=== PATIENT | female | born 1955 | race Caucasian/White ===

== ENCOUNTER 2020-07-26 01:47 | Inpatient (IN) ==
[2020-07-26] MEDS ORDERED: IPRATROPIUM/ALBUTEROL 3 ML AMPUL.NEB NEB ONE ×3 (01:55→02:40)
--- NOTE | 2020-07-26 02:15 | Emergency Department Note ---
SOB HPI General Chief Complaint: Shortness of Breath/Dyspnea Stated Complaint: shortness of breath Time Seen by Provider: 07/26/20 02:02 Source: family Mode of arrival: ambulatory Limitations: no limitations History of Present Illness HPI Narrative: This pleasant 64-year-old female describes shortness of breath since around 8:00. 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 She is a smoker. She does use her inhalers. She came in on her own ambulation. She has had some sweating but no fevers or chills. She has been coughing some. Has had some clear phlegm. She has a history of COPD. She continues to smoke 2 to 3 cigarettes/day. She has not had any associated sore throat, runny nose, change in smell or change in taste. Some mild chest discomforts. No nausea. No lightheadedness or dizziness Related Data Previous Rx's Medication Instructions Recorded albuterol sulfate 1 - 2 puff IH Q4H PRN #1 hfa.aer.ad 09/27/19 fluticasone propionate 2 puff INH BID #1 inhaler 12/18/19 Allergies Allergy/AdvReac Type Severity Reaction Status Date / Time aspirin AdvReac Unknown Gastrointestinal Verified 12/18/19 02:59 Upset Review of Systems ROS ROS Narrative: Narrative: See HPI No fevers or chills No sore throat or runny nose Chest pain as above Some coughing. No abdominal pain diarrhea constipation hematochezia No dysuria frequency No lightheadedness or dizziness No anxiety or depression. PFSH Narrative Patient History Narrative: DENIES diabetes, DVT, PE, ILIANA. Denies anxiety and depression. NO FAMILY HISTORY: Of asthma, diabetes, heart disease Medical/Surgical/Family History All Active Problems Hypoxia (Acute) COPD exacerbation (Acute) Abnormal chest x-ray (Acute) Exercise hypoxemia (Acute) Cigarette smoker (Chronic) Medical History (Updated 07/26/20 @ 09:42 by Boy Murphy DO) Abnormal chest x-ray (Acute) Cigarette smoker (Chronic) 2-3 per day (07-25-2020) COPD exacerbation (Acute) Exercise hypoxemia (Acute) Pleural effusion (Resolved) Surgical History (Updated 07/26/20 @ 09:26 by Boy Murphy DO) History of tonsillectomy (Acute) History of tubal ligation (Acute) Social History Smoking Status: Current every day smoker Alcohol Intake Frequency: 0-2 drinks per day Exam Narrative Narrative: Narrative: General Limitations: no limitations General appearance: alert, in no apparent distress (But moderately short of breath.) and nontoxic Head Head: atraumatic and normocephalic Eye Eye: Present normal appearance, PERRL and EOMI ENT ENT: Present normal oropharynx and mucous membranes dry (Mildly) Neck Neck: Present trachea midline; Absent lymphadenopathy and thyromegaly Chest Chest: Present symmetric chest wall rise Respiratory Respiratory: Present normal lung sounds bilaterally, wheezes (Scattered few wheezes after nebulizer treatment.) and other (After 1 nebulizer treatment still having some dyspnea with 6-7 words.); Absent respiratory distress, rales/crackles, stridor, accessory muscle use and prolonged expiratory phase Cardiovascular Cardiovascular: Present regular rate and normal rhythm; Absent systolic murmur and diastolic murmur Adbominal Abdominal: Present soft; Absent distention, tenderness, guarding, rebound, rigidity, organomegaly and mass Extremities Extremities: Absent pedal edema, pretibial edema, calf tenderness and cyanosis Back Back: Absent CVA tenderness (R), CVA tenderness (L) and spinous process tenderness Neurological Neurological: Present alert and oriented X3 Psychiatric Psychiatric: Present normal affect, anxious (mildly), polite and pleasant; Abs ent depressed, agitated and poor eye contact Skin Skin: Present warm and dry; Absent cyanosis and pallor Course Vital Signs Vital signs: Vital Signs Temperature 97.5 F 07/26/20 01:48 Pulse Rate 107 H 07/26/20 01:48 Respiratory Rate 17 07/26/20 01:48 Blood Pressure 143/75 07/26/20 01:48 Pulse Oximetry (%) 92 07/26/20 01:48 Temperature 97.8 F 07/26/20 09:10 Pulse Rate 97 H 07/26/20 09:00 Respiratory Rate 24 H 07/26/20 09:10 Blood Pressure 135/84 07/26/20 09:10 Pulse Oximetry (%) 93 07/26/20 09:10 [facility] MDM Narrative Medical decision making narrative: 2:04 AM - acute onset of shortness of breath with some wheeziness. Suspect asthmatic component of COPD versus pneumonia versus other infectious or coronary/cardiac component. ACS and pulmonary work- up. Chest x-ray was later added. This was read as "moderate COPD". ABG also later added and was fairly unremarkable for CO2 retention, acidosis, or hypoxia. Was done on 2 L. Patient does not usually use oxygen or have it available at home. Saturations witnessed to decrease into the upper 80s multiple times in this after several doses of DuoNeb. Because of the above I spoke with patient and she is agreeable to hospital admission. Hospital admission is requiring several hours of delay until 7 AM to know if we will have staff/bed availability. Patient is willing to wait. Approximately 7:45 AM, bed availability reassured and I spoke with the ospitalist, Dr. Vidal, who is agreeable to accept this patient for admission. Lab Data Result diagrams: 07/26/20 02:20 07/26/20 02:20 Labs: Lab Results 07/26/20 07/26/20 07/26/20 Range/Units 02:20 02:20 02:20 WBC 7.3 (4.50-11.00) K/mcL RBC 4.11 (3.59-5.38) M/mcL Hgb 13.3 (11.2-15.7) g/dL Hct 39.0 (34.1-44.9) % MCV 94.9 (80.0-100.0) fL MCH 32.4 (26.0-34.0) pg MCHC 34.1 (31.0-36.0) g/dL RDW 12.0 (11.5-14.5) % Plt Count 240 (140-440) K/mcL MPV 10.9 H (7.4-10.4) fL Gran % 55.8 (38.0-78.0) % Lymph % (Auto) 26.7 (15.5-49.0) % [place] % (Auto) 10.6 (1.0-12.0) % Eos % (Auto) 6.3 (0.0-7.0) % Baso % (Auto) 0.6 (0.0-2.0) % Gran # 4.06 (1.80-8.00) K/mcL Lymph # (Auto) 1.94 (1.50-4.80) K/mcL [place] # (Auto) 0.77 (0.10-0.90) K/mcL Eos # (Auto) 0.46 (0.00-0.70) K/mcL Baso # (Auto) 0.04 (0.00-0.30) K/mcL Sodium 142 (133-145) mmol/L Potassium 3.7 (3.3-5.1) mmol/L Chloride 106 (96-108) mmol/L Carbon Dioxide 22 (22-30) mmol/L Anion Gap 14.0 (8-16) BUN 16 (8-23) mg/dl Creatinine 0.8 (0.6-1.1) mg/dl GFR Calculation 77 Glucose 92 (70-105) mg/dL Calcium 9.7 (8.6-10.4) mg/dl Total Bilirubin 0.5 (0.0-1.0) mg/dL AST 18 (0-37) U/l ALT 12 (0-40) U/l Alkaline Phosphatase 94 (39-117) U/L Troponin T < 0.01 (0-0.03) ng/ml Total Protein 6.9 (5.9-8.4) gm/dL Albumin 4.1 (3.2-5.2) gm/dL Globulin 2.8 (2.2-3.7) gm/dL Albumin/Globulin Ratio 1.5 (1.0-2.3) Procalcitonin (<0.10) ng/mL 07/26/20 Range/Units 02:20 WBC (4.50-11.00) K/mcL RBC (3.59-5.38) M/mcL Hgb (11.2-15.7) g/dL Hct (34.1-44.9) % MCV (80.0-100.0) fL MCH (26.0-34.0) pg MCHC (31.0-36.0) g/dL RDW (11.5-14.5) % Plt Count (140-440) K/mcL MPV (7.4-10.4) fL Gran % (38.0-78.0) % Lymph % (Auto) (15.5-49.0) % [place] % (Auto) (1.0-12.0) % Eos % (Auto) (0.0-7.0) % Baso % (Auto) (0.0-2.0) % Gran # (1.80-8.00) K/mcL Lymph # (Auto) (1.50-4.80) K/mcL [place] # (Auto) (0.10-0.90) K/mcL Eos # (Auto) (0.00-0.70) K/mcL Baso # (Auto) (0.00-0.30) K/mcL Sodium (133-145) mmol/L Potassium (3.3-5.1) mmol/L Chloride (96-108) mmol/L Carbon Dioxide (22-30) mmol/L Anion Gap (8-16) BUN (8-23) mg/dl Creatinine (0.6-1.1) mg/dl GFR Calculation Glucose (70-105) mg/dL Calcium (8.6-10.4) mg/dl Total Bilirubin (0.0-1.0) mg/dL AST (0-37) U/l ALT (0-40) U/l Alkaline Phosphatase (39-117) U/L Troponin T (0-0.03) ng/ml Total Protein (5.9-8.4) gm/dL Albumin (3.2-5.2) gm/dL Globulin (2.2-3.7) gm/dL Albumin/Globulin Ratio (1.0-2.3) Procalcitonin 0.06 (<0.10) ng/mL Discharge Plan Patient/Caregiver Discharge Instructions Pt seen by HOSPICE CLINICAL MARKETER/PA only: No Clinical Impression: COPD exacerbation, Hypoxia Patient Disposition: Xfer As Outpt/Obs ([facility]) Condition: Fair Discharge Date/Time: 07/26/20 09:20
[2020-07-26] MEDS ORDERED: methylPREDNISolone SOD SUCC 125 MG/2 ML VIAL IV ONE (02:40)
[2020-07-26 03:15] LABS: Basophils # (Auto) 0.04 K/mcL (0.00-0.30); Basophils % (Auto) 0.6 % (0.0-2.0); Eosinophils # (Auto) 0.46 K/mcL (0.00-0.70); Eosinophils % (Auto) 6.3 % (0.0-7.0); Granulocytes % (Auto) 55.8 % (38.0-78.0); Hemoglobin 13.3 g/dL (11.2-15.7); Lymphocytes # (Auto) 1.94 K/mcL (1.50-4.80); Lymphocytes % (Auto) 26.7 % (15.5-49.0); Mean Cell Volume 94.9 fL (80.0-100.0); Mean Corpuscular HGB Conc 34.1 g/dL (31.0-36.0); Mean Platelet Volume 10.9 fL (7.4-10.4); Monocytes # (Auto) 0.77 K/mcL (0.10-0.90); Monocytes % (Auto) 10.6 % (1.0-12.0); Platelet Count 240 K/mcL (140-440); RBC 4.11 M/mcL (3.59-5.38); WBC 7.3 K/mcL (4.50-11.00)
[2020-07-26 03:35] LABS: ALT/SGPT 12 U/l (0-40); AST/SGOT 18 U/l (0-37); Albumin 4.1 gm/dL (3.2-5.2); Albumin/Globulin Ratio 1.5 (1.0-2.3); Alkaline Phosphatase 94 U/L (39-117); Bilirubin,Total 0.5 mg/dL (0.0-1.0); Blood Urea Nitrogen 16 mg/dl (8-23); Calcium 9.7 mg/dl (8.6-10.4); Carbon Dioxide 22 mmol/L (22-30); Chloride 106 mmol/L (96-108); Globulin 2.8 gm/dL (2.2-3.7); Glomerular Filtration Rate 77; Glucose 92 mg/dL (70-105)
[2020-07-26] MEDS ORDERED: AZITHROMYCIN 500 MG in DEXTROSE 5% IN WATER 250 ML IV ONE (05:30)
--- NOTE | 2020-07-26 08:00 | XRay Report ---
HISTORY: Smoker exacerbation of COPD and hypoxia FINDINGS: Lungs are hyperinflated. There is interstitial fibrosis throughout both lungs with the greatest involvement in the right lower lobe. There is no evidence of superimposed pneumonia at this time. No mass or congestive heart failure are present. There is no pleural effusion. The heart size is normal. There has been relatively little change since 12/18/19. IMPRESSION: Moderate COPD Interpreted and Authenticated by: Jett Parisi 07/26/20
--- NOTE | 2020-07-26 08:01 | Internal Med History&Physical ---
HPI History of Present Illness Patient information: Note initiated : 07/26/20 at 8:00 am Service Date, if different from initiated Date: [] Patient: Nuzhat Donis 64 y/o F admitted on for SOB . Chief Complaint: SOB History of present illness: Ms. Donis is a 64 year old F with a history of COPD/active smoking who presents to the ER with acute onset shortness of breath since last evening. 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 She felt an abrupt onset of shortness of breath. She was unable to breathe and presents to the ER. She denies prior similar episodes however she has known COPD and continues to smoke half to three-quarter pack a day. She denies exposure to sick contacts, fever, sore throat, loss of taste or smell, myalgias, chest pain or headache. Initial work-up in the ER was consistent with COPD exacerbation/chest imaging consistent with pneumonia. Patient was started on antibiotics along with bronchodilators. Cultures were drawn. Subsequently hospitalist service was consulted. Patient was markedly tachypneic and tachycardic on arrival requiring 3 L oxygen to maintain sats. COVID-19 test pending. At the time of my evaluation patient is able to talk in full sentences however she is sitting in bed appears minimally labored but says she has improved since arrival. She endorses history as above. Review of systems A 10 point review system was performed and is negative except for ones discussed above PFSH PFSH All Active Problems (Updated 07/26/20 @ 02:54 by Boy Murphy DO) COPD exacerbation (Acute) Exercise hypoxemia (Acute) Abnormal chest x-ray (Acute) Medical History (Updated 07/26/20 @ 02:54 by Boy Murphy DO) Pleural effusion (Resolved) Social History (Updated 09/30/19 @ 14:54 by EDUIN Ruby) smoking status: Current every day smoker tobacco type: cigarettes per day: 10 alcohol intake frequency: 0-2 drinks per day MEDS/ALLERGIES Home Medications and Allergies Home Medications Medication Instructions Recorded Confirmed Type albuterol sulfate 1 - 2 puff IH Q4H PRN #1 hfa.aer.ad 09/27/19 09/30/19 Rx fluticasone propionate 2 puff INH BID #1 inhaler 12/18/19 Rx Allergies Allergy/AdvReac Type Severity Reaction Status Date / Time aspirin AdvReac Unknown Gastrointestinal Verified 12/18/19 02:59 Upset EXAM Constitutional Vitals: Temp Pulse Resp BP Pulse Ox 97.5 F 88 22 110/63 93 07/26/20 01:48 07/26/20 07:18 07/26/20 02:06 07/26/20 07:18 07/26/20 07:18 Anxious, labored Head normocephalic Oral cavity moist No ear nose discharge Eye movement symmetrical Neck supple no lymphadenopathy S1-S2 tachycardia Rapid labored breathing Nondistended nontender abdomen Lower extremity no cyanosis clubbing or joint swelling Skin no suspicious lesion Psych anxious but alert cooperative Neuro normal higher function DATA Data Completed and Pending Labs: Labs from last 24 hours 07/26/20 07/26/20 07/26/20 02:20 02:20 02:20 WBC RBC Hgb Hct MCV MCH MCHC RDW Plt Count MPV Gran % Lymph % (Auto) [place] % (Auto) Eos % (Auto) Baso % (Auto) Gran # Lymph # (Auto) [place] # (Auto) Eos # (Auto) Baso # (Auto) Sodium 142 Potassium 3.7 Chloride 106 Carbon Dioxide 22 Anion Gap 14.0 BUN 16 Creatinine 0.8 GFR Calculation 77 Glucose 92 Calcium 9.7 Total Bilirubin 0.5 AST 18 ALT 12 Alkaline Phosphatase 94 Troponin T < 0.01 Total Protein 6.9 Albumin 4.1 Globulin 2.8 Albumin/Globulin Ratio 1.5 Procalcitonin 0.06 07/26/20 02:20 WBC 7.3 RBC 4.11 Hgb 13.3 Hct 39.0 MCV 94.9 MCH 32.4 MCHC 34.1 RDW 12.0 Plt Count 240 MPV 10.9 H Gran % 55.8 Lymph % (Auto) 26.7 [place] % (Auto) 10.6 Eos % (Auto) 6.3 Baso % (Auto) 0.6 Gran # 4.06 Lymph # (Auto) 1.94 [place] # (Auto) 0.77 Eos # (Auto) 0.46 Baso # (Auto) 0.04 Sodium Potassium Chloride Carbon Dioxide Anion Gap BUN Creatinine GFR Calculation Glucose Calcium Total Bilirubin AST ALT Alkaline Phosphatase Troponin T Total Protein Albumin Globulin Albumin/Globulin Ratio Procalcitonin A/P Narrative A/P Narrative: * Acute exacerbation of COPD. Continue bronchodilators/steroids/supplemental oxygen. * Acute hypoxic respiratory failure PO2 60 on 2 L oxygen on ABG. * Interstitial fibrosis on chest imaging. * Tobacco dependence-counseled for cessation * Full code * Prophylaxis heparin Plan * PCU observation admit * Bronchodilators steroids * Antibiotic coverage * Supplemental oxygen * PT OT nutrition support Time Spent With Patient Time: Total time spent is greater than 50% in coordination of care (as documented) at patient's floor/unit and/or counseling patient:
[2020-07-26] MEDS ORDERED: POLYETHYLENE GLYCOL 3350 17 GM PACKET PO PRN (09:10)
[2020-07-26] MEDS ORDERED: ACETAMINOPHEN 650 MG/65 ML BOTTLE IV PRN (09:10)
[2020-07-26] MEDS ORDERED: MELATONIN 3 MG TABLET PO PRN (09:10)
[2020-07-26] MEDS ORDERED: POTASSIUM CHLORIDE 20 MEQ PACKET PO PRN (09:10)
[2020-07-26] MEDS ORDERED: METOPROLOL TARTRATE 5 MG/5 ML VIAL IV PRN (09:10)
[2020-07-26] MEDS ORDERED: ONDANSETRON 4 MG/2 ML VIAL IV PRN (09:10)
[2020-07-26] MEDS ORDERED: BISACODYL 10 MG SUPP.RECT PR PRN (09:10)
[2020-07-26] MEDS ORDERED: LEVOFLOXACIN 750 MG/150 ML BAG IV SCH (09:10)
[2020-07-26] MEDS ORDERED: ACETAMINOPHEN 325 MG TABLET PO PRN (09:10)
[2020-07-26] MEDS ORDERED: HYDROmorphone 0.5 MG/0.5 ML SYRINGE IV PRN (09:10)
[2020-07-26] MEDS ORDERED: MAGNESIUM SULFATE 2 GM/50 ML BAG IV PRN (09:10)
[2020-07-26] MEDS ORDERED: ONDANSETRON 4 MG ODT TABLET SL PRN (09:10)
[2020-07-26] MEDS: 0.9 % SODIUM CHLORIDE 1,000 ML IV SCH (10:39)
[2020-07-26] MEDS: HEPARIN 5,000 UNIT/ML VIAL SQ SCH ×2 (10:40→21:47)
[2020-07-26] MEDS: DOCUSATE SODIUM 100 MG CAPSULE PO SCH ×2 (10:40→21:47)
[2020-07-26] MEDS: MULTIVIT,THER IRON,CA,FA & MIN 1 TABLET PO SCH (10:40)
[2020-07-26] MEDS: LEVOFLOXACIN 750 MG/150 ML BAG IV SCH (11:07)
[2020-07-26] MEDS: BUDESONIDE 0.5 MG/2 ML AMPUL.NEB NEB SCH ×2 (12:15→20:38)
[2020-07-26] MEDS ORDERED: BUDESONIDE 0.5 MG/2 ML AMPUL.NEB ONE (12:20)
[2020-07-26] MEDS: 0.9 % SODIUM CHLORIDE 10 ML SYRINGE IV SCH ×2 (12:57→21:47)
[2020-07-26] MEDS: methylPREDNISolone SOD SUCC 125 MG/2 ML VIAL IV SCH ×2 (12:57→18:31)
[2020-07-26] MEDS: NICOTINE 7 MG PATCH TOPICAL SCH (20:14)
[2020-07-26] MEDS ORDERED: MONTELUKAST 10 MG TABLET PO SCH (21:00)
[2020-07-26] MEDS ORDERED: SENNOSIDES/DOCUSATE SODIUM 1 TAB TABLET PO SCH (21:00)
[2020-07-27] MEDS: methylPREDNISolone SOD SUCC 125 MG/2 ML VIAL IV SCH ×2 (00:05→05:47)
[2020-07-27] MEDS: 0.9 % SODIUM CHLORIDE 10 ML SYRINGE IV SCH ×3 (05:47→22:18)
[2020-07-27] MEDS: IPRATROPIUM/ALBUTEROL 3 ML AMPUL.NEB NEB PRN ×3 (05:56→20:48)
[2020-07-27 06:17] LABS: Hematocrit 37.5 % (34.1-44.9); Hemoglobin 12.5 g/dL (11.2-15.7); Mean Cell Volume 97.4 fL (80.0-100.0); Mean Corpuscular HGB Conc 33.3 g/dL (31.0-36.0); Mean Platelet Volume 11.4 fL (7.4-10.4); Platelet Count 242 K/mcL (140-440); RBC 3.85 M/mcL (3.59-5.38); WBC 11.3 K/mcL (4.50-11.00)
[2020-07-27 07:22] LABS: Bilirubin,Direct < 0.2 mg/dL (0.0-0.3)
[2020-07-27 07:28] LABS: ALT/SGPT 11 U/l (0-40); AST/SGOT 15 U/l (0-37); Albumin 3.6 gm/dL (3.2-5.2); Albumin/Globulin Ratio 1.4 (1.0-2.3); Alkaline Phosphatase 87 U/L (39-117); Bilirubin,Total 0.3 mg/dL (0.0-1.0); Blood Urea Nitrogen 14 mg/dl (8-23); Calcium 9.2 mg/dl (8.6-10.4); Carbon Dioxide 19 mmol/L (22-30); Chloride 110 mmol/L (96-108); Globulin 2.6 gm/dL (2.2-3.7); Glomerular Filtration Rate 77; Glucose 147 mg/dL (70-105); Lactate Dehydrogenase 206 U/L (94-250); Phosphorous 3.5 mg/dL (2.7-4.5); Triglycerides 53 mg/dl (<150); Uric Acid 3.6 mg/dL (2.5-8.0)
[2020-07-27 08:25] LABS: Band Neutrophils % 1 % (0-10); Lymphocytes % 5 % (15-49); Monocytes % (Manual) 3 % (1-12); Platelet Estimate NORMAL (NORMAL); RBC Morphology NORMAL (NORMAL); Segmented Neutrophils % 91 % (38-78)
[2020-07-27] MEDS: BUDESONIDE 0.5 MG/2 ML AMPUL.NEB NEB SCH ×2 (09:28→20:48)
[2020-07-27] MEDS: 0.9 % SODIUM CHLORIDE 1,000 ML IV SCH ×2 (09:35→11:03)
[2020-07-27] MEDS: MULTIVIT,THER IRON,CA,FA & MIN 1 TABLET PO SCH (09:36)
[2020-07-27] MEDS: HEPARIN 5,000 UNIT/ML VIAL SQ SCH ×2 (09:36→22:18)
[2020-07-27] MEDS: DOCUSATE SODIUM 100 MG CAPSULE PO SCH ×2 (09:36→22:18)
[2020-07-27] MEDS: LEVOFLOXACIN 750 MG/150 ML BAG IV SCH (09:36)
[2020-07-27] MEDS: NICOTINE 7 MG PATCH TOPICAL SCH (09:40)
[2020-07-27] MEDS ORDERED: PNEUMOCOCCAL 23-VAL P-SAC VAC 0.5 ML SYRINGE IM ONE (10:00)
[2020-07-27] MEDS ORDERED: FLU VACC QS2020-21(6MOS UP)/PF 60 MCG/0.5 ML SYRINGE IM ONE (10:00)
--- NOTE | 2020-07-27 10:08 | Internal Med Progress Note ---
SUBJECTIVE Subjective Patient information: Note initiated : 07/27/20 at 10:05 am Service Date, if different from initiated Date: [] Patient: Nuzhat Donis 64 y/o F admitted on 07/26/20 for SOB . Chief Complaint: Ms. Donis is a 64 year old F with a history of COPD/active smoking who presents to the ER with acute onset shortness of breath since last evening. 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 She felt an abrupt onset of shortness of breath. She was unable to breathe and presents to the ER. She denies prior similar episodes however she has known COPD and continues to smoke half to three-quarter pack a day. She denies exposure to sick contacts, fever, sore throat, loss of taste or smell, myalgias, chest pain or headache. Initial work-up in the ER was consistent with COPD exacerbation/chest imaging consistent with pneumonia. Patient was started on antibiotics along with bronchodilators. Cultures were drawn. Subsequently hospitalist service was consulted. Patient was markedly tachypneic and tachycardic on arrival requiring 3 L oxygen to maintain sats. COVID-19 test pending. At the time of my evaluation patient is able to talk in full sentences however she is sitting in bed appears minimally labored but says she has improved since arrival. 07/27 patient doing remarkably well. White count 11.3 on Solu-Medrol. Clini arnaldo improved now on 2 L oxygen. Continue antibiotic coverage for pneumonia. Feels a lot better. Stable hemodynamics. COVID negative. Transfer to medical floor. Wean oxygen as tolerated. Continue bronchodilators. Smoking cessation counseling performed. Constitutional Vitals: Vital Signs Temp Pulse Resp BP Pulse Ox 98.1 F 73 20 106/69 95 07/27/20 08:42 07/27/20 09:39 07/27/20 09:39 07/27/20 08:42 07/27/20 08:42 Period Temp Pulse Resp BP Sys/Gorman Pulse Ox Last 24 Hr 97.7 F-98.3 F 73-93 15-31 106-134/60-76 92-97 Intake and Output 07/26/20 07/27/20 07/27/20 21:59 05:59 13:59 Intake Total 480 1120 Output Total 950 500 Balance -470 -500 1120 Weight 54.703 kg alert oriented On 2 L oxygen Minimally labored breathing No telemetry events Intake & Output: Intake & Output 07/26/20 07/27/20 07/27/20 21:59 05:59 13:59 Intake Total 480 1120 Output Total 950 500 Balance -470 -500 1120 Weight 54.703 kg Intake: IV 1000 Sodium Chloride 0.9% 1,000 ml @ 1000 50 mls/hr IV .Q20H [facility] Rx#: [id number] Oral 480 120 Output: Void Amount 950 500 Other: Meal Dinner Breakfast Percent of Meal Consumed 75% 100% Feeding Ability Independent Urine Appearance Clear Clear Urine Color Bright Yellow Bright Yellow Urine Odor Normal OBJ DATA Labs CBC & Chem 7: 07/27/20 04:40 07/27/20 04:40 Labs: Abnormal Lab Results 07/27/20 07/27/20 07/26/20 04:40 04:40 02:20 WBC 11.3 H MPV 11.4 H 10.9 H Seg Neutrophils % 91 H Lymphocytes % 5 L Chloride 110 H Carbon Dioxide 19 L Glucose 147 H Meds: Medications Acetaminophen (Tylenol) 650 mg PO Q4-6HP PRN; Protocol PRN Reason: Per Pain Protocol/Fever > 101 Albuterol/Ipratropium (Duoneb) 3 ml NEB Q4HP PRN PRN Reason: Shortness Of Breath Last Admin: 07/27/20 09:28 Dose: 3 ml Documented by: Bisacodyl (Dulcolax) 10 mg FL Q2-3DAYS PRN PRN Reason: Constipation Budesonide (Pulmicort) 0.5 mg NEB Q12 [facility] Last Admin: 07/27/20 09:28 Dose: 0.5 mg Documented by: Docusate Sodium (Colace) 100 mg PO BID [facility] Last Admin: 07/27/20 09:36 Dose: 100 mg Documented by: Heparin Sodium (Porcine) (Heparin) 5,000 unit SQ Q12 [facility] Last Admin: 07/27/20 09:36 Dose: 5,000 unit Documented by: Hydromorphone HCl (Dilaudid) 0.25 - 0.5 mg IV Q4HP PRN; Protocol PRN Reason: Per Pain Protocol Sodium Chloride (Sodium Chloride 0.9%) 1,000 mls @ 50 mls/hr IV .Q20H [facility] Stop: 07/28/20 21:09 Last Admin: 07/27/20 09:35 Dose: 50 mls/hr Documented by: Acetaminophen (Ofirmev) 650 mg in 65 mls @ 130 mls/hr IV Q6HP PRN; Protocol PRN Reason: Per Pain Protocol/Fever > 101 Magnesium Sulfate (Magnesium Sulfate) 2 gm in 50 mls @ 50 mls/hr IV UD PRN PRN Reason: MG = or < 1.7 Levofloxacin (Levaquin) 750 mg in 150 mls @ 100 mls/hr IV Q24H [facility]; Protocol Last Admin: 07/27/20 09:36 Dose: 100 mls/hr Documented by: Iron Carb/Multivit/[place]/Folic Acid (Multivitamin W/Minerals) 1 tab PO DAILY [facility] Last Admin: 07/27/20 09:36 Dose: 1 tab Documented by: Melatonin (Melatonin 3mg Tablet) 3 mg PO HSP PRN PRN Reason: Insomnia Methylprednisolone Sodium Succinate (Solu-Medrol) 60 mg IV Q6 [facility] Last Admin: 07/27/20 05:47 Dose: 60 mg Documented by: Metoprolol Tartrate (Lopressor) 5 mg IV Q5M PRN PRN Reason: Heart Rate > 140 bpm Montelukast Sodium (Singular) 10 mg PO [facility] Last Admin: 07/26/20 21:47 Dose: 10 mg Documented by: Nicotine (Nicoderm) 7 mg TOPICAL DAILY@1000 [facility] Last Admin: 07/27/20 09:40 Dose: 7 mg Documented by: Ondansetron HCl (Zofran Odt) 4 mg SL Q4-6HP PRN; Protocol PRN Reason: Nausea And Vomiting Ondansetron HCl (Zofran) 4 mg IV Q4-6HP PRN; Protocol PRN Reason: Nausea And Vomiting Polyethylene Glycol (Miralax) 17 gm PO DAILYP PRN PRN Reason: Constipation Potassium Chloride (Klor-Con) 40 meq PO DAILYP PRN PRN Reason: K+ < 3.5 Senna/Docusate Sodium (Senna Plus Tablet) 1 tab PO [facility] Last Admin: 07/26/20 21:47 Dose: Not Given Documented by: Sodium Chloride (Saline Flush) 10 ml IV Q8 [facility] Last Admin: 07/27/20 05:47 Dose: 10 ml Documented by: A/P Narrative A/P Narrative: * Acute exacerbation of COPD. Clinically improving on bronchodilators/steroids/supplemental oxygen. Transfer to medical floor. Switch to oral steroids * Acute hypoxic respiratory failure PO2 60 -wean oxygen as tolerated. Clinically improving. * Interstitial fibrosis on chest imaging. * Tobacco dependence-counseled for cessation * Full code * Prophylaxis heparin Plan * Transfer to medical floor * Switch to oral steroid * Continue antibiotic coverage * Wean oxygen as tolerated * PT OT nutrition support * Discharge planning Time Spent With Patient Time: Total time spent is greater than 50% in coordination of care (as documented) at patient's floor/unit and/or counseling patient: QUALITY VTE Deep Vein Thrombosis/Pulmonary Embolism Present on Admission: No
[2020-07-27] MEDS ORDERED: ONDANSETRON 4 MG ODT TABLET SL PRN (10:31)
[2020-07-27] MEDS ORDERED: ONDANSETRON 4 MG/2 ML VIAL IV PRN (10:31)
[2020-07-27] MEDS ORDERED: MAGNESIUM SULFATE 2 GM/50 ML BAG IV PRN (10:31)
[2020-07-27] MEDS ORDERED: MELATONIN 3 MG TABLET PO PRN (10:31)
[2020-07-27] MEDS ORDERED: METOPROLOL TARTRATE 5 MG/5 ML VIAL IV PRN (10:31)
[2020-07-27] MEDS ORDERED: POTASSIUM CHLORIDE 20 MEQ PACKET PO PRN (10:31)
[2020-07-27] MEDS ORDERED: POLYETHYLENE GLYCOL 3350 17 GM PACKET PO PRN (10:31)
[2020-07-27] MEDS ORDERED: ACETAMINOPHEN 325 MG TABLET PO PRN (10:31)
[2020-07-27] MEDS ORDERED: HYDROmorphone 0.5 MG/0.5 ML SYRINGE IV PRN (10:31)
[2020-07-27] MEDS ORDERED: BISACODYL 10 MG SUPP.RECT PR PRN (10:31)
[2020-07-27] MEDS ORDERED: ACETAMINOPHEN 650 MG/65 ML BOTTLE IV PRN (10:31)
[2020-07-27] MEDS ORDERED: LEVOFLOXACIN 750 MG/150 ML BAG IV SCH (11:00)
[2020-07-27] MEDS: predniSONE 20 MG TABLET PO SCH (11:12)
[2020-07-27] MEDS: SENNOSIDES/DOCUSATE SODIUM 1 TAB TABLET PO SCH (22:17)
[2020-07-27] MEDS: MONTELUKAST 10 MG TABLET PO SCH (22:18)
[2020-07-28] MEDS: 0.9 % SODIUM CHLORIDE 10 ML SYRINGE IV SCH ×3 (05:35→23:08)
[2020-07-28] MEDS: 0.9 % SODIUM CHLORIDE 1,000 ML IV SCH (05:41)
[2020-07-28 06:50] LABS: Hematocrit 38.7 % (34.1-44.9); Hemoglobin 12.6 g/dL (11.2-15.7); Mean Corpuscular HGB Conc 32.6 g/dL (31.0-36.0); Platelet Count 257 K/mcL (140-440); RBC 3.91 M/mcL (3.59-5.38); Red Cell Distribution Width 12.5 % (11.5-14.5); WBC 14.1 K/mcL (4.50-11.00)
[2020-07-28 07:09] LABS: ALT/SGPT 11 U/l (0-40); AST/SGOT 14 U/l (0-37); Albumin 3.6 gm/dL (3.2-5.2); Albumin/Globulin Ratio 1.4 (1.0-2.3); Alkaline Phosphatase 76 U/L (39-117); Bilirubin,Direct < 0.2 mg/dL (0.0-0.3); Bilirubin,Total 0.2 mg/dL (0.0-1.0); Blood Urea Nitrogen 16 mg/dl (8-23); Carbon Dioxide 22 mmol/L (22-30); Chloride 108 mmol/L (96-108); Globulin 2.6 gm/dL (2.2-3.7); Glomerular Filtration Rate 77; Glucose 102 mg/dL (70-105); Lactate Dehydrogenase 164 U/L (94-250); Triglycerides 147 mg/dl (<150); Uric Acid 3.2 mg/dL (2.5-8.0)
[2020-07-28] MEDS: predniSONE 20 MG TABLET PO SCH (08:21)
[2020-07-28] MEDS: BUDESONIDE 0.5 MG/2 ML AMPUL.NEB NEB SCH ×2 (08:24→21:06)
[2020-07-28 08:38] LABS: Band Neutrophils % 1 % (0-10); Lymphocytes % 15 % (15-49); Monocytes % (Manual) 7 % (1-12); Platelet Estimate NORMAL (NORMAL); RBC Morphology NORMAL (NORMAL); Segmented Neutrophils % 77 % (38-78)
--- NOTE | 2020-07-28 10:26 | XRay Report ---
HISTORY: COPD FINDINGS: The lungs are moderately hyperinflated with flattened diaphragms. The flattening of the diaphragms has become worse since 07/26/20. There is no evidence of pneumonia, congestive heart failure, mass or pleural effusion. The heart size is normal. IMPRESSION: Worsening air trapping with hyperinflated lungs Interpreted and Authenticated by: Jett Parisi 07/28/20
[2020-07-28] MEDS: MULTIVIT,THER IRON,CA,FA & MIN 1 TABLET PO SCH (11:14)
[2020-07-28] MEDS: DOCUSATE SODIUM 100 MG CAPSULE PO SCH ×2 (11:14→23:09)
--- NOTE | 2020-07-28 11:14 | Internal Med Progress Note ---
SUBJECTIVE Subjective Patient information: Note initiated : 07/28/20 at 11:11 am Service Date, if different from initiated Date: [] Patient: Nuzhat Donis 64 y/o F admitted on 07/26/20 for SOB . Chief Complaint: Ms. Donis is a 64 year old F with a history of COPD/active smoking who presents to the ER with acute onset shortness of breath since last evening. 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 She felt an abrupt onset of shortness of breath. She was unable to breathe and presents to the ER. She denies prior similar episodes however she has known COPD and continues to smoke half to three-quarter pack a day. She denies exposure to sick contacts, fever, sore throat, loss of taste or smell, myalgias, chest pain or headache. Initial work-up in the ER was consistent with COPD exacerbation/chest imaging consistent with pneumonia. Patient was started on antibiotics along with bronchodilators. Cultures were drawn. Subsequently hospitalist service was consulted. Patient was markedly tachypneic and tachycardic on arrival requiring 3 L oxygen to maintain sats. COVID-19 test pending. At the time of my evaluation patient is able to talk in full sentences however she is sitting in bed appears minimally labored but says she has improved since arrival. 07/27 patient doing remarkably well. White count 11.3 on Solu-Medrol. Clini arnaldo improved now on 2 L oxygen. Continue antibiotic coverage for pneumonia. Feels a lot better. Stable hemodynamics. COVID negative. Transfer to medical floor. Wean oxygen as tolerated. Continue bronchodilators. Smoking cessation counseling performed. 07/28-patient doing well. Persistent cough. On oral prednisone/bronchodilators. White count 14.1. Interval chest imaging hyperinflated lung. Continue pulmonary toilet/bronchodilators. Counseled for smoking cessation. Constitutional Vitals: Vital Signs Temp Pulse Resp BP Pulse Ox 98.3 F 69 19 121/72 94 07/28/20 07:19 07/28/20 08:25 07/28/20 08:25 07/28/20 07:19 07/28/20 07:19 Period Temp Pulse Resp BP Sys/Gorman Pulse Ox Last 24 Hr 97.8 F-98.3 F 61-83 16-20 121-141/66-85 91-94 Intake and Output 07/27/20 07/28/20 07/28/20 21:59 05:59 13:59 Intake Total 450 Output Total 850 Balance -400 Weight 56.699 kg Alert oriented Minimal anxiety Nonlabored breathing Frequent cough Intake & Output: Intake & Output 07/27/20 07/28/20 07/28/20 21:59 05:59 13:59 Intake Total 450 Output Total 850 Balance -400 Weight 56.699 kg Intake: Oral 450 Output: Void Amount 850 Other: Meal Dinner Percent of Meal Consumed 0% Feeding Ability Independent Urine Appearance Clear Urine Color Bright Yellow OBJ DATA Labs CBC & Chem 7: 07/28/20 05:45 07/28/20 05:45 Labs: Abnormal Lab Results 07/28/20 07/27/20 07/27/20 05:45 04:40 04:40 WBC 14.1 H 11.3 H MPV 11.0 H 11.4 H Seg Neutrophils % 91 H Lymphocytes % 5 L Chloride 110 H Carbon Dioxide 19 L Glucose 147 H 07/26/20 02:20 WBC MPV 10.9 H Seg Neutrophils % Lymphocytes % Chloride Carbon Dioxide Glucose Meds: Medications Acetaminophen (Tylenol) 650 mg PO Q4-6HP PRN; Protocol PRN Reason: Per Pain Protocol/Fever > 101 Albuterol/Ipratropium (Duoneb) 3 ml NEB Q4HP PRN PRN Reason: Shortness Of Breath Last Admin: 07/27/20 20:48 Dose: 3 ml Documented by: Bisacodyl (Dulcolax) 10 mg [place] Q2-3DAYS PRN PRN Reason: Constipation Budesonide (Pulmicort) 0.5 mg NEB Q12 [facility] Last Admin: 07/28/20 08:24 Dose: 0.5 mg Documented by: Docusate Sodium (Colace) 100 mg PO BID [facility] Last Admin: 07/27/20 22:18 Dose: 100 mg Documented by: Heparin Sodium (Porcine) (Heparin) 5,000 unit SQ Q12 [facility] Last Admin: 07/27/20 22:18 Dose: 5,000 unit Documented by: Hydromorphone HCl (Dilaudid) 0.25 - 0.5 mg IV Q4HP PRN; Protocol PRN Reason: Per Pain Protocol Sodium Chloride (Sodium Chloride 0.9%) 1,000 mls @ 50 mls/hr IV .Q20H [facility] Stop: 07/28/20 21:09 Last Admin: 07/28/20 05:41 Dose: 50 mls/hr Documented by: Acetaminophen (Ofirmev) 650 mg in 65 mls @ 130 mls/hr IV Q6HP PRN; Protocol PRN Reason: Per Pain Protocol/Fever > 101 Magnesium Sulfate (Magnesium Sulfate) 2 gm in 50 mls @ 50 mls/hr IV UD PRN PRN Reason: MG = or < 1.7 Levofloxacin (Levaquin) 750 mg in 150 mls @ 100 mls/hr IV Q24H [facility]; Protocol Iron Carb/Multivit/[place]/Folic Acid (Multivitamin W/Minerals) 1 tab PO DAILY [facility] Melatonin (Melatonin 3mg Tablet) 3 mg PO HSP PRN PRN Reason: Insomnia Metoprolol Tartrate (Lopressor) 5 mg IV Q5M PRN PRN Reason: Heart Rate > 140 bpm Montelukast Sodium (Singular) 10 mg PO [facility] Last Admin: 07/27/20 22:18 Dose: 10 mg Documented by: Nicotine (Nicoderm) 7 mg TOPICAL DAILY@1000 [place] Ondansetron HCl (Zofran Odt) 4 mg SL Q4-6HP PRN; Protocol PRN Reason: Nausea And Vomiting Ondansetron HCl (Zofran) 4 mg IV Q4-6HP PRN; Protocol PRN Reason: Nausea And Vomiting Polyethylene Glycol (Miralax) 17 gm PO DAILYP PRN PRN Reason: Constipation Potassium Chloride (Klor-Con) 40 meq PO DAILYP PRN PRN Reason: K+ < 3.5 Prednisone (Prednisone) 40 mg PO [facility] Last Admin: 07/28/20 08:21 Dose: 40 mg Documented by: Senna/Docusate Sodium (Senna Plus Tablet) 1 tab PO [facility] Last Admin: 07/27/20 22:17 Dose: 1 tab Documented by: Sodium Chloride (Saline Flush) 10 ml IV Q8 [facility] Last Admin: 07/28/20 05:35 Dose: Not Given Documented by: A/P Narrative A/P Narrative: * Acute exacerbation of COPD. Continued improvement noted on bronchodilators/steroids/supplemental oxygen. Continue pulmonary toilet * Acute hypoxic respiratory failure PO2 60 -down to 1 L oxygen. Feeling better since previous day. * Interstitial fibrosis on chest imaging. * Tobacco dependence-counseled for cessation * Full code * Prophylaxis heparin Plan * Continue steroid and bronchodilators * Continue antibiotic coverage * Wean oxygen as tolerated to maintain sats around 88% * PT OT nutrition support * Discharge planning likely in 24 to 48 hours pending clinical improvement Time Spent With Patient Time: Total time spent is greater than 50% in coordination of care (as documented) at patient's floor/unit and/or counseling patient: QUALITY VTE Deep Vein Thrombosis/Pulmonary Embolism Present on Admission: No
[2020-07-28] MEDS: NICOTINE 7 MG PATCH TOPICAL SCH (11:16)
[2020-07-28] MEDS: HEPARIN 5,000 UNIT/ML VIAL SQ SCH ×2 (11:16→23:08)
[2020-07-28] MEDS: LEVOFLOXACIN 750 MG/150 ML BAG IV SCH (11:28)
[2020-07-28] MEDS: MONTELUKAST 10 MG TABLET PO SCH (23:07)
[2020-07-28] MEDS: SENNOSIDES/DOCUSATE SODIUM 1 TAB TABLET PO SCH (23:08)
[2020-07-29] MEDS: 0.9 % SODIUM CHLORIDE 10 ML SYRINGE IV SCH ×3 (04:22→22:07)
[2020-07-29] MEDS: predniSONE 20 MG TABLET PO SCH (07:31)
[2020-07-29] MEDS: BUDESONIDE 0.5 MG/2 ML AMPUL.NEB NEB SCH ×2 (08:33→21:06)
[2020-07-29 08:57] LABS: Hematocrit 36.7 % (34.1-44.9); Hemoglobin 12.1 g/dL (11.2-15.7); Mean Cell Volume 96.6 fL (80.0-100.0); Mean Platelet Volume 11.4 fL (7.4-10.4); Platelet Count 247 K/mcL (140-440); Red Cell Distribution Width 12.3 % (11.5-14.5); WBC 8.1 K/mcL (4.50-11.00)
[2020-07-29] MEDS: HEPARIN 5,000 UNIT/ML VIAL SQ SCH ×2 (09:06→22:07)
[2020-07-29] MEDS: MULTIVIT,THER IRON,CA,FA & MIN 1 TABLET PO SCH (09:06)
[2020-07-29] MEDS: DOCUSATE SODIUM 100 MG CAPSULE PO SCH ×2 (09:06→22:07)
[2020-07-29] MEDS: LEVOFLOXACIN 750 MG/150 ML BAG IV SCH (09:07)
[2020-07-29] MEDS: NICOTINE 7 MG PATCH TOPICAL SCH (09:07)
[2020-07-29 09:53] LABS: ALT/SGPT 12 U/l (0-40); AST/SGOT 14 U/l (0-37); Albumin 3.4 gm/dL (3.2-5.2); Albumin/Globulin Ratio 1.4 (1.0-2.3); Alkaline Phosphatase 73 U/L (39-117); Bilirubin,Direct < 0.2 mg/dL (0.0-0.3); Bilirubin,Total 0.2 mg/dL (0.0-1.0); Blood Urea Nitrogen 14 mg/dl (8-23); Calcium 8.7 mg/dl (8.6-10.4); Carbon Dioxide 27 mmol/L (22-30); Chloride 108 mmol/L (96-108); Globulin 2.4 gm/dL (2.2-3.7); Glomerular Filtration Rate 77; Glucose 81 mg/dL (70-105); Lactate Dehydrogenase 162 U/L (94-250); Triglycerides 165 mg/dl (<150); Uric Acid 3.7 mg/dL (2.5-8.0)
[2020-07-29 12:03] LABS: Eosinophils % (Manual) 4 % (0-7); Lymphocytes % 31 % (15-49); Monocytes % (Manual) 9 % (1-12); Platelet Estimate NORMAL (NORMAL); RBC Morphology NORMAL (NORMAL); Segmented Neutrophils % 56 % (38-78)
--- NOTE | 2020-07-29 18:48 | Internal Med Progress Note ---
SUBJECTIVE Subjective Patient information: Note initiated : 07/29/20 at 6:40 pm Service Date, if different from initiated Date: [] Patient: Nuzhat Donis 64 y/o F admitted on 07/26/20 for SOB . Chief Complaint: [] Ms. Donis is a 64 year old F with a history of COPD/active smoking who presents to the ER with acute onset shortness of breath since last evening. 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 She felt an abrupt onset of shortness of breath. She was unable to breathe and presents to the ER. She denies prior similar episodes however she has known COPD and continues to smoke half to three-quarter pack a day. She denies exposure to sick contacts, fever, sore throat, loss of taste or smell, myalgias, chest pain or headache. Initial work-up in the ER was consistent with COPD exacerbation/chest imaging consistent with pneumonia. Patient was started on antibiotics along with bronchodilators. Cultures were drawn. Subsequently hospitalist service was consulted. Patient was markedly tachypneic and tachycardic on arrival requiring 3 L oxygen to maintain sats. COVID-19 test pending. At the time of my evaluation patient is able to talk in full sentences however she is sitting in bed appears minimally labored but says she has improved since arrival. 07/27 patient doing remarkably well. White count 11.3 on Solu-Medrol. Cli nically improved now on 2 L oxygen. Continue antibiotic coverage for pneumonia. Feels a lot better. Stable hemodynamics. COVID negative. Transfer to medical floor. Wean oxygen as tolerated. Continue bronchodilators. Smoking cessation counseling performed. 07/28-patient doing well. Persistent cough. On oral prednisone/bronchodilators. White count 14.1. Interval chest imaging hyperinflated lung. Continue pulmonary toilet/bronchodilators. Counseled for smoking cessation. 07/29 Patient still has mild shortness of breath but generally speaking she feels fine. Denies nausea, vomiting, fever, or chills. WBC 8.1 today, 14.1 yesterday. Oxygen saturation is fine on 0.5 to 1.5 L. I discussed with her about smoking cessation. ROS: Positive for shortness of breath. All other systems were reviewed and negative Constitutional Vitals: Vital Signs Temp Pulse Resp BP Pulse Ox 98.7 F 87 16 122/79 93 09/19/20 16:00 07/29/20 16:00 07/29/20 16:00 07/29/20 16:00 07/29/20 16:00 Period Temp Pulse Resp BP Sys/Gorman Pulse Ox Last 24 Hr 97.4 F-98.7 F 61-87 16-22 122-156/65-87 92-97 Intake and Output 07/29/20 07/29/20 07/29/20 05:59 13:59 21:59 Intake Total 1120 500 Balance 1120 500 Intake & Output: Intake & Output 07/29/20 07/29/20 07/29/20 05:59 13:59 21:59 Intake Total 1120 500 Balance 1120 500 Intake: IV 1000 Sodium Chloride 0.9% 1,000 ml @ 1000 50 mls/hr IV .Q20H [facility] Rx#: [id number] Oral 120 500 Other: Meal Lunch Percent of Meal Consumed 75% Feeding Ability Independent Urine Appearance Clear Urine Color Straw Urine Odor Normal # Voids 4 Additional findings Additional findings: General - No acute distress Eyes - PERRLA, EOM intact ENT no rhinorrhea, no noticeable or palpable swelling, no redness or rash around throat or on face Neck supple, no JVD, no thyromegaly Respiratory: Lungs - diminshed BS, no use of accessary muscles. Cardiovascular - RRR no m/r/g, GI - Normal bowel sounds, no distended, soft. Extremeties - No edema, cyanosis or clubbing Hemo/lymphatic/immune no lymphadenopathy Neurological Alert and oriented x 3, no focal neurological deficits. Psychiatry flat affect OBJ DATA Labs CBC & Chem 7: 07/29/20 06:00 07/29/20 06:00 Labs: Abnormal Lab Results 07/29/20 07/29/20 07/28/20 06:00 06:00 05:45 WBC 14.1 H MPV 11.4 H 11.0 H Seg Neutrophils % Lymphocytes % Chloride Carbon Dioxide Anion Gap 7.0 L Glucose Total Protein 5.8 L Triglycerides 165 H 07/27/20 07/27/20 04:40 04:40 WBC 11.3 H MPV 11.4 H Seg Neutrophils % 91 H Lymphocytes % 5 L Chloride 110 H Carbon Dioxide 19 L Anion Gap Glucose 147 H Total Protein Triglycerides Meds: Medications Acetaminophen (Tylenol) 650 mg PO Q4-6HP PRN; Protocol PRN Reason: Per Pain Protocol/Fever > 101 Albuterol/Ipratropium (Duoneb) 3 ml NEB Q4HP PRN PRN Reason: Shortness Of Breath Last Admin: 07/27/20 20:48 Dose: 3 ml Documented by: Bisacodyl (Dulcolax) 10 mg [place] Q2-3DAYS PRN PRN Reason: Constipation Budesonide (Pulmicort) 0.5 mg NEB Q12 [facility] Last Admin: 07/29/20 08:33 Dose: 0.5 mg Documented by: Docusate Sodium (Colace) 100 mg PO BID [facility] Last Admin: 07/29/20 09:06 Dose: 100 mg Documented by: Heparin Sodium (Porcine) (Heparin) 5,000 unit SQ Q12 [facility] Last Admin: 07/29/20 09:06 Dose: 5,000 unit Documented by: Hydromorphone HCl (Dilaudid) 0.25 - 0.5 mg IV Q4HP PRN; Protocol PRN Reason: Per Pain Protocol Acetaminophen (Ofirmev) 650 mg in 65 mls @ 130 mls/hr IV Q6HP PRN; Protocol PRN Reason: Per Pain Protocol/Fever > 101 Magnesium Sulfate (Magnesium Sulfate) 2 gm in 50 mls @ 50 mls/hr IV UD PRN PRN Reason: MG = or < 1.7 Levofloxacin (Levaquin) 750 mg in 150 mls @ 100 mls/hr IV Q24H [facility]; Protocol Last Admin: 07/29/20 09:07 Dose: 100 mls/hr Documented by: Iron Carb/Multivit/[place]/Folic Acid (Multivitamin W/Minerals) 1 tab PO DAILY [facility] Last Admin: 07/29/20 09:06 Dose: 1 tab Documented by: Melatonin (Melatonin 3mg Tablet) 3 mg PO HSP PRN PRN Reason: Insomnia Metoprolol Tartrate (Lopressor) 5 mg IV Q5M PRN PRN Reason: Heart Rate > 140 bpm Montelukast Sodium (Singular) 10 mg PO HS [facility] Last Admin: 07/28/20 23:07 Dose: 10 mg Documented by: Nicotine (Nicoderm) 7 mg TOPICAL DAILY@1000 [facility] Last Admin: 07/29/20 09:07 Dose: 7 mg Documented by: Ondansetron HCl (Zofran Odt) 4 mg SL Q4-6HP PRN; Protocol PRN Reason: Nausea And Vomiting Ondansetron HCl (Zofran) 4 mg IV Q4-6HP PRN; Protocol PRN Reason: Nausea And Vomiting Polyethylene Glycol (Miralax) 17 gm PO DAILYP PRN PRN Reason: Constipation Last Admin: 07/28/20 11:11 Dose: 17 gm Documented by: Potassium Chloride (Klor-Con) 40 meq PO DAILYP PRN PRN Reason: K+ < 3.5 Prednisone (Prednisone) 10 mg PO [facility] Senna/Docusate Sodium (Senna Plus Tablet) 1 tab PO HS [facility] Last Admin: 07/28/20 23:08 Dose: 1 tab Documented by: Sodium Chloride (Saline Flush) 10 ml IV Q8 [facility] Last Admin: 07/29/20 12:57 Dose: 10 ml Documented by: A/P Narrative A/P Narrative: 1. acute hypoxic respiratory failure -continue pulse ox. She is now on 0.5 to 1 L oxygen. Trying to wean off. She is not on home oxygen. 2. Acute exacerbation of COPD. Continued improvement noted on bronchodilators/steroids/supplemental oxygen. Continue pulmonary toilet. Decreased prednisone to 10 mg daily from 40 mg daily 3. Interstitial fibrosis on chest imaging. 4. Tobacco dependence-counseled for cessation nicotine patch. 5. Full code 6. Prophylaxis heparin Plan Continue steroid and bronchodilators Wean oxygen as tolerated to maintain sats around 90% PT OT nutrition support Discharge planning likely in 24 hours pending clinical improvement Time Spent With Patient Time: Total time spent is greater than 50% in coordination of care (as documented) at patient's floor/unit and/or counseling patient: QUALITY VTE Deep Vein Thrombosis/Pulmonary Embolism Present on Admission: No
[2020-07-29] MEDS: IPRATROPIUM/ALBUTEROL 3 ML AMPUL.NEB NEB PRN (21:06)
[2020-07-29] MEDS: SENNOSIDES/DOCUSATE SODIUM 1 TAB TABLET PO SCH (22:07)
[2020-07-29] MEDS: MONTELUKAST 10 MG TABLET PO SCH (22:07)
[2020-07-30] MEDS: 0.9 % SODIUM CHLORIDE 10 ML SYRINGE IV SCH (05:22)
[2020-07-30] MEDS ORDERED: predniSONE 5 MG TABLET PO SCH (08:00)
[2020-07-30] MEDS: DOCUSATE SODIUM 100 MG CAPSULE PO SCH (08:02)
[2020-07-30] MEDS: MULTIVIT,THER IRON,CA,FA & MIN 1 TABLET PO SCH (08:02)
[2020-07-30] MEDS: HEPARIN 5,000 UNIT/ML VIAL SQ SCH (08:03)
[2020-07-30] MEDS: LEVOFLOXACIN 750 MG/150 ML BAG IV SCH (08:11)
[2020-07-30 08:27] LABS: ALT/SGPT 15 U/l (0-40); AST/SGOT 15 U/l (0-37); Albumin 3.8 gm/dL (3.2-5.2); Albumin/Globulin Ratio 1.5 (1.0-2.3); Alkaline Phosphatase 80 U/L (39-117); Bilirubin,Direct < 0.2 mg/dL (0.0-0.3); Bilirubin,Total 0.3 mg/dL (0.0-1.0); Blood Urea Nitrogen 13 mg/dl (8-23); Calcium 9.3 mg/dl (8.6-10.4); Carbon Dioxide 28 mmol/L (22-30); Chloride 103 mmol/L (96-108); Globulin 2.6 gm/dL (2.2-3.7); Glomerular Filtration Rate 67; Glucose 85 mg/dL (70-105); Hematocrit 41.1 % (34.1-44.9); Hemoglobin 13.8 g/dL (11.2-15.7); Lactate Dehydrogenase 180 U/L (94-250); Mean Cell Volume 95.4 fL (80.0-100.0); Mean Corpuscular HGB Conc 33.6 g/dL (31.0-36.0); Mean Platelet Volume 11.5 fL (7.4-10.4); Platelet Count 266 K/mcL (140-440); RBC 4.31 M/mcL (3.59-5.38); Triglycerides 170 mg/dl (<150); Uric Acid 4.1 mg/dL (2.5-8.0); WBC 10.1 K/mcL (4.50-11.00)
[2020-07-30] MEDS: BUDESONIDE 0.5 MG/2 ML AMPUL.NEB NEB SCH (08:45)
[2020-07-30 09:44] LABS: Eosinophils % (Manual) 3 % (0-7); Lymphocytes % 36 % (15-49); Monocytes % (Manual) 8 % (1-12); Myelocytes % 1 % (0-0); Platelet Estimate NORMAL (NORMAL); RBC Morphology NORMAL (NORMAL); Segmented Neutrophils % 52 % (38-78)
[2020-07-30] MEDS: NICOTINE 7 MG PATCH TOPICAL SCH (10:05)
--- NOTE | 2020-07-30 10:15 | Discharge Summary ---
Discharge Provider Provider Patient information: Note initiated : 07/30/20 at 10:10 am Service Date, if different from initiated Date: [] Patient: Nuzhat Donis 64 y/o F admitted on 07/26/20 for SOB . Chief Complaint: [] Date of admission: 07/26/20 09:09 Discharge date: 07/30/20 Consults: 07/27/20 07:14 Consult to Physician [CONS] Routine Comment: Consulting Provider: Boy Murphy Reason For Exam: Physician to Consult Discharge Meds Discharge Medications Home Medications albuterol sulfate 1 - 2 puff IH Q4H PRN #1 [email or web address] 09/27/19 [Rx Confirmed 07/26/20 Last Taken 12/18/19] fluticasone propionate 2 puff INH BID #1 inhaler 12/18/19 [Rx Confirmed 07/26/20 Last Taken Unknown] montelukast 10 mg PO QHS 07/26/20 [History Confirmed 07/26/20 Last Taken Unknown] metoprolol tartrate 5 mg IV Q5M PRN #30 ml 07/30/20 [Rx Last Taken Unknown] tiotropium-olodaterol 2 puff INHALATION QDAY #4 g 07/30/20 [Rx Last Taken Unknown] COURSE Hospital Course Hospital course: 1. acute hypoxic respiratory failure -continue pulse ox. She is now on RM with good oxygen sat. She is not on home oxygen. 2. Acute exacerbation of COPD. Continued improvement noted on bronchodilators/steroids/supplemental oxygen. Continue pulmonary toilet. Decreased prednisone to 10 mg daily from 40 mg daily. will discontinue it today. 3. Interstitial fibrosis on chest imaging. 4. Tobacco dependence-counseled for cessation nicotine patch. Interval history: Ms. Donis is a 64 year old F with a history of COPD/active smoking who presents to the ER with acute onset shortness of breath since last evening. 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 She felt an abrupt onset of shortness of breath. She was unable to breathe and presents to the ER. She denies prior similar episodes however she has known COPD and continues to smoke half to three-quarter pack a day. She denies exposure to sick contacts, fever, sore throat, loss of taste or sme ll, myalgias, chest pain or headache. Initial work-up in the ER was consistent with COPD exacerbation/chest imaging consistent with pneumonia. Patient was started on antibiotics along with bronchodilators. Cultures were drawn. Subsequently hospitalist service was consulted. Patient was markedly tachypneic and tachycardic on arrival requiring 3 L oxygen to maintain sats. COVID-19 test pending. At the time of my evaluation patient is able to talk in full sentences however she is sitting in bed appears minimally labored but says she has improved since arrival. 07/27 patient doing remarkably well. White count 11.3 on Solu-Medrol. Clinically improved now on 2 L oxygen. Continue antibiotic coverage for pneumonia. Feels a lot better. Stable hemodynamics. COVID negative. Transfer to medical floor. Wean oxygen as tolerated. Continue bronchodilators. Smoking cessation counseling performed. 07/28-patient doing well. Persistent cough. On oral prednisone/bronchodilators. White count 14.1. Interval chest imaging hyperinflated lung. Continue pulmonary toilet/bronchodilators. Counseled for smoking cessation. 07/29 Patient still has mild shortness of breath but generally speaking she feels fine. Denies nausea, vomiting, fever, or chills. WBC 8.1 today, 14.1 yesterday. Oxygen saturation is fine on 0.5 to 1.5 L. I discussed with her about smoking cessation. 07/30 Patient does not have any complaints today. Deidre signs are stable. She is now on room air with good oxygen saturation. She will be discharged home to follow with PCP and hyster machine operator. Call PCP for medical issues. Discharge diagnosis: acute hypoxic respiratory failure, exacerbation of COPD Time Spent with Patient Time attestation: Total time spent providing and/or coordinating discharge services: EXAM Constitutional Vitals: Temp Pulse Resp BP Pulse Ox 97.9 F 77 18 112/70 94 07/30/20 07:58 07/30/20 08:47 07/30/20 08:47 07/30/20 07:58 07/30/20 07:58 Additional findings Additional findings: General - No acute distress Eyes - PERRLA, EOM intact ENT no rhinorrhea, no noticeable or palpable swelling, no redness or rash around throat or on face Neck supple, no JVD, no thyromegaly Respiratory: Lungs - diminshed BS, no use of accessary muscles. Cardiovascular - RRR no m/r/g, GI - Normal bowel sounds, no distended, soft. Extremeties - No edema, cyanosis or clubbing Hemo/lymphatic/immune no lymphadenopathy Neurological Alert and oriented x 3, no focal neurological deficits. Psychiatry flat affect Discharge Data Data Completed and Pending Labs on day of discharge: Labs from last 24 hours 07/30/20 07/30/20 07/29/20 06:02 06:02 06:00 WBC 10.1 RBC 4.31 Hgb 13.8 Hct 41.1 MCV 95.4 MCH 32.0 MCHC 33.6 RDW 12.0 Plt Count 266 MPV 11.5 H Total Counted 100 100 Seg Neutrophils % 52 56 Band Neutrophils % Not Reportable Lymphocytes % 36 31 Monocytes % (Manual) 8 9 Eosinophils % (Manual) 3 4 Myelocytes % 1 H Platelet Estimate Normal Normal RBC Morphology Normal Normal Sodium 142 Potassium 3.8 Chloride 103 Carbon Dioxide 28 Anion Gap 11.0 BUN 13 Creatinine 0.9 GFR Calculation 67 Glucose 85 Uric Acid 4.1 Calcium 9.3 Phosphorus 4.0 Magnesium 2.1 Total Bilirubin 0.3 Direct Bilirubin < 0.2 GGT 12 AST 15 ALT 15 Alkaline Phosphatase 80 Lactate Dehydrogenase 180 Total Protein 6.4 Albumin 3.8 Globulin 2.6 Albumin/Globulin Ratio 1.5 Triglycerides 170 H Discharge Plan Patient/Caregiver Discharge Instructions Activity: increase activity as tolerated Prescriptions: New metoprolol tartrate 5 mg/5 mL Solution 5 mg IV Q5M PRN (Reason: Heart Rate > 140 bpm) Qty: 30 RF: 0 tiotropium-olodaterol 2.5-2.5 mcg/actuation mist 2 puff INHALATION QDAY Qty: 4 RF: 0 Continued albuterol sulfate 8.5 GM HFA aerosol inhaler 1 - 2 puff IH Q4H PRN (Reason: Wheezing) Qty: 1 RF: 0 fluticasone propionate 1 PUFF inhaler 2 puff INH BID Qty: 1 RF: 0 montelukast 10 mg Tablet 10 mg PO QHS RF: 0 Discontinued nicotine 7 mg/24 hr Patch 24 Hour 1 patch TRANSDERMAL DAILY RF: 0 Follow Up Plan Follow up with: No,PCP [Referring] - (PCP) Unknown [Outside] (f/u with PCP in 3 days and hyster machine operator in one week or sooner. ) Patient Disposition: Home, Self-Care Prognosis: Fair Discharge Orders: Discharge Order (Routine); Ordered 07/30/20 Ordered By: Soo SORIANO VTE Deep Vein Thrombosis/Pulmonary Embolism Present on Admission: No
== END 2020-07-30 11:32 | disposition home or self-care (01) | DRG 189 ==
LOC: ED 01:47 → ICU 01:47 → OBSVTOIN 09:09 → ICU 09:20 → MEDSUR 07-27 10:15
PROVIDERS: ADMIT Internal Medicine; ATTEND Internal Medicine

== ENCOUNTER 2020-08-05 06:31 | Inpatient (IN) ==
[2020-08-05] MEDS ORDERED: IPRATROPIUM/ALBUTEROL 3 ML AMPUL.NEB NEB ONE ×2 (06:37→06:51)
[2020-08-05] MEDS ORDERED: methylPREDNISolone SOD SUCC 125 MG/2 ML VIAL IV ONE (07:02)
[2020-08-05] MEDS ORDERED: 0.9 % SODIUM CHLORIDE 500 ML IV ONE (07:02)
--- NOTE | 2020-08-05 07:13 | Emergency Department Note ---
SOB HPI General Chief Complaint: Shortness of Breath/Dyspnea Stated Complaint: shortness of breath Time Seen by Provider: 08/05/20 06:37 Mode of arrival: ambulatory Limitations: physical limitation History of Present Illness HPI Narrative: Narrative: This pleasant 64-year-old awoke this morning with acute shortness of breath and her heart beating fast. She tried a nebulizer at home without relief and came to the emergency room accompanied by her son because of the severity and difficulty. 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 She had her mask on plus she had a face shield. She did have exposure to to the cleaning agents in the bathroom by simply participating there with them. Residential through her shift she had to go home and get another nebulizer treatment. She does not use oxygen at home. She was recently admitted on the and discharged on the for a COPD exace rbation. She did not need any oxygen at the time of discharge nor was she placed on any antibiotic and her steroid burst had finished on that day. She was sent home on a new MDI, tiotropium-olodaterol 2 puffs daily. This was about a $500 inhaler. She does not have oximetry at home. She did feel panicky upon awakening. Last time she had steroids was December of this year and then before that was September of last year. \ Related Data Home Medications Medication Instructions Recorded Confirmed montelukast 10 mg PO QHS 07/26/20 08/05/20 Previous Rx's Medication Instructions Recorded albuterol sulfate 1 - 2 puff IH Q4H PRN #1 hfa.aer.ad 09/27/19 fluticasone propionate 2 puff INH BID #1 inhaler 12/18/19 tiotropium-olodaterol 2 puff INHALATION QDAY #4 g 07/30/20 Allergies Allergy/AdvReac Type Severity Reaction Status Date / Time shrimp Allergy Severe Difficulty Verified 07/26/20 10:29 Breathing lactose Allergy Intermediate Difficulty Verified 07/26/20 10:29 Breathing aspirin AdvReac Mild Gastrointestinal Verified 07/26/20 10:29 Upset Review of Systems ROS ROS Narrative: Narrative: Little sweaty this morning. Had a little chest pain last night. Is producing a little bit of phlegm. Little lightheaded and dizzy this morning. 12 system Review of Systems negative except as mentioned above. PFSH Narrative Patient History Narrative: Narrative: Medical/Surgical/Family History All Active Problems Hypoxia (Acute) Infiltrate of lung present on chest x-ray (Acute) Hypoxia (Acute) COPD exacerbation (Acute) Abnormal chest x-ray (Acute) Exercise hypoxemia (Acute) Cigarette smoker (Chronic) Medical History (Updated 08/05/20 @ 09:26 by Boy Murphy DO) Abnormal chest x-ray (Acute) Cigarette smoker (Chronic) 2-3 per day (07-25-2020) COPD exacerbation (Acute) Exercise hypoxemia (Acute) Pleural effusion (Resolved) Surgical History (Updated 07/26/20 @ 09:26 by Boy Murphy DO) History of tonsillectomy (Acute) History of tubal ligation (Acute) Social History Smoking Status: Current every day smoker Alcohol Intake Frequency: 0-2 drinks per day (1 drink of vodka per night; weekends sometimes 2 (08/05/2020)) Substance Use: former substance user Exam Narrative Narrative: Narrative: General Limitations: physical limitation General appearance: Present alert, in no apparent distress (Except for extra efforts to breathe.) and nontoxic Head Head: Present atraumatic and normocephalic Eye Eye: Present normal appearance, PERRL and EOMI ENT ENT: Present mucous membranes dry (Some mildly caked on moist white mucus in various areas with a little bit of stringiness.) Neck Neck: Present trachea midline; Absent lymphadenopathy and thyromegaly Chest Chest: Present symmetric chest wall rise Respiratory Respiratory: Present wheezes (Externally audible sounds like wheezes but with auscultation almost disappeared.), accessory muscle use and decreased breath sounds; Absent respiratory distress, rales/crackles, stridor and prolonged expiratory phase Cardiovascular Cardiovascular: Present regular rate and normal rhythm; Absent tachycardia, systolic murmur and diastolic murmur Adbominal Abdominal: Present soft; Absent distention, tenderness, guarding, rebound, rigidity, organomegaly and mass Extremities Extremities: Absent pedal edema, pretibial edema, calf tenderness and cyanosis Back Back: Absent CVA tenderness (R), CVA tenderness (L) and spinous process ten derness Neurological Neurological: Present alert and oriented X3 Psychiatric Psychiatric: Present normal affect, polite and pleasant; Absent depressed, agitated, anxious and poor eye contact Skin Skin: Present warm (WNL) and dry; Absent cyanosis and pallor Course Vital Signs Vital signs: Vital Signs Temperature 98.1 F 08/05/20 06:33 Pulse Rate 114 H 08/05/20 06:33 Respiratory Rate 38 H 08/05/20 06:33 Blood Pressure 187/103 08/05/20 06:33 Pulse Oximetry (%) 83 L 08/05/20 06:33 Temperature 98.1 F 08/05/20 06:33 Pulse Rate 88 08/05/20 08:46 Respiratory Rate 29 H 08/05/20 09:01 Blood Pressure 120/94 08/05/20 09:01 Pulse Oximetry (%) 98 08/05/20 09:01 MDM MDM Narrative Medical decision making narrative: Narrative: 6:44 AM - interviewed and examined. Appears to be a COPD exacerbation again. Still must repeat work-up. Receiving 1 DuoNeb. Will give a second. Solu- Medrol ordered, 125 mg. 7:20 AM - after second nebulizer still having some significant respiratory effort and saturations 90 to 91%. Her initial oximetry was 83% on arrival. We will give her a heart neb. She has history that she has not had any sick contacts. 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 She says that she is continuing to smoke about 2 cigarettes/day, none yesterday. She does drink about 1 drink of vodka a night. Chest x-ray read as new bibasilar small infiltrates. (These seem to be difficult to visualize). Due to patient's quite significant hypoxia, does not have oxygen at home, had an exacerbating trigger, possible new infiltrates, I think it is reasonable for her to stay in the hospital. Labs include minimally elevated white count at 11.7. Electrolytes fairly unremarkable. She is not particularly acidotic. She is not a CO2 retainer including based on an ABG done 8 or 9 days ago at that admission. Her procalcitonin is negative. Her lactic acid is significantly low. I will discuss with hospitalist. 9:20 AM - I spoke with hospitalist, Dr. Bj Gann, who is willing to accept this patient. Transfer/transition orders prepared. Lab Data Result diagrams: 08/05/20 07:00 08/05/20 07:00 Labs: Lab Results 08/05/20 08/05/20 08/05/20 Range/Units 07:00 07:00 07:00 WBC 11.7 H (4.50-11.00) K/mcL RBC 4.33 (3.59-5.38) M/mcL Hgb 14.0 (11.2-15.7) g/dL Hct 41.1 (34.1-44.9) % MCV 94.9 (80.0-100.0) fL MCH 32.3 (26.0-34.0) pg MCHC 34.1 (31.0-36.0) g/dL RDW 12.0 (11.5-14.5) % Plt Count 297 (140-440) K/mcL MPV 10.7 H (7.4-10.4) fL Gran % 49.0 (38.0-78.0) % Lymph % (Auto) 25.4 (15.5-49.0) % [place] % (Auto) 13.1 H (1.0-12.0) % Eos % (Auto) 11.9 H (0.0-7.0) % Baso % (Auto) 0.6 (0.0-2.0) % Gran # 5.72 (1.80-8.00) K/mcL Lymph # (Auto) 2.96 (1.50-4.80) K/mcL [place] # (Auto) 1.53 H (0.10-0.90) K/mcL Eos # (Auto) 1.39 H (0.00-0.70) K/mcL Baso # (Auto) 0.07 (0.00-0.30) K/mcL VBG Lactic Acid (0.5-2.0) mmol/L Sodium 139 (133-145) mmol/L Potassium 4.0 (3.3-5.1) mmol/L Chloride 105 (96-108) mmol/L Carbon Dioxide 20 L (22-30) mmol/L Anion Gap 14.0 (8-16) BUN 15 (8-23) mg/dl Creatinine 1.0 (0.6-1.1) mg/dl GFR Calculation 59 Glucose 98 (70-105) mg/dL Calcium 9.4 (8.6-10.4) mg/dl Total Bilirubin 0.9 (0.0-1.0) mg/dL AST 18 (0-37) U/l ALT 16 (0-40) U/l Alkaline Phosphatase 108 (39-117) U/L Troponin T < 0.01 (0-0.03) ng/ml Total Protein 7.0 (5.9-8.4) gm/dL Albumin 4.1 (3.2-5.2) gm/dL Globulin 2.9 (2.2-3.7) gm/dL Albumin/Globulin Ratio 1.4 (1.0-2.3) Procalcitonin (<0.10) ng/mL 08/05/20 08/05/20 Range/Units 07:00 07:15 WBC (4.50-11.00) K/mcL RBC (3.59-5.38) M/mcL Hgb (11.2-15.7) g/dL Hct (34.1-44.9) % MCV (80.0-100.0) fL MCH (26.0-34.0) pg MCHC (31.0-36.0) g/dL RDW (11.5-14.5) % Plt Count (140-440) K/mcL MPV (7.4-10.4) fL Gran % (38.0-78.0) % Lymph % (Auto) (15.5-49.0) % [place] % (Auto) (1.0-12.0) % Eos % (Auto) (0.0-7.0) % Baso % (Auto) (0.0-2.0) % Gran # (1.80-8.00) K/mcL Lymph # (Auto) (1.50-4.80) K/mcL [place] # (Auto) (0.10-0.90) K/mcL Eos # (Auto) (0.00-0.70) K/mcL Baso # (Auto) (0.00-0.30) K/mcL VBG Lactic Acid 0.9 (0.5-2.0) mmol/L Sodium (133-145) mmol/L Potassium (3.3-5.1) mmol/L Chloride (96-108) mmol/L Carbon Dioxide (22-30) mmol/L Anion Gap (8-16) BUN (8-23) mg/dl Creatinine (0.6-1.1) mg/dl GFR Calculation Glucose (70-105) mg/dL Calcium (8.6-10.4) mg/dl Total Bilirubin (0.0-1.0) mg/dL AST (0-37) U/l ALT (0-40) U/l Alkaline Phosphatase (39-117) U/L Troponin T (0-0.03) ng/ml Total Protein (5.9-8.4) gm/dL Albumin (3.2-5.2) gm/dL Globulin (2.2-3.7) gm/dL Albumin/Globulin Ratio (1.0-2.3) Procalcitonin 0.07 (<0.10) ng/mL Discharge Plan Patient/Caregiver Discharge Instructions Pt seen by SALES AND OPERATIONS TRAINEE/PA only: No Clinical Impression: COPD exacerbation, Infiltrate of lung present on chest x-ray, Hypoxia Patient Disposition: Xfer As Inpt ([facility]) Condition: Fair Prescriptions: No Action albuterol sulfate 8.5 GM HFA aerosol inhaler 1 - 2 puff IH Q4H PRN (Reason: Wheezing) Qty: 1 RF: 0 fluticasone propionate 1 PUFF inhaler 2 puff INH BID Qty: 1 RF: 0 montelukast 10 mg Tablet 10 mg PO QHS RF: 0 tiotropium-olodaterol 2.5-2.5 mcg/actuation mist 2 puff INHALATION QDAY Qty: 4 RF: 0
[2020-08-05] MEDS ORDERED: ALBUTEROL SULFATE 5 MG/ML NEB SOLUTION BOTTLE NEB ONE (07:28)
--- NOTE | 2020-08-05 08:08 | XRay Report ---
CLINICAL INFORMATION: dyspnea COMPARISON: 07/28/2020 FINDINGS: Heart size, mediastinum and pulmonary vessels are normal. COPD changes noted. No infiltrates have developed in the lung bases. Small right pleural effusion noted IMPRESSION: Small bibasilar infiltrates. Interpreted and Authenticated by: Colin Evans 08/05/20
[2020-08-05 08:21] LABS: ALT/SGPT 16 U/l (0-40); AST/SGOT 18 U/l (0-37); Albumin 4.1 gm/dL (3.2-5.2); Albumin/Globulin Ratio 1.4 (1.0-2.3); Alkaline Phosphatase 108 U/L (39-117); Bilirubin,Total 0.9 mg/dL (0.0-1.0); Blood Urea Nitrogen 15 mg/dl (8-23); Calcium 9.4 mg/dl (8.6-10.4); Chloride 105 mmol/L (96-108); Globulin 2.9 gm/dL (2.2-3.7); Glomerular Filtration Rate 59; Glucose 98 mg/dL (70-105)
[2020-08-05 08:22] LABS: Carbon Dioxide 20 mmol/L (22-30)
[2020-08-05 08:23] LABS: Basophils # (Auto) 0.07 K/mcL (0.00-0.30); Basophils % (Auto) 0.6 % (0.0-2.0); Eosinophils # (Auto) 1.39 K/mcL (0.00-0.70); Eosinophils % (Auto) 11.9 % (0.0-7.0); Hematocrit 41.1 % (34.1-44.9); Lymphocytes # (Auto) 2.96 K/mcL (1.50-4.80); Lymphocytes % (Auto) 25.4 % (15.5-49.0); Mean Cell Volume 94.9 fL (80.0-100.0); Mean Corpuscular HGB Conc 34.1 g/dL (31.0-36.0); Mean Platelet Volume 10.7 fL (7.4-10.4); Monocytes # (Auto) 1.53 K/mcL (0.10-0.90); Monocytes % (Auto) 13.1 % (1.0-12.0); Platelet Count 297 K/mcL (140-440); RBC 4.33 M/mcL (3.59-5.38); WBC 11.7 K/mcL (4.50-11.00)
[2020-08-05] MEDS ORDERED: AZITHROMYCIN 500 MG in DEXTROSE 5% IN WATER 250 ML IV ONE (09:21)
--- NOTE | 2020-08-05 10:23 | Internal Med History&Physical ---
HPI History of Present Illness Patient information: Note initiated : 08/05/20 at 10:18 am Service Date, if different from initiated Date: [] Patient: Nuzhat Donis 64 y/o F admitted on 08/05/20 for shortness of breath. Chief Complaint: [] History of present illness: Ms. Donis is a 64 year old F Presents the ED with shortness of breath. 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 She went back to work in June and has been working for the past 3 weeks or so. Obviously there is been more stringent cleaning practices. She was h ospitalized here over a week ago for COPD exacerbation went home on room air and was doing well. Went back to work for the first time on Friday and started her shift okay but then skilled nursing through became short of breath and needed to go use a nebulizer treatment so she went home and came back and by the end of the shift she was more short of breath. At that night she took her breathing treatments including her nebulizer and went to bed and in the morning she was even more short of breath and her heart was pounding. She denies fever chills. She has a productive cough which is green which is been that way since she was hospitalized last week. In the ED she had a room air sat of 83%. She has never seen a sewing machine operator read official pulmonary function testing done. She received multiple breathing treatments including heart nebs in the ED with improvement. Still on supplemental oxygen. Review of Systems: Pertinent positives as above. Denies headache/fever/chills/nausea/vomiting/ches t or abdominal pain/diarrhea. Remaining 10 point review of system reviewed negative PFSH PFSH All Active Problems Hypoxia (Acute) Infiltrate of lung present on chest x-ray (Acute) Hypoxia (Acute) COPD exacerbation (Acute) Abnormal chest x-ray (Acute) Exercise hypoxemia (Acute) Cigarette smoker (Chronic) Medical History (Updated 08/05/20 @ 09:26 by Boy Murphy DO) Abnormal chest x-ray (Acute) Cigarette smoker (Chronic) 2-3 per day (07-25-2020) COPD exacerbation (Acute) Exercise hypoxemia (Acute) Pleural effusion (Resolved) Surgical History (Updated 09/16/20 @ 09:26 by Boy Murphy DO) History of tonsillectomy (Acute) History of tubal ligation (Acute) Social History (Updated 09/30/19 @ 14:54 by EDUIN Ruby) smoking status: Current every day smoker tobacco type: cigarettes per day: 10 alcohol intake frequency: 0-2 drinks per day (1 drink of vodka per night; weekends sometimes 2 (08/05/2020)) substance use type: former substance user MEDS/ALLERGIES Home Medications and Allergies Home Medications Medication Instructions Recorded Confirmed Type albuterol sulfate 1 - 2 puff IH Q4H PRN #1 hfa.aer.ad 09/27/19 08/05/20 Rx fluticasone propionate 2 puff INH BID #1 inhaler 12/18/19 08/05/20 Rx montelukast 10 mg PO QHS 07/26/20 08/05/20 History tiotropium-olodaterol 2 puff INHALATION QDAY #4 g 07/30/20 08/05/20 Rx Allergies Allergy/AdvReac Type Severity Reaction Status Date / Time shrimp Allergy Severe Difficulty Verified 07/26/20 10:29 Breathing lactose Allergy Intermediate Difficulty Verified 07/26/20 10:29 Breathing aspirin AdvReac Mild Gastrointestinal Verified 07/26/20 10:29 Upset EXAM Constitutional Vitals: Temp Pulse Resp BP Pulse Ox 98.1 F 88 26 H 117/70 91 08/05/20 10:04 08/05/20 10:04 08/05/20 10:04 08/05/20 10:04 08/05/20 10:04 Exam: General: Alert, Awake, No acute Distress Eyes/N/T: EOMI, PERRL, Head/Neck: neck supple, normocephalic atraumatic CV: RRR, No murmurs, normal s1/s2 Pulm: mildly diminished, no wheezing currently, prolonged expiratory phase abd: soft, nontender, +BS x4 Ext: no clubbing/cyanosis/edema Neuro: Alert, no focal deficits, moves all extremities, CN 2-12 grossly intact, symmetrical strength b/l upper/lower, sensations intact b/l upper/lower Skin: warm/dry DATA Data Completed and Pending Labs: Labs from last 24 hours 09/26/20 09/26/20 09/26/20 09:45 07:15 07:00 WBC RBC Hgb Hct MCV MCH MCHC RDW Plt Count MPV Gran % Lymph % (Auto) [place] % (Auto) Eos % (Auto) Baso % (Auto) Gran # Lymph # (Auto) [place] # (Auto) Eos # (Auto) Baso # (Auto) VBG Lactic Acid 0.9 Sodium Potassium Chloride Carbon Dioxide Anion Gap BUN Creatinine GFR Calculation Glucose Calcium Total Bilirubin AST ALT Alkaline Phosphatase Troponin T Total Protein Albumin Globulin Albumin/Globulin Ratio Procalcitonin 0.07 Urine Color Pending Urine Appearance Pending Urine pH Pending Ur Specific Brady Pending Urine Protein Pending Urine Glucose (UA) Pending Urine Ketones Pending Urine Occult Blood Pending Urine Nitrate Pending Urine Bilirubin Pending Urine Urobilinogen Pending Ur Leukocyte Esterase Pending 08/05/20 08/05/20 08/05/20 07:00 07:00 07:00 WBC 11.7 H RBC 4.33 Hgb 14.0 Hct 41.1 MCV 94.9 MCH 32.3 MCHC 34.1 RDW 12.0 Plt Count 297 MPV 10.7 H Gran % 49.0 Lymph % (Auto) 25.4 [place] % (Auto) 13.1 H Eos % (Auto) 11.9 H Baso % (Auto) 0.6 Gran # 5.72 Lymph # (Auto) 2.96 [place] # (Auto) 1.53 H Eos # (Auto) 1.39 H Baso # (Auto) 0.07 VBG Lactic Acid Sodium 139 Potassium 4.0 Chloride 105 Carbon Dioxide 20 L Anion Gap 14.0 BUN 15 Creatinine 1.0 GFR Calculation 59 Glucose 98 Calcium 9.4 Total Bilirubin 0.9 AST 18 ALT 16 Alkaline Phosphatase 108 Troponin T < 0.01 Total Protein 7.0 Albumin 4.1 Globulin 2.9 Albumin/Globulin Ratio 1.4 Procalcitonin Urine Color Urine Appearance Urine pH Ur Specific Brady Urine Protein Urine Glucose (UA) Urine Ketones Urine Occult Blood Urine Nitrate Urine Bilirubin Urine Urobilinogen Ur Leukocyte Esterase A/P Narrative A/P Narrative: A: *AECOPD(not on home O2): likely related to cleaning products *Acute hypoxic respiratory failure: *Tobacco abuse: * P: -Steroids (wean), nebs/prn -IS/acapella -empiric azithromycin -RVP pending -Nicotine patch, smoking cessation counseling - -ppx: Lovenox full code Time Spent With Patient Time: Total time spent is greater than 50% in coordination of care (as documented) at patient's floor/unit and/or counseling patient:
[2020-08-05] MEDS ORDERED: SENNOSIDES 1 TABLET PO PRN (10:24)
[2020-08-05] MEDS ORDERED: POTASSIUM CHLORIDE 20 MEQ TABLET PO PRN ×2 (10:24)
[2020-08-05] MEDS ORDERED: IPRATROPIUM/ALBUTEROL 3 ML AMPUL.NEB NEB PRN (10:24)
[2020-08-05] MEDS ORDERED: MAGNESIUM SULFATE 2 GM/50 ML BAG IV PRN (10:24)
[2020-08-05] MEDS ORDERED: POTASSIUM CHLORIDE 40 MEQ in DEXTROSE 5% IN WATER 500 ML IV PRN (10:24)
[2020-08-05] MEDS ORDERED: ONDANSETRON 4 MG/2 ML VIAL IV PRN (10:24)
[2020-08-05] MEDS ORDERED: ACETAMINOPHEN 325 MG TABLET PO PRN (10:24)
[2020-08-05] MEDS ORDERED: POLYETHYLENE GLYCOL 3350 17 GM PACKET PO PRN (10:24)
[2020-08-05 10:49] LABS: Appearance,Urine CLEAR; Bilirubin,Urine NEG (NEG); Color,Urine YELLOW; Culture Indicated,Urine NO; Glucose,Urine (UA) NEGATIVE (NEG); Ketones,Urine 20 mg/dL (NEG); Leukocyte Esterase,Urine NEG /uL (NEG); Nitrate,Urine NEG (NEG); Protein,Urine NEG (NEG); Specific Gravity,Urine 1.023 (1.000-1.035); Urine Blood NEG mg/dL (<0.03); Urobilinogen,Urine NEG (NEG)
[2020-08-05] MEDS: NICOTINE 7 MG PATCH TOPICAL SCH (12:25)
[2020-08-05] MEDS: IPRATROPIUM/ALBUTEROL 3 ML AMPUL.NEB NEB SCH ×2 (13:11→19:29)
[2020-08-05] MEDS: methylPREDNISolone SOD SUCC 125 MG/2 ML VIAL IV SCH ×2 (13:40→23:05)
[2020-08-05] MEDS: 0.9 % SODIUM CHLORIDE 10 ML SYRINGE IV SCH ×2 (13:41→23:05)
[2020-08-05] MEDS ORDERED: 0.9 % SODIUM CHLORIDE 10 ML SYRINGE IV SCH (14:00)
[2020-08-06] MEDS: methylPREDNISolone SOD SUCC 125 MG/2 ML VIAL IV SCH (05:31)
[2020-08-06] MEDS: 0.9 % SODIUM CHLORIDE 10 ML SYRINGE IV SCH ×3 (05:34→23:05)
[2020-08-06 06:16] LABS: Basophils # (Auto) 0.02 K/mcL (0.00-0.30); Basophils % (Auto) 0.2 % (0.0-2.0); Eosinophils # (Auto) 0 K/mcL (0.00-0.70); Eosinophils % (Auto) 0 % (0.0-7.0); Hematocrit 36.8 % (34.1-44.9); Hemoglobin 12.2 g/dL (11.2-15.7); Lymphocytes # (Auto) 1.11 K/mcL (1.50-4.80); Lymphocytes % (Auto) 8.6 % (15.5-49.0); Mean Cell Volume 95.6 fL (80.0-100.0); Mean Corpuscular HGB Conc 33.2 g/dL (31.0-36.0); Mean Platelet Volume 10.6 fL (7.4-10.4); Monocytes # (Auto) 0.29 K/mcL (0.10-0.90); Monocytes % (Auto) 2.2 % (1.0-12.0); Platelet Count 255 K/mcL (140-440); RBC 3.85 M/mcL (3.59-5.38); WBC 12.9 K/mcL (4.50-11.00)
[2020-08-06] MEDS: IPRATROPIUM/ALBUTEROL 3 ML AMPUL.NEB NEB SCH ×4 (06:18→19:08)
[2020-08-06 06:23] LABS: ALT/SGPT 13 U/l (0-40); AST/SGOT 13 U/l (0-37); Albumin 3.6 gm/dL (3.2-5.2); Albumin/Globulin Ratio 1.2 (1.0-2.3); Alkaline Phosphatase 99 U/L (39-117); Bilirubin,Direct < 0.2 mg/dL (0.0-0.3); Bilirubin,Total 0.3 mg/dL (0.0-1.0); Blood Urea Nitrogen 12 mg/dl (8-23); Calcium 8.9 mg/dl (8.6-10.4); Carbon Dioxide 19 mmol/L (22-30); Globulin 2.9 gm/dL (2.2-3.7); Glomerular Filtration Rate 77; Glucose 180 mg/dL (70-105); Lactate Dehydrogenase 180 U/L (94-250); Phosphorous 3.5 mg/dL (2.7-4.5); Triglycerides 46 mg/dl (<150); Uric Acid 3.8 mg/dL (2.5-8.0)
[2020-08-06 06:27] LABS: Chloride 109 mmol/L (96-108)
--- NOTE | 2020-08-06 08:17 | Internal Med Progress Note ---
SUBJECTIVE Subjective Patient information: Note initiated : 08/06/20 at 8:13 am Service Date, if different from initiated Date: [] Patient: Nuzhat Donis 64 y/o F admitted on 08/05/20 for shortness of breath. Chief Complaint: [] Interval history: History of present illness: Ms. Donis is a 64 year old F Presents the ED with shortness of breath. 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 She went back to work in June and has been working for the past 3 weeks or so. Obviously there is been more stringent cleaning practices. She was hospitalized here over a week ago for COPD exacerbation went home on room air and was doing well. Went back to work for the first time on Friday and started her shift okay but then custodial through became short of breath and needed to go use a nebulizer treatment so she went home and came back and by the end of the shift she was more short of breath. At that night she took her breathing pablo atments including her nebulizer and went to bed and in the morning she was even more short of breath and her heart was pounding. She denies fever chills. She has a productive cough which is green which is been that way since she was hospitalized last week. In the ED she had a room air sat of 83%. She has never seen a emergency department rn read official pulmonary function testing done. She received multiple breathing treatments including heart nebs in the ED with improvement. Still on supplemental oxygen. 08/06 States she is feeling a lot better. And breathing is improving but still labored at times. Has cough. Review of Systems: denies headache/fever/chills/nausea/vomiting/chest or abdominal pain/diarrhea. Otherwise see above. Constitutional Vitals: Vital Signs Temp Pulse Resp BP Pulse Ox 97.8 F 90 20 124/66 94 08/06/20 07:51 08/06/20 07:51 08/06/20 07:51 08/06/20 07:51 08/06/20 07:51 Period Temp Pulse Resp BP Sys/Gorman Pulse Ox Last 24 Hr 97.3 F-98.8 F 80-93 18-29 100-130/61-94 91-98 Intake and Output 08/05/20 08/06/20 08/06/20 21:59 05:59 13:59 Intake Total 360 480 Output Total 1250 1300 Balance -890 -820 Weight 51.256 kg Intake & Output: Intake & Output 08/05/20 08/06/20 08/06/20 21:59 05:59 13:59 Intake Total 360 480 Output Total 1250 1300 Balance -890 -820 Weight 51.256 kg Intake: Oral 360 480 Output: Void Amount 1250 1300 Other: Meal Dinner Percent of Meal Consumed 50% Feeding Ability Assist with Tray Set Up Urine Appearance Clear Clear Urine Color Bright Yellow Bright Yellow Urine Odor Normal Normal Exam: General: Alert, Awake, No acute Distress Eyes/N/T: EOMI, , Head/Neck: neck supple, CV: RRR, No murmurs, normal s1/s2 Pulm: mild b/l exp wheeaing, prolonged expiratory phase abd: soft, nontender, +BS x4 Ext: no clubbing/cyanosis/edema Neuro: Alert, no focal deficits, moves all extremities, Skin: warm/dry OBJ DATA Labs CBC & Chem 7: 08/06/20 05:20 08/06/20 05:20 Labs: Abnormal Lab Results 08/06/20 08/06/20 08/05/20 05:20 05:20 09:45 WBC 12.9 H MPV 10.6 H Gran % 89.0 H Lymph % (Auto) 8.[address] [place] % (Auto) Eos % (Auto) Gran # 11.49 H Lymph # (Auto) 1.[address] [place] # (Auto) Eos # (Auto) Chloride 109 H Carbon Dioxide 19 L Glucose 180 H Urine Ketones 20 A 08/05/20 08/05/20 07:00 07:00 WBC 11.7 H MPV 10.7 H Gran % Lymph % (Auto) [place] % (Auto) 13.1 H Eos % (Auto) 11.9 H Gran # Lymph # (Auto) [place] # (Auto) 1.53 H Eos # (Auto) 1.39 H Chloride Carbon Dioxide 20 L Glucose Urine Ketones Meds: Medications Acetaminophen (Tylenol) 650 mg PO Q6HP PRN PRN Reason: PAIN/FEVER > 101 Albuterol/Ipratropium (Duoneb) 3 ml NEB Q6HRT KATERINE Last Admin: 08/06/20 06:18 Dose: Not Given Documented by: Albuterol/Ipratropium (Duoneb) 3 ml NEB Q4HP PRN PRN Reason: Shortness Of Breath Last Admin: 08/06/20 05:00 Dose: 3 ml Documented by: Enoxaparin Sodium (Lovenox) 40 mg SQ DAILY KATERINE Potassium Chloride 40 meq/ (Dextrose) 520 mls @ 130 mls/hr IV UD PRN PRN Reason: Potassium < 3 Magnesium Sulfate (Magnesium Sulfate) 2 gm in 50 mls @ 50 mls/hr IV UD PRN PRN Reason: Magnesium </= 1.6 Azithromycin 500 mg/ Dextrose 250 mls @ 250 mls/hr IV Q24H [facility]; Protocol Stop: 08/08/20 09:59 Methylprednisolone Sodium Succinate (Solu-Medrol) 62.5 mg IV Q8 [facility] Last Admin: 08/06/20 05:31 Dose: 62.5 mg Documented by: Nicotine (Nicoderm) 7 mg TOPICAL DAILY@1000 KATERINE Last Admin: 08/05/20 12:25 Dose: 7 mg Documented by: Ondansetron HCl (Zofran) 4 mg IV Q4HP PRN PRN Reason: Nausea And Vomiting Polyethylene Glycol (Miralax) 17 gm PO DAILYP PRN PRN Reason: Constipation Potassium Chloride (Kdur) 40 meq PO UD PRN PRN Reason: Potssium is 3-3.5 Potassium Chloride (Kdur) 40 meq PO UD PRN PRN Reason: Potassium < 3 Senna (Senokot) 2 tab PO DAILYP PRN PRN Reason: Constipation Sodium Chloride (Saline Flush) 10 ml IV Q8 [facility] Last Admin: 08/06/20 05:34 Dose: 10 ml Documented by: A/P Narrative A/P Narrative: A: *AECOPD(not on home O2): likely related to cleaning products -RVP neg, covid from recent admit neg *Acute hypoxic respiratory failure: -now on 1L NC *Tobacco abuse: * P: -Steroids (wean), nebs/prn -IS/acapella -empiric azithromycin -Nicotine patch, smoking cessation counseling -RT to assess for home O2 if needed on d/c -ppx: Lovenox full code Time Spent With Patient Time: Total time spent is greater than 50% in coordination of care (as documented) at patient's floor/unit and/or counseling patient:
--- NOTE | 2020-08-06 09:26 | Discharge Summary ---
Discharge Provider Provider Patient information: Note initiated : 08/06/20 at 9:25 am Service Date, if different from initiated Date: [] Patient: Nuzhat Donis 64 y/o F admitted on 08/05/20 for shortness of breath. Chief Complaint: [] Date of admission: 08/05/20 09:59 Consults: 08/05/20 Consult to Physician [CONS] Stat Comment: Consulting Provider: Bj Gann Reason For Exam: Physician to Consult Discharge Meds Discharge Medications Home Medications albuterol sulfate 1 - 2 puff IH Q4H PRN #1 hfa.aer.ad 09/27/19 [Rx Confirmed 08/05/20 Last Taken 12/18/19] fluticasone propionate 2 puff INH BID #1 inhaler 12/18/19 [Rx Confirmed 08/05/20 Last Taken Unknown] montelukast 10 mg PO QHS 07/26/20 [History Confirmed 08/05/20 Last Taken Unknown] tiotropium-olodaterol 2 puff INHALATION QDAY #4 g 07/30/20 [Rx Confirmed 08/05/20 Last Taken Unknown] prednisone See Rx Instructions .ROUTE .COMPLEX #1 tab 08/06/20 [Rx Last Taken Unknown] COURSE Hospital Course Hospital course: History of present illness: Ms. Donis is a 64 year old F Presents the ED with shortness of breath. 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 She went back to work in June and has been working for the past 3 weeks or so. Obviously there is been more stringent cleaning practices. She was hospitali zed here over a week ago for COPD exacerbation went home on room air and was doing well. Went back to work for the first time on Friday and started her shift okay but then chcf through became short of breath and needed to go use a nebulizer treatment so she went home and came back and by the end of the shift she was more short of breath. At that night she took her breathing treatments including her nebulizer and went to bed and in the morning she was even more short of breath and her heart was pounding. She denies fever chills. She has a productive cough which is green which is been that way since she was hospitalized last week. In the ED she had a room air sat of 83%. She has never seen a j2ee application developer read official pulmonary function testing done. She received multiple breathing treatments including heart nebs in the ED with improvement. Still on supplemental oxygen. 08/06 States she is feeling a lot better. And breathing is improving but still labored at times. Has cough. A/P Narrative: A: *AECOPD(not on home O2): likely related to cleaning products -RVP neg, covid from recent admit neg *Acute hypoxic respiratory failure: -now on 1L NC *Tobacco abuse: * Discharge diagnosis: COPD exacerbation acute hypoxic respiratory failure tobacco abuse Time Spent with Patient Time attestation: Total time spent providing and/or coordinating discharge services: Time spent: Greater than 30 minutes EXAM Constitutional Vitals: Temp Pulse Resp BP Pulse Ox 97.8 F 90 20 124/66 94 08/06/20 07:51 08/06/20 07:51 08/06/20 07:51 08/06/20 07:51 08/06/20 07:51 Discharge Data Data Completed and Pending Labs on day of discharge: Labs from last 24 hours 08/06/20 08/06/20 08/05/20 05:20 05:20 09:45 WBC 12.9 H RBC 3.85 Hgb 12.2 Hct 36.8 MCV 95.6 MCH 31.7 MCHC 33.2 RDW 12.0 Plt Count 255 MPV 10.6 H Gran % 89.0 H Lymph % (Auto) 8.6 L [place] % (Auto) 2.2 Eos % (Auto) 0 Baso % (Auto) 0.2 Gran # 11.49 H Lymph # (Auto) 1.11 L [place] # (Auto) 0.29 Eos # (Auto) 0 Baso # (Auto) 0.02 Sodium 140 Potassium 4.0 Chloride 109 H Carbon Dioxide 19 L Anion Gap 12.0 BUN 12 Creatinine 0.8 GFR Calculation 77 Glucose 180 H Uric Acid 3.8 Calcium 8.9 Phosphorus 3.5 Magnesium 2.2 Total Bilirubin 0.3 Direct Bilirubin < 0.2 GGT 13 AST 13 ALT 13 Alkaline Phosphatase 99 Lactate Dehydrogenase 180 Total Protein 6.5 Albumin 3.6 Globulin 2.9 Albumin/Globulin Ratio 1.2 Triglycerides 46 Urine Color Yellow Urine Appearance Clear Urine pH 5.0 Ur Specific [place] 1.023 Urine Protein Neg Urine Glucose (UA) Negative Urine Ketones 20 A Urine Occult Blood Neg Urine Nitrate Neg Urine Bilirubin Neg Urine Urobilinogen Neg Ur Leukocyte Esterase Neg Ur Culture Indicated? No Discharge Plan Patient/Caregiver Discharge Instructions Activity: increase activity as tolerated Diet: Regular Diet Activity Restrictions/Additional Instructions: Referral to see j2ee application developer in 3 to 10 days Follow-up with your PCP in 3 to 7 days Prescriptions: New prednisone 10 mg tablet See Rx Instructions .ROUTE .COMPLEX Qty: 1 RF: 0 Continued albuterol sulfate 8.5 GM HFA aerosol inhaler 1 - 2 puff IH Q4H PRN (Reason: Wheezing) Qty: 1 RF: 0 fluticasone propionate 1 PUFF inhaler 2 puff INH BID Qty: 1 RF: 0 montelukast 10 mg Tablet 10 mg PO QHS RF: 0 tiotropium-olodaterol 2.5-2.5 mcg/actuation mist 2 puff INHALATION QDAY Qty: 4 RF: 0 Follow Up Plan Patient Disposition: Home, Self-Care Prognosis: Fair
[2020-08-06] MEDS: FLUTICASONE/SALMETEROL 250/50 INHALER #14 INH SCH ×2 (10:05→23:04)
[2020-08-06] MEDS: NICOTINE 7 MG PATCH TOPICAL SCH (10:06)
[2020-08-06] MEDS: AZITHROMYCIN 500 MG in DEXTROSE 5% IN WATER 250 ML IV SCH (10:06)
[2020-08-06] MEDS: ENOXAPARIN 40 MG/0.4 ML SYRINGE SQ SCH (10:06)
[2020-08-06] MEDS ORDERED: methylPREDNISolone SOD SUCC 40 MG/ML VIAL IV SCH (21:00)
[2020-08-06] MEDS: MONTELUKAST 10 MG TABLET PO SCH (23:05)
[2020-08-07] MEDS: IPRATROPIUM/ALBUTEROL 3 ML AMPUL.NEB NEB SCH ×4 (01:40→16:37)
[2020-08-07] MEDS: 0.9 % SODIUM CHLORIDE 10 ML SYRINGE IV SCH ×3 (05:53→20:29)
[2020-08-07 06:24] LABS: Basophils # (Auto) 0.01 K/mcL (0.00-0.30); Basophils % (Auto) 0.1 % (0.0-2.0); Eosinophils # (Auto) 0 K/mcL (0.00-0.70); Eosinophils % (Auto) 0 % (0.0-7.0); Granulocytes % (Auto) 91.2 % (38.0-78.0); Hemoglobin 12.1 g/dL (11.2-15.7); Lymphocytes # (Auto) 1.04 K/mcL (1.50-4.80); Lymphocytes % (Auto) 6.4 % (15.5-49.0); Mean Cell Volume 97.9 fL (80.0-100.0); Mean Corpuscular HGB Conc 32.7 g/dL (31.0-36.0); Mean Platelet Volume 11.1 fL (7.4-10.4); Monocytes # (Auto) 0.37 K/mcL (0.10-0.90); Monocytes % (Auto) 2.3 % (1.0-12.0); Platelet Count 274 K/mcL (140-440); RBC 3.78 M/mcL (3.59-5.38); Red Cell Distribution Width 12.6 % (11.5-14.5); WBC 16.2 K/mcL (4.50-11.00)
--- NOTE | 2020-08-07 07:50 | Internal Med Progress Note ---
SUBJECTIVE Subjective Patient information: Note initiated : 08/07/20 at 7:48 am Service Date, if different from initiated Date: [] Patient: Nuzhat Donis 64 y/o F admitted on 08/05/20 for shortness of breath. Chief Complaint: [] Interval history: History of present illness: Ms. Donis is a 64 year old F Presents the ED with shortness of breath. 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 She went back to work in June and has been working for the past 3 weeks or so. Obviously there is been more stringent cleaning practices. She was hospitalized here over a week ago for COPD exacerbation went home on room air and was doing well. Went back to work for the first time on Friday and started her shift okay but then chcf through became short of breath and needed to go use a nebulizer treatment so she went home and came back and by the end of the shift she was more short of breath. At that night she took her breathing pablo atments including her nebulizer and went to bed and in the morning she was even more short of breath and her heart was pounding. She denies fever chills. She has a productive cough which is green which is been that way since she was hospitalized last week. In the ED she had a room air sat of 83%. She has never seen a agricultural service technician read official pulmonary function testing done. She received multiple breathing treatments including heart nebs in the ED with improvement. Still on supplemental oxygen. 08/06 States she is feeling a lot better. And breathing is improving but still labored at times. Has cough. 08/07 Slept all right. Sats 93 to 94% on 1 L. However patient feels like her blaise thing is little bit worse today. Review of Systems: denies headache/fever/chills/nausea/vomiting/chest or abdominal pain/diarrhea. Otherwise see above. Constitutional Vitals: Vital Signs Temp Pulse Resp BP Pulse Ox 98.5 F 83 18 105/65 93 08/07/20 04:00 08/07/20 07:34 08/07/20 07:34 08/07/20 04:00 08/07/20 04:00 Period Temp Pulse Resp BP Sys/[place] Pulse Ox Last 24 Hr 97.7 F-98.5 F 80-103 16-26 105-124/61-75 91-94 Intake and Output 08/06/20 08/07/20 08/07/20 21:59 05:59 13:59 Intake Total 840 760 Output Total 1500 Balance 840 -740 Weight 51.301 kg Intake & Output: Intake & Output 08/06/20 08/07/20 08/07/20 21:59 05:59 13:59 Intake Total 840 760 Output Total 1500 Balance 840 -740 Weight 51.301 kg Intake: Oral 840 760 Output: Void Amount 1500 Other: Meal Dinner Percent of Meal Consumed 75% Feeding Ability Independent Urine Appearance Clear Clear Urine Color Bright Yellow Bright Yellow Urine Odor Normal Normal Exam: General: Alert, Awake, No acute Distress Eyes/N/T: EOMI, , Head/Neck: neck supple, CV: RRR, No murmurs, normal s1/s2 Pulm: no wheezing today, prolonged expiratory phase, no rhonchi abd: soft, nontender, +BS x4 Ext: no clubbing/cyanosis/edema Neuro: Alert, no focal deficits, moves all extremities, Skin: warm/dry OBJ DATA Labs CBC & Chem 7: 08/07/20 05:06 08/06/20 05:20 Labs: Abnormal Lab Results 08/07/20 08/06/20 08/06/20 05:06 05:20 05:20 WBC 16.2 H 12.9 H MPV 11.1 H 10.6 H Gran % 91.2 H 89.0 H Lymph % (Auto) 6.4 L 8.6 L [place] % (Auto) Eos % (Auto) Gran # 14.73 H 11.49 H Lymph # (Auto) 1.04 L 1.11 L [place] # (Auto) Eos # (Auto) Chloride 109 H Carbon Dioxide 19 L Glucose 180 H Urine Ketones 08/05/20 08/05/20 08/05/20 09:45 07:00 07:00 WBC 11.7 H MPV 10.7 H Gran % Lymph % (Auto) [place] % (Auto) 13.1 H Eos % (Auto) 11.9 H Gran # Lymph # (Auto) [place] # (Auto) 1.53 H Eos # (Auto) 1.39 H Chloride Carbon Dioxide 20 L Glucose Urine Ketones 20 A Meds: Medications Acetaminophen (Tylenol) 650 mg PO Q6HP PRN PRN Reason: PAIN/FEVER > 101 Albuterol/Ipratropium (Duoneb) 3 ml NEB Q6HRT [facility] Last Admin: 08/07/20 07:26 Dose: 3 ml Documented by: Albuterol/Ipratropium (Duoneb) 3 ml NEB Q4HP PRN PRN Reason: Shortness Of Breath Last Admin: 08/06/20 05:00 Dose: 3 ml Documented by: Enoxaparin Sodium (Lovenox) 40 mg SQ DAILY [facility] Last Admin: 08/06/20 10:06 Dose: 40 mg Documented by: Potassium Chloride 40 meq/ (Dextrose) 520 mls @ 130 mls/hr IV UD PRN PRN Reason: Potassium < 3 Magnesium Sulfate (Magnesium Sulfate) 2 gm in 50 mls @ 50 mls/hr IV UD PRN PRN Reason: Magnesium </= 1.6 Azithromycin 500 mg/ Dextrose 250 mls @ 250 mls/hr IV Q24H [facility]; Protocol Stop: 08/08/20 09:59 Last Infusion: 08/06/20 11:06 Dose: Infused Documented by: Methylprednisolone Sodium Succinate (Solu-Medrol) 40 mg IV Q12 [facility] Last Admin: 08/06/20 23:05 Dose: 40 mg Documented by: Montelukast Sodium (Singular) 10 mg PO HS [facility] Last Admin: 08/06/20 23:05 Dose: 10 mg Documented by: Nicotine (Nicoderm) 7 mg TOPICAL DAILY@1000 [facility] Last Admin: 08/06/20 10:06 Dose: 7 mg Documented by: Ondansetron HCl (Zofran) 4 mg IV Q4HP PRN PRN Reason: Nausea And Vomiting Polyethylene Glycol (Miralax) 17 gm PO DAILYP PRN PRN Reason: Constipation Potassium Chloride (Kdur) 40 meq PO UD PRN PRN Reason: Potssium is 3-3.5 Potassium Chloride (Kdur) 40 meq PO UD PRN PRN Reason: Potassium < 3 Fluticasone/Salmeterol (Advair 250-50 Diskus) 2 puff INH BID [facility] Last Admin: 08/06/20 23:04 Dose: 2 puff Documented by: Senna (Senokot) 2 tab PO DAILYP PRN PRN Reason: Constipation Sodium Chloride (Saline Flush) 10 ml IV Q8 [facility] Last Admin: 08/07/20 05:53 Dose: Not Given Documented by: A/P Narrative A/P Narrative: A: *AECOPD(not on home O2): likely related to cleaning products -RVP neg, covid from recent admit neg -SC neg -still labored, slowly improving *Acute hypoxic respiratory failure: -now on 1L NC *Tobacco abuse: * P: -Steroids (wean), nebs/prn -IS/acapella -empiric azithromycin -Nicotine patch, smoking cessation counseling -RT to assess for home O2 if needed on d/c -ppx: Lovenox full code Time Spent With Patient Time: Total time spent is greater than 50% in coordination of care (as documented) at patient's floor/unit and/or counseling patient:
[2020-08-07] MEDS ORDERED: BENZONATATE 100 MG CAPSULE PO ONE (08:27)
[2020-08-07] MEDS ORDERED: BENZONATATE 100 MG CAPSULE PO PRN (08:27)
[2020-08-07] MEDS: AZITHROMYCIN 500 MG in DEXTROSE 5% IN WATER 250 ML IV SCH (09:20)
[2020-08-07] MEDS: ENOXAPARIN 40 MG/0.4 ML SYRINGE SQ SCH (09:21)
[2020-08-07] MEDS: FLUTICASONE/SALMETEROL 250/50 INHALER #14 INH SCH ×2 (09:21→20:28)
[2020-08-07] MEDS: predniSONE 20 MG TABLET PO SCH ×2 (09:22→16:48)
[2020-08-07] MEDS: NICOTINE 7 MG PATCH TOPICAL SCH (09:22)
[2020-08-07] MEDS: MONTELUKAST 10 MG TABLET PO SCH (20:28)
[2020-08-08] MEDS: IPRATROPIUM/ALBUTEROL 3 ML AMPUL.NEB NEB SCH ×2 (00:25→08:07)
[2020-08-08] MEDS: 0.9 % SODIUM CHLORIDE 10 ML SYRINGE IV SCH ×2 (04:12→15:13)
[2020-08-08 06:41] LABS: Hematocrit 37.5 % (34.1-44.9); Hemoglobin 12.4 g/dL (11.2-15.7); Mean Cell Volume 96.9 fL (80.0-100.0); Mean Corpuscular HGB Conc 33.1 g/dL (31.0-36.0); Platelet Count 291 K/mcL (140-440); RBC 3.87 M/mcL (3.59-5.38); Red Cell Distribution Width 12.2 % (11.5-14.5); WBC 15.9 K/mcL (4.50-11.00)
[2020-08-08 08:15] LABS: Lymphocytes % 6 % (15-49); Monocytes % (Manual) 3 % (1-12); Platelet Estimate NORMAL (NORMAL); RBC Morphology NORMAL (NORMAL); Segmented Neutrophils % 91 % (38-78)
[2020-08-08] MEDS: predniSONE 20 MG TABLET PO SCH (09:36)
[2020-08-08] MEDS: ENOXAPARIN 40 MG/0.4 ML SYRINGE SQ SCH (09:36)
[2020-08-08] MEDS: AZITHROMYCIN 500 MG in DEXTROSE 5% IN WATER 250 ML IV SCH (09:37)
[2020-08-08] MEDS: NICOTINE 7 MG PATCH TOPICAL SCH (09:37)
[2020-08-08] MEDS: FLUTICASONE/SALMETEROL 250/50 INHALER #14 INH SCH (09:37)
--- NOTE | 2020-08-08 12:14 | Discharge Summary ---
Discharge Provider Provider Patient information: Note initiated : 08/08/20 at 12:11 pm Service Date, if different from initiated Date: [] Patient: Nuzhat Donis 64 y/o F admitted on 08/05/20 for shortness of breath. Chief Complaint: [] Date of admission: 08/05/20 09:59 Discharge date: 08/08/20 Consults: 08/05/20 Consult to Physician [CONS] Stat Comment: Consulting Provider: Bj Gann Reason For Exam: Physician to Consult Discharge Meds Discharge Medications Home Medications albuterol sulfate 1 - 2 puff IH Q4H PRN #1 hfa.aer.ad 09/27/19 [Rx Confirmed 08/05/20 Last Taken 12/18/19] fluticasone propionate 2 puff INH BID #1 inhaler 12/18/19 [Rx Confirmed 08/05/20 Last Taken Unknown] montelukast 10 mg PO QHS 07/26/20 [History Confirmed 08/05/20 Last Taken Unknown] tiotropium-olodaterol 2 puff INHALATION QDAY #4 g 07/30/20 [Rx Confirmed 08/05/20 Last Taken Unknown] prednisone See Rx Instructions .ROUTE .COMPLEX #1 tab 08/06/20 [Rx Last Taken Unknown] ipratropium-albuterol 3 ml INHALATION Q4H PRN 08/07/20 [History Confirmed 08/07/20 Last Taken 08/04/20 23:00] COURSE Hospital Course Hospital course: *AECOPD(not on home O2): likely related to cleaning products -RVP neg, covid from recent admit neg -SC neg - Steroids (will stop today), nebs/prn -IS/acapella -empiric azithromycin (will stop today) -slowly improving. She is now on room air with a good oxygen saturation. However she needs home oxygen by RT. She became desaturated (86% and went back to 91% on 2 L). 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 She went back to work in June and has been working for the past 3 weeks or so. Obviously there is been more stringent cleaning practices. She was hospitalized here over a week ago for COPD exacerbation went home on room air and was doing well. Went back to work for the first time on Friday and started her shift okay but then custodial through became short of breath and needed to go use a nebulizer treatment so she went home and came back and by the end of the shift she was more short of breath. At that night she took her breathing treatments including her nebulizer and went to bed and in the morning she was even more short of breath and her heart was pounding. She denies fever chills. She has a productive cough which is green which is been that way since she was hospitalized last week. In the ED she had a room air sat of 83%. She has never seen a exterminator helper read official pulmonary function testing done. She received multiple breathing treatments including heart nebs in the ED with improvement. Still on supplemental oxygen. 08/06 States she is feeling a lot better. And breathing is improving but still labored at times. Has cough. 08/07 Slept all right. Sats 93 to 94% on 1 L. However patient feels like her breathing is little bit worse today. 08/08 Patient feels much better. Denies headache, dizziness, nausea, vomiting, chest pain, or dysuria. She is on room air with a good oxygen saturation. However, she needs home oxygen by RT. She became desaturated (86% and went back to 91% on 2 L). PT okay to home. She will be discharged home to follow with PCP and exterminator helper. Call PCP for medical issues. Discharge diagnosis: COPD exacerbation Time Spent with Patient Time attestation: Total time spent providing and/or coordinating discharge services: EXAM Constitutional Vitals: Temp Pulse Resp BP Pulse Ox 97.4 F 81 24 H 118/72 92 08/08/20 11:20 08/08/20 11:20 08/08/20 11:20 08/08/20 11:20 08/08/20 11:20 Additional findings Additional findings: General: Alert, Awake, No acute Distress Eyes/N/T: EOMI, , Head/Neck: neck supple, CV: RRR, No murmurs, normal s1/s2 Pulm: no wheezing today, prolonged expiratory phase, no rhonchi abd: soft, nontender, +BS x4 Ext: no clubbing/cyanosis/edema Neuro: Alert, no focal deficits, moves all extremities, Skin: warm/dry Discharge Data Data Completed and Pending Labs on day of discharge: Labs from last 24 hours 08/08/20 05:14 WBC 15.9 H RBC 3.87 Hgb 12.4 Hct 37.5 MCV 96.9 MCH 32.0 MCHC 33.1 RDW 12.2 Plt Count 291 MPV 11.0 H Total Counted 100 Seg Neutrophils % 91 H Band Neutrophils % Not Reportable Lymphocytes % 6 L Monocytes % (Manual) 3 Platelet Estimate Normal RBC Morphology Normal Discharge Plan Patient/Caregiver Discharge Instructions Activity: increase activity as tolerated Diet: Regular Diet Activity Restrictions/Additional Instructions: Referral to see exterminator helper in 3 to 10 days Follow-up with your PCP in 3 to 7 days Prescriptions: New prednisone 10 mg tablet See Rx Instructions .ROUTE .COMPLEX Qty: 1 RF: 0 Continued albuterol sulfate 8.5 GM HFA aerosol inhaler 1 - 2 puff IH Q4H PRN (Reason: Wheezing) Qty: 1 RF: 0 fluticasone propionate 1 PUFF inhaler 2 puff INH BID Qty: 1 RF: 0 montelukast 10 mg Tablet 10 mg PO QHS RF: 0 tiotropium-olodaterol 2.5-2.5 mcg/actuation mist 2 puff INHALATION QDAY Qty: 4 RF: 0 No Action ipratropium-albuterol 0.5 mg-3 mg(2.5 mg base)/3 mL Solution For Nebulization 3 ml INHALATION Q4H PRN (Reason: Shortness Of Breath) RF: 0 Follow Up Plan Follow up with: Unknown [Outside] (Follow with PCP and exterminator helper within 1 week.) Patient Disposition: Home, Self-Care Prognosis: Fair Discharge Orders: Discharge Order (Routine); Ordered 08/08/20 Ordered By: Soo Pearce
== END 2020-08-08 14:36 | disposition home or self-care (01) | DRG 190 ==
LOC: ED 06:31 → MEDSUR 09:58
PROVIDERS: ADMIT Internal Medicine; ATTEND Internal Medicine

== ENCOUNTER 2020-09-25 21:24 | Inpatient (IN) ==
[2020-09-25] MEDS ORDERED: IPRATROPIUM/ALBUTEROL 3 ML AMPUL.NEB NEB ONE ×2 (21:44→21:46)
[2020-09-25] MEDS ORDERED: methylPREDNISolone SOD SUCC 125 MG/2 ML VIAL IV ONE (22:15)
[2020-09-25] MEDS ORDERED: AZITHROMYCIN 500 MG in DEXTROSE 5% IN WATER 250 ML IV ONE (22:15)
--- NOTE | 2020-09-25 22:18 | Emergency Department Note ---
SOB HPI General Chief Complaint: Shortness of Breath/Dyspnea Stated Complaint: shortness of breath Time Seen by Provider: 09/25/20 21:43 Source: patient and RN notes reviewed Mode of arrival: ambulatory Limitations: no limitations History of Present Illness HPI Narrative: Narrative: This patient has been short of breath for the last couple of days. She has a history of COPD and has been wheezing. She does use inhalers at home but does not seem to be improving. Her O2 saturation was 91% on room air. She says prednisone has helped her in the past. She has had a nonproductive cough. MD Complaint: shortness of breath and cough Onset (ago): day(s) Context: recent illness Severity: moderate Consistency/Duration: constant Improves with: oxygen and bronchodilators Worsens with: nothing Known history of: COPD Related Data Home Medications Medication Instructions Recorded Confirmed montelukast 10 mg PO QHS 07/26/20 09/25/20 ipratropium-albuterol 3 ml INHALATION Q4H PRN 08/07/20 09/25/20 oxygen MISCELLANEOUS 08/14/20 08/29/20 Previous Rx's Medication Instructions Recorded albuterol sulfate 90 mcg/actuation 1 - 2 puff INHALATION Q4H PRN #18 g 08/29/20 aerosol inhaler fluticasone fur. 100 mcg-umeclid 1 inh INHALATION Q24H #60 each 09/19/20 62.5 mcg-vilant 25 mcg inhalat.powder azithromycin [Zithromax] 250 mg PO QDAY #4 tab 09/25/20 prednisone [Prednisone] 20 mg PO DAILY #23 tab 09/25/20 Allergies Allergy/AdvReac Type Severity Reaction Status Date / Time shrimp Allergy Severe Difficulty Verified 09/25/20 21:31 Breathing lactose Allergy Intermediate Difficulty Verified 09/25/20 21:31 Breathing aspirin AdvReac Mild Gastrointestinal Verified 09/25/20 21:31 Upset Review of Systems ROS ROS Narrative: Narrative: All systems ED: reviewed and negative except as stated. [facility] Narrative Patient History Narrative: Narrative: Medical/Surgical/Family History All Active Problems Nocturnal hypoxia (Acute) Infiltrate of lung present on chest x-ray (Acute) Hypoxia (Acute) Candidiasis of mouth (Acute) Chronic obstructive lung disease (Acute) Tuberculosis (Acute ~1963) Tobacco dependence syndrome (Acute) Hypoxia (Acute) COPD exacerbation (Acute) Abnormal chest x-ray (Acute) Exercise hypoxemia (Acute) Cigarette smoker (Chronic) Medical History (Updated 09/25/20 @ 23:38 by Brodie Alarcon MD) Abnormal chest x-ray (Acute) Candidiasis of mouth (Acute) Chronic obstructive lung disease (Acute) Cigarette smoker (Chronic) 2-3 per day (07-25-2020) COPD exacerbation (Acute) Exercise hypoxemia (Acute) History of cervical cancer (Acute) 1995 stage 4 History of tuberculosis (Acute) 1965 Hypoxia (Acute) Infiltrate of lung present on chest x-ray (Acute) Nocturnal hypoxia (Acute) Pleural effusion (Resolved) Tobacco dependence syndrome (Acute) Tuberculosis (Acute ~1963) Treated INH and one other med for one year Surgical History History of tonsillectomy (Acute) History of tubal ligation (Acute) Family History Sister Cancer Overdose age 35 Brother Overdose age 40 Social History Smoking Status: Current some day smoker Alcohol Intake Frequency: 0-2 drinks per day (1 drink of vodka per night; weekends sometimes 2 (08/05/2020)) Substance Use: former substance user Exam Narrative Narrative: Narrative: General Limitations: no limitations Head Head: Present atraumatic, normocephalic and normal inspection Eye Eye: Present normal appearance and EOMI; Absent scleral icterus and conjunctival injection ENT ENT: Present normal exam, normal oropharynx and mucous membranes moist Neck Neck: Present normal inspection and full ROM Chest Chest: Present normal inspection and symmetric chest wall rise Respiratory Respiratory: Present wheezes; Absent respiratory distress Cardiovascular Cardiovascular: Present regular rate, normal rhythm and normal heart sounds Adbominal Abdominal: Present soft; Absent distention and tenderness Extremities Extremities: Present normal inspection and full ROM; Absent pedal edema and pretibial edema Neurological Neurological: Present alert Psychiatric Psychiatric: Present normal affect Skin Skin: Present warm (WNL) and dry; Absent diaphoresis Course Vital Signs Vital signs: Vital Signs Temperature 98.1 F 09/25/20 21:24 Pulse Rate 109 H 09/25/20 21:24 Respiratory Rate 26 H 09/25/20 21:24 Blood Pressure 153/103 09/25/20 21:24 Pulse Oximetry (%) 91 09/25/20 21:24 Temperature 98.1 F 09/25/20 21:24 Pulse Rate 94 H 09/25/20 23:02 Respiratory Rate 23 H 09/25/20 23:02 Blood Pressure 136/68 09/25/20 22:47 Pulse Oximetry (%) 94 09/25/20 23:02 MDM MDM Narrative Medical decision making narrative: Narrative: Patient was treated with fluid Solu-Medrol Zithromax and DuoNeb treatment and felt better after that. Her O2 saturation was in the mid 90s after treatment. Lab Data Lab results narrative: White count was slightly elevated at 11.7 lactic acid slightly elevated at 2.3. Result diagrams: 09/25/20 21:44 09/25/20 21:44 Labs: Lab Results 09/25/20 09/25/20 09/25/20 Range/Units 21:44 21:44 21:44 WBC 11.7 H (4.5-11.0) K/mcL RBC 4.22 (4.00-5.20) M/mcL Hgb 13.5 (12.0-15.0) g/dL Hct 39.7 (36.0-48.0) % MCV 94.1 (80.0-100.0) fL MCH 32.0 (26.0-34.0) pg MCHC 34.0 (31.0-36.0) g/dL RDW 12.2 (11.5-14.5) % Plt Count 301 (140-440) K/mcL MPV 11.2 H (7.4-10.4) fL Neut % (Auto) 48.7 (38.0-78.0) % Lymph % (Auto) 25.3 (15.0-49.0) % [place] % (Auto) 9.8 (1.0-12.0) % Eos % (Auto) 15.6 H (0.0-7.0) % Baso % (Auto) 0.6 (0.0-2.0) % Lymph # (Auto) 2.95 (1.50-4.80) K/mcL [place] # (Auto) 1.14 H (0.10-0.90) K/mcL Eos # (Auto) 1.82 H (0.00-0.70) K/mcL Baso # (Auto) 0.07 (0.00-0.20) K/mcL Absolute Neutrophils 5.70 (1.80-8.00) K/mcL VBG Lactic Acid 2.3 H (0.5-2.0) mmol/L Sodium 143 (133-145) mmol/L Potassium 4.2 (3.3-5.1) mmol/L Chloride 106 (96-108) mmol/L Carbon Dioxide 25 (22-30) mmol/L Anion Gap 12.0 (8.0-16.0) BUN 11 (8-23) mg/dL Creatinine 0.9 (0.6-1.1) mg/dL GFR Calculation 67 Glucose 113 H (70-105) mg/dL Calcium 9.3 (8.6-10.4) mg/dL Total Bilirubin 0.5 (0.1-1.0) mg/dL AST 18 (<32) U/L ALT 13 (<40) U/L Alkaline Phosphatase 93 (39-117) U/L Troponin T (<0.03) ng/mL NT-Pro-B Natriuret Pep 71.4 (<125.0) pg/mL Total Protein 7.0 (5.9-8.4) gm/dL Albumin 4.4 (3.2-5.2) gm/dL Globulin 2.6 (2.2-3.7) gm/dL Albumin/Globulin Ratio 1.7 (1.0-2.3) 09/25/20 Range/Units 21:44 WBC (4.5-11.0) K/mcL RBC (4.00-5.20) M/mcL Hgb (12.0-15.0) g/dL Hct (36.0-48.0) % MCV (80.0-100.0) fL MCH (26.0-34.0) pg MCHC (31.0-36.0) g/dL RDW (11.5-14.5) % Plt Count (140-440) K/mcL MPV (7.4-10.4) fL Neut % (Auto) (38.0-78.0) % Lymph % (Auto) (15.0-49.0) % [place] % (Auto) (1.0-12.0) % Eos % (Auto) (0.0-7.0) % Baso % (Auto) (0.0-2.0) % Lymph # (Auto) (1.50-4.80) K/mcL [place] # (Auto) (0.10-0.90) K/mcL Eos # (Auto) (0.00-0.70) K/mcL Baso # (Auto) (0.00-0.20) K/mcL Absolute Neutrophils (1.80-8.00) K/mcL VBG Lactic Acid (0.5-2.0) mmol/L Sodium (133-145) mmol/L Potassium (3.3-5.1) mmol/L Chloride (96-108) mmol/L Carbon Dioxide (22-30) mmol/L Anion Gap (8.0-16.0) BUN (8-23) mg/dL Creatinine (0.6-1.1) mg/dL GFR Calculation Glucose (70-105) mg/dL Calcium (8.6-10.4) mg/dL Total Bilirubin (0.1-1.0) mg/dL AST (<32) U/L ALT (<40) U/L Alkaline Phosphatase (39-117) U/L Troponin T < 0.01 (<0.03) ng/mL NT-Pro-B Natriuret Pep (<125.0) pg/mL Total Protein (5.9-8.4) gm/dL Albumin (3.2-5.2) gm/dL Globulin (2.2-3.7) gm/dL Albumin/Globulin Ratio (1.0-2.3) Radiology Data Radiology results reviewed: Yes I reviewed the patient's radiology results. Radiology results narrative: Chest x-ray is consistent with COPD without obvious infiltrate Discharge Plan Patient/Caregiver Discharge Instructions Pt seen by SINGLE END SEWER/PA only: No Clinical Impression: COPD exacerbation Instructions: COPD (Chronic Obstructive Pulmonary Disease) (ED) Activity Restrictions/Additional Instructions: Use your inhaler whenever needed quarantine until you get your Covid results in 3 or 4 days Patient Disposition: Home, Self-Care Follow up with: Jhoana Lopez MD [Primary Care Provider] - Prescriptions: New prednisone [Prednisone] 20 MG tablet 20 mg PO DAILY Qty: 23 RF: 0 azithromycin [Zithromax] 250 mg tablet 250 mg PO QDAY Qty: 4 RF: 0 No Action Trelegy Ellipta 100-62.5-25 mcg blister with device 1 inh INHALATION Q24H Qty: 60 RF: 6 oxygen miscellaneous RF: 0 albuterol sulfate 90 mcg/actuation HFA aerosol inhaler 1 - 2 puff inhalation Q4H PRN (Reason: Wheezing) Qty: 18 RF: 1 montelukast 10 mg Tablet 10 mg PO QHS RF: 0 ipratropium-albuterol 0.5 mg-3 mg(2.5 mg base)/3 mL Solution For Nebulization 3 ml INHALATION Q4H PRN (Reason: Shortness Of Breath) RF: 0
[2020-09-25 22:28] LABS: Basophils # (Auto) 0.07 K/mcL (0.00-0.20); Basophils % (Auto) 0.6 % (0.0-2.0); Eosinophils # (Auto) 1.82 K/mcL (0.00-0.70); Eosinophils % (Auto) 15.6 % (0.0-7.0); Hematocrit 39.7 % (36.0-48.0); Hemoglobin 13.5 g/dL (12.0-15.0); Lymphocytes # (Auto) 2.95 K/mcL (1.50-4.80); Lymphocytes % (Auto) 25.3 % (15.0-49.0); Mean Cell Volume 94.1 fL (80.0-100.0); Mean Platelet Volume 11.2 fL (7.4-10.4); Monocytes # (Auto) 1.14 K/mcL (0.10-0.90); Monocytes % (Auto) 9.8 % (1.0-12.0); Neutrophils % (Auto) 48.7 % (38.0-78.0); Platelet Count 301 K/mcL (140-440); RBC 4.22 M/mcL (4.00-5.20); Red Cell Distribution Width 12.2 % (11.5-14.5); WBC 11.7 K/mcL (4.5-11.0)
[2020-09-25 22:50] LABS: proBNP 71.4 pg/mL (<125.0)
[2020-09-25 22:52] LABS: ALT/SGPT 13 U/L (<40); AST/SGOT 18 U/L (<32); Albumin 4.4 gm/dL (3.2-5.2); Albumin/Globulin Ratio 1.7 (1.0-2.3); Alkaline Phosphatase 93 U/L (39-117); Bilirubin,Total 0.5 mg/dL (0.1-1.0); Blood Urea Nitrogen 11 mg/dL (8-23); Calcium 9.3 mg/dL (8.6-10.4); Carbon Dioxide 25 mmol/L (22-30); Chloride 106 mmol/L (96-108); Globulin 2.6 gm/dL (2.2-3.7); Glomerular Filtration Rate 67; Glucose 113 mg/dL (70-105)
[2020-09-26] MEDS ORDERED: IPRATROPIUM/ALBUTEROL 3 ML AMPUL.NEB NEB ONE (00:27)
[2020-09-26 02:15] LABS: Appearance,Urine CLEAR (Clear); Bilirubin,Urine Negative (Negative); Color,Urine YELLOW; Culture Indicated,Urine No; Glucose,Urine (UA) Negative (Negative); Ketones,Urine Negative (Negative); Leukocyte Esterase,Urine Negative /ug (Negative); Mucus,Urine FEW /hpf; Nitrate,Urine Negative (Negative); Protein,Urine Negative (Negative); Specific Gravity,Urine 1.012 (1.000-1.035); Urine Blood Negative (Negative); Urine RBC 1 /hpf (0-1); Urine Squamous Epithelial Cell 2 /hpf (0-4); Urine WBC < 1 /hpf (0-4); Urobilinogen,Urine Negative
--- NOTE | 2020-09-26 03:32 | XRay Report ---
CLINICAL INFORMATION: sob COMPARISON: 08/05/2020 FINDINGS: Heart size, mediastinum and pulmonary vessels are unremarkable. Severe emphysema again noted. Mild fibrosis noted in the right infrahilar region is seen - as before. No definite new pulmonary abnormalities. No effusions IMPRESSION: Stable COPD. Interpreted and Authenticated by: Colin Evans 09/26/20
--- NOTE | 2020-09-26 09:27 | Internal Med History&Physical ---
HPI History of Present Illness Patient information: Note initiated : 09/26/20 at 9:22 am Service Date, if different from initiated Date: [] Patient: Nuzhat Donis 64 y/o F admitted on 09/26/20 for shortness of breath. Chief Complaint: [] History of present illness: Ms. Donis is a 64 year old F Presents to the ED with worsening shortness of breath over the last several days. Been using her inhalers but no long-term improvement. She has a nonp roductive cough, that is chronic and no new change.. Had oxygen saturations of 88% on room air in the ED. Which did improve temporarily with breathing treatments. However she became more short of breath and wheezy and oxygen went down to 86% ended up requiring oxygen to keep her sats greater than 90. Denies exposure to cleaning products recently. Covid screen in the ED was negative. Chest x-ray unremarkable except for COPD. She was mildly tachycardic and tachypneic. Review of Systems: Pertinent positives as above. Denies headache/fever/chills/nausea/vomiting/chest or abdominal pain/diarrhea. Remaining 10 point review of system reviewed negative PFSH PFSH All Active Problems Nocturnal hypoxia (Acute) Infiltrate of lung present on chest x-ray (Acute) Hypoxia (Acute) Candidiasis of mouth (Acute) Chronic obstructive lung disease (Acute) Tuberculosis (Acute ~1963) Tobacco dependence syndrome (Acute) Hypoxia (Acute) COPD exacerbation (Acute) Abnormal chest x-ray (Acute) Exercise hypoxemia (Acute) Cigarette smoker (Chronic) Medical History (Updated 09/25/20 @ 23:38 by Brodie Alarcon MD) Abnormal chest x-ray (Acute) Candidiasis of mouth (Acute) Chronic obstructive lung disease (Acute) Cigarette smoker (Chronic) 2-3 per day (07-25-2020) COPD exacerbation (Acute) Exercise hypoxemia (Acute) History of cervical cancer (Acute) 1995 stage 4 History of tuberculosis (Acute) 1965 Hypoxia (Acute) Infiltrate of lung present on chest x-ray (Acute) Nocturnal hypoxia (Acute) Pleural effusion (Resolved) Tobacco dependence syndrome (Acute) Tuberculosis (Acute ~1963) Treated INH and one other med for one year Surgical History History of tonsillectomy (Acute) History of tubal ligation (Acute) Family History Sister Cancer Overdose age 35 Brother Overdose age 40 Social History marital status: single occupational status: employed occupation: [employer] smoking status: Current every day smoker tobacco type: cigarettes per day: 10 smoking status start date: 11/10/69 alcohol intake frequency: 0-2 drinks per day (1 drink of vodka per night; week ends sometimes 2 (08/05/2020)) substance use type: former substance user MEDS/ALLERGIES Home Medications and Allergies Home Medications Medication Instructions Recorded Confirmed Type montelukast 10 mg PO QHS 07/26/20 09/26/20 History ipratropium-albuterol 3 ml INHALATION Q4H PRN 08/07/20 09/26/20 History oxygen 3 - 4 l INTRANASAL CONT 08/14/20 09/26/20 History albuterol sulfate 90 mcg/actuation 1 - 2 puff INHALATION Q4H PRN #18 g 08/29/20 09/26/20 Rx aerosol inhaler fluticasone fur. 100 mcg-umeclid 1 inh INHALATION Q24H #60 each 09/19/20 09/26/20 Rx 62.5 mcg-vilant 25 mcg inhalat.powder Allergies Allergy/AdvReac Type Severity Reaction Status Date / Time shrimp Allergy Severe Difficulty Verified 09/25/20 21:31 Breathing lactose Allergy Intermediate Difficulty Verified 09/25/20 21:31 Breathing aspirin AdvReac Mild Gastrointestinal Verified 09/25/20 21:31 Upset EXAM Constitutional Vitals: Temp Pulse Resp BP Pulse Ox 98.7 F 102 H 24 H 155/77 91 09/26/20 08:37 09/26/20 08:37 09/26/20 08:37 09/26/20 08:37 09/26/20 08:37 Exam: General: Alert, Awake, No acute Distress Eyes/N/T: EOMI, PERRL, Head/Neck: neck supple, normocephalic atraumatic CV: RRR, No murmurs, normal s1/s2 Pulm: Diminished bilaterally, occasional wheeze, prolonged expiratory phase, labored abd: soft, nontender, +BS x4 Ext: no clubbing/cyanosis/edema Neuro: Alert, no focal deficits, moves all extremities, CN 2-12 grossly intact, symmetrical strength b/l upper/lower, sensations intact b/l upper/lower Skin: warm/dry DATA Data Completed and Pending Labs: Labs from last 24 hours 09/26/20 09/26/20 09/25/20 01:36 01:03 21:44 WBC RBC Hgb Hct MCV MCH MCHC RDW Plt Count MPV Neut % (Auto) Lymph % (Auto) [place] % (Auto) Eos % (Auto) Baso % (Auto) Lymph # (Auto) [place] # (Auto) Eos # (Auto) Baso # (Auto) Absolute Neutrophils VBG Lactic Acid Sodium Potassium Chloride Carbon Dioxide Anion Gap BUN Creatinine GFR Calculation Glucose Calcium Total Bilirubin AST ALT Alkaline Phosphatase Troponin T NT-Pro-B Natriuret Pep Total Protein Albumin Globulin Albumin/Globulin Ratio Urine Color Yellow Urine Appearance Clear Urine pH 5.0 Ur Specific [place] 1.012 Urine Protein Negative Urine Glucose (UA) Negative Urine Ketones Negative Urine Occult Blood Negative Urine Nitrate Negative Urine Bilirubin Negative Urine Urobilinogen Negative Ur Leukocyte Esterase Negative Urine RBC 1 Urine WBC < 1 Ur Squamous Epith Cells 2 Urine Bacteria None Urine Mucus Few A Ur Culture Indicated? No SARS-CoV-2 (PCR) Negative Pending 09/25/20 09/25/20 09/25/20 21:44 21:44 21:44 WBC RBC Hgb Hct MCV MCH MCHC RDW Plt Count MPV Neut % (Auto) Lymph % (Auto) [place] % (Auto) Eos % (Auto) Baso % (Auto) Lymph # (Auto) [place] # (Auto) Eos # (Auto) Baso # (Auto) Absolute Neutrophils VBG Lactic Acid 2.3 H Sodium 143 Potassium 4.2 Chloride 106 Carbon Dioxide 25 Anion Gap 12.0 BUN 11 Creatinine 0.9 GFR Calculation 67 Glucose 113 H Calcium 9.3 Total Bilirubin 0.5 AST 18 ALT 13 Alkaline Phosphatase 93 Troponin T < 0.01 NT-Pro-B Natriuret Pep 71.4 Total Protein 7.0 Albumin 4.4 Globulin 2.6 Albumin/Globulin Ratio 1.7 Urine Color Urine Appearance Urine pH Ur Specific [place] Urine Protein Urine Glucose (UA) Urine Ketones Urine Occult Blood Urine Nitrate Urine Bilirubin Urine Urobilinogen Ur Leukocyte Esterase Urine RBC Urine WBC Ur Squamous Epith Cells Urine Bacteria Urine Mucus Ur Culture Indicated? SARS-CoV-2 (PCR) 09/25/20 21:44 WBC 11.7 H RBC 4.22 Hgb 13.5 Hct 39.7 MCV 94.1 MCH 32.0 MCHC 34.0 RDW 12.2 Plt Count 301 MPV 11.2 H Neut % (Auto) 48.7 Lymph % (Auto) 25.3 [place] % (Auto) 9.8 Eos % (Auto) 15.6 H Baso % (Auto) 0.6 Lymph # (Auto) 2.95 [place] # (Auto) 1.14 H Eos # (Auto) 1.82 H Baso # (Auto) 0.07 Absolute Neutrophils 5.70 VBG Lactic Acid Sodium Potassium Chloride Carbon Dioxide Anion Gap BUN Creatinine GFR Calculation Glucose Calcium Total Bilirubin AST ALT Alkaline Phosphatase Troponin T NT-Pro-B Natriuret Pep Total Protein Albumin Globulin Albumin/Globulin Ratio Urine Color Urine Appearance Urine pH Ur Specific [place] Urine Protein Urine Glucose (UA) Urine Ketones Urine Occult Blood Urine Nitrate Urine Bilirubin Urine Urobilinogen Ur Leukocyte Esterase Urine RBC Urine WBC Ur Squamous Epith Cells Urine Bacteria Urine Mucus Ur Culture Indicated? SARS-CoV-2 (PCR) A/P Narrative A/P Narrative: A: *AECOPD(on 3-4L O2@home): likely related to cleaning products *Acute hypoxic respiratory failure: -currenlty on 5L NC *Tobacco abuse: * P: -Steroids (wean), nebs/prn -IS/acapella -empiric azithromycin -RVP pending -Nicotine patch, smoking cessation counseling -ppx: Lovenox full code Time Spent With Patient Time: Total time spent is greater than 50% in coordination of care (as documented) at patient's floor/unit and/or counseling patient: QUALITY VTE Deep Vein Thrombosis/Pulmonary Embolism Present on Admission: No
[2020-09-26] MEDS ORDERED: POLYETHYLENE GLYCOL 3350 17 GM PACKET PO PRN (10:03)
[2020-09-26] MEDS ORDERED: SENNOSIDES 1 TABLET PO PRN (10:03)
[2020-09-26] MEDS ORDERED: ONDANSETRON 4 MG/2 ML VIAL IV PRN (10:03)
[2020-09-26] MEDS ORDERED: IPRATROPIUM/ALBUTEROL 3 ML AMPUL.NEB NEB PRN (10:03)
[2020-09-26] MEDS ORDERED: POTASSIUM CHLORIDE 40 MEQ in DEXTROSE 5% IN WATER 500 ML IV PRN (10:03)
[2020-09-26] MEDS ORDERED: POTASSIUM CHLORIDE 20 MEQ TABLET PO PRN ×2 (10:03)
[2020-09-26] MEDS ORDERED: MAGNESIUM SULFATE 2 GM/50 ML BAG IV PRN (10:03)
[2020-09-26] MEDS ORDERED: ACETAMINOPHEN 325 MG TABLET PO PRN (10:03)
[2020-09-26] MEDS: methylPREDNISolone SOD SUCC 125 MG/2 ML VIAL IV SCH ×3 (10:37→21:37)
[2020-09-26] MEDS: NICOTINE 7 MG PATCH TOPICAL SCH (10:37)
[2020-09-26] MEDS: Fluticasone-Umeclidin-Vilanter [Trelegy Ellipta] Inhaler INH SCH (10:42)
[2020-09-26] MEDS: IPRATROPIUM/ALBUTEROL 3 ML AMPUL.NEB NEB SCH ×3 (10:42→18:59)
[2020-09-26] MEDS: AZITHROMYCIN 500 MG in DEXTROSE 5% IN WATER 250 ML IV SCH (13:52)
[2020-09-26] MEDS: 0.9 % SODIUM CHLORIDE 10 ML SYRINGE IV SCH ×2 (13:53→21:37)
[2020-09-26] MEDS: LORazepam 2 MG/ML VIAL IV PRN ×2 (13:53→21:37)
[2020-09-26] MEDS: DOCUSATE SODIUM 100 MG CAPSULE PO SCH (21:37)
[2020-09-26] MEDS: MONTELUKAST 10 MG TABLET PO SCH (21:37)
[2020-09-27] MEDS: IPRATROPIUM/ALBUTEROL 3 ML AMPUL.NEB NEB SCH ×4 (01:52→19:07)
[2020-09-27] MEDS: 0.9 % SODIUM CHLORIDE 10 ML SYRINGE IV SCH ×3 (05:20→20:51)
[2020-09-27] MEDS: methylPREDNISolone SOD SUCC 125 MG/2 ML VIAL IV SCH (05:20)
[2020-09-27 06:31] LABS: Basophils # (Auto) 0.01 K/mcL (0.00-0.20); Basophils % (Auto) 0.1 % (0.0-2.0); Eosinophils # (Auto) 0 K/mcL (0.00-0.70); Eosinophils % (Auto) 0 % (0.0-7.0); Hemoglobin 12.1 g/dL (12.0-15.0); Lymphocytes % (Auto) 8.1 % (15.0-49.0); Mean Cell Volume 95.4 fL (80.0-100.0); Mean Corpuscular HGB Conc 32.7 g/dL (31.0-36.0); Mean Platelet Volume 11.1 fL (7.4-10.4); Monocytes # (Auto) 0.23 K/mcL (0.10-0.90); Monocytes % (Auto) 2.1 % (1.0-12.0); Neutrophils % (Auto) 89.7 % (38.0-78.0); Platelet Count 252 K/mcL (140-440); RBC 3.88 M/mcL (4.00-5.20); Red Cell Distribution Width 12.3 % (11.5-14.5); WBC 11.1 K/mcL (4.5-11.0)
[2020-09-27 07:10] LABS: ALT/SGPT 11 U/L (<40); AST/SGOT 14 U/L (<32); Albumin 3.9 gm/dL (3.2-5.2); Albumin/Globulin Ratio 1.6 (1.0-2.3); Alkaline Phosphatase 75 U/L (39-117); Bilirubin,Direct < 0.2 mg/dL (<0.3); Bilirubin,Total 0.3 mg/dL (0.1-1.0); Blood Urea Nitrogen 17 mg/dL (8-23); Calcium 9.2 mg/dL (8.6-10.4); Carbon Dioxide 25 mmol/L (22-30); Chloride 108 mmol/L (96-108); Globulin 2.4 gm/dL (2.2-3.7); Glomerular Filtration Rate 77; Glucose 151 mg/dL (70-105); Lactate Dehydrogenase 199 U/L (135-225); Phosphorous 4.5 mg/dL (2.5-4.5); Triglycerides 46 mg/dL (<150); Uric Acid 3.7 mg/dL (2.5-8.0)
--- NOTE | 2020-09-27 07:14 | Internal Med Progress Note ---
SUBJECTIVE Subjective Patient information: Note initiated : 09/27/20 at 7:11 am Service Date, if different from initiated Date: [] Patient: Nuzhat Donis 64 y/o F admitted on 09/26/20 for shortness of breath. Chief Complaint: [] Interval history: History of present illness: Ms. Donis is a 64 year old F Presents to the ED with worsening shortness of breath over the last several days. Been using her inhalers but no long-term improvement. She has a nonproductive cough, that is chronic and no new change.. Had oxygen saturations of 88% on room air in the ED. Which did improve temporarily with breathing treatments. However she became more short of breath and wheezy and oxygen went down to 86% ended up requiring oxygen to keep her sats greater than 90. Denies exposure to cleaning products recently. Covid screen in the ED was negative. Chest x-ray unremarkable except for COPD. She was mildly tachycardic and tachypneic. 09/27 Feeling better today. Cough improved. Dyspnea improving. She feels she is maybe 70% back to baseline. Review of Systems: denies headache/fever/chills/nausea/vomiting/chest or abdominal pain/diarrhea. Otherwise see above. Constitutional Vitals: Vital Signs Temp Pulse Resp BP Pulse Ox 97.9 F 89 18 125/70 94 09/27/20 04:00 09/27/20 04:00 09/27/20 04:00 09/27/20 04:00 09/27/20 04:00 Period Temp Pulse Resp BP Sys/Gorman Pulse Ox Last 24 Hr 96.8 F-99.0 F 89-103 18-35 111-155/60-86 86-96 Intake and Output 09/26/20 09/27/20 09/27/20 21:59 05:59 13:59 Intake Total 610 Balance 610 Weight 55.508 kg Intake & Output: Intake & Output 09/26/20 09/27/20 09/27/20 21:59 05:59 13:59 Intake Total 610 Balance 610 Weight 55.508 kg Intake: IV 250 Zithromax 500 mg In Dextrose 5% 250 in Water 250 ml @ 250 mls/hr IV Q24H [facility] Rx#:[id number] Oral 360 Other: Meal Dinner Percent of Meal Consumed 100% Feeding Ability Independent # Voids 1 1 Exam: General: Alert, Awake, No acute Distress Eyes/N/T: EOMI, , Head/Neck: neck supple, CV: RRR, No murmurs, Pulm: Diminished bilaterally, mild b/l wheeze, prolonged expiratory phase, abd: soft, nontender, +BS x4 Ext: no clubbing/cyanosis/edema Neuro: Alert, no focal deficits, moves all extremities, Skin: warm/dry OBJ DATA Labs CBC & Chem 7: 09/27/20 04:47 09/27/20 04:47 Labs: Abnormal Lab Results 09/27/20 09/27/20 09/26/20 04:47 04:47 01:36 WBC 11.1 H RBC 3.88 L MPV 11.1 H Neut % (Auto) 89.7 H Lymph % (Auto) 8.1 L Eos % (Auto) Lymph # (Auto) 0.90 L [place] # (Auto) Eos # (Auto) Absolute Neutrophils 9.91 H VBG Lactic Acid Glucose 151 H Urine Mucus Few A 09/25/20 09/25/20 09/25/20 21:44 21:44 21:44 WBC 11.7 H RBC MPV 11.2 H Neut % (Auto) Lymph % (Auto) Eos % (Auto) 15.6 H Lymph # (Auto) [place] # (Auto) 1.14 H Eos # (Auto) 1.82 H Absolute Neutrophils VBG Lactic Acid 2.3 H Glucose 113 H Urine Mucus Meds: Medications Acetaminophen (Tylenol) 650 mg PO Q6HP PRN PRN Reason: PAIN/FEVER > 101 Albuterol/Ipratropium (Duoneb) 3 ml NEB Q4HP PRN PRN Reason: Shortness Of Breath Albuterol/Ipratropium (Duoneb) 3 ml NEB Q6HRT [facility] Last Admin: 09/27/20 01:52 Dose: Not Given Documented by: Docusate Sodium (Colace) 100 mg PO BID [facility] Last Admin: 09/26/20 21:37 Dose: Not Given Documented by: Enoxaparin Sodium (Lovenox) 40 mg SQ DAILY [facility] Potassium Chloride 40 meq/ (Dextrose) 520 mls @ 130 mls/hr IV UD PRN PRN Reason: Potassium < 3 Magnesium Sulfate (Magnesium Sulfate) 2 gm in 50 mls @ 50 mls/hr IV UD PRN PRN Reason: Magnesium </= 1.6 Azithromycin 500 mg/ Dextrose 250 mls @ 250 mls/hr IV Q24H [facility]; Protocol Stop: 09/28/20 14:59 Last Infusion: 09/26/20 14:52 Dose: Infused Documented by: Lorazepam (Ativan) 0.5 mg IV Q6HP PRN PRN Reason: ANXIETY/SEDATION Last Admin: 09/26/20 21:37 Dose: 0.5 mg Documented by: Methylprednisolone Sodium Succinate (Solu-Medrol) 80 mg IV Q8 [facility] Last Admin: 09/27/20 05:20 Dose: 80 mg Documented by: Montelukast Sodium (Singular) 10 mg PO QHS [facility] Last Admin: 09/26/20 21:37 Dose: 10 mg Documented by: Nicotine (Nicoderm) 7 mg TOPICAL DAILY@1000 [facility] Last Admin: 09/26/20 10:37 Dose: 7 mg Documented by: Ondansetron HCl (Zofran) 4 mg IV Q4HP PRN PRN Reason: Nausea And Vomiting Fluticasone- Umeclidin-Vilanter [ Trelegy Ellipta] Inhaler 1 dose INH Q24H [facility] Last Admin: 09/26/20 10:42 Dose: 1 dose Documented by: Polyethylene Glycol (Miralax) 17 gm PO DAILYP PRN PRN Reason: Constipation Potassium Chloride (Kdur) 40 meq PO UD PRN PRN Reason: Potssium is 3-3.5 Potassium Chloride (Kdur) 40 meq PO UD PRN PRN Reason: Potassium < 3 Senna (Senokot) 2 tab PO DAILYP PRN PRN Reason: Constipation Sodium Chloride (Saline Flush) 10 ml IV Q8 [facility] Last Admin: 09/27/20 05:20 Dose: 10 ml Documented by: A/P Narrative A/P Narrative: A: *AECOPD(on 3-4L O2@home): -rvp/covid neg *Acute hypoxic respiratory failure: -down to 4L NC, *Tobacco abuse: * P: -Steroids (wean), nebs/prn -IS/acapella -empiric azithromycin -Nicotine patch, smoking cessation counseling -ppx: Lovenox full code Time Spent With Patient Time: Total time spent is greater than 50% in coordination of care (as documented) at patient's floor/unit and/or counseling patient: QUALITY VTE Deep Vein Thrombosis/Pulmonary Embolism Present on Admission: No
[2020-09-27] MEDS: DOCUSATE SODIUM 100 MG CAPSULE PO SCH ×2 (08:41→20:51)
[2020-09-27] MEDS: Fluticasone-Umeclidin-Vilanter [Trelegy Ellipta] Inhaler INH SCH (08:42)
[2020-09-27] MEDS: AZITHROMYCIN 500 MG in DEXTROSE 5% IN WATER 250 ML IV SCH (08:42)
[2020-09-27] MEDS ORDERED: ENOXAPARIN 40 MG/0.4 ML SYRINGE SQ SCH (09:00)
[2020-09-27] MEDS: NICOTINE 7 MG PATCH TOPICAL SCH (10:03)
[2020-09-27] MEDS: LORazepam 2 MG/ML VIAL IV PRN (10:03)
--- NOTE | 2020-09-27 10:16 | Discharge Summary ---
Discharge Provider Provider Patient information: Note initiated : 09/27/20 at 10:15 am Service Date, if different from initiated Date: [] Patient: Nuzhat Donis 64 y/o F admitted on 09/26/20 for shortness of breath. Chief Complaint: [] Date of admission: 09/26/20 09:59 Discharge date: 09/28/20 Primary care physician: Jhoana Lopez Consults: 09/26/20 07:27 Consult to Physician [CONS] Stat Comment: Consulting Provider: Bj Gann Reason For Exam: Physician to Consult Discharge Meds Discharge Medications Home Medications montelukast 10 mg PO QHS 07/26/20 [History Confirmed 09/26/20 Last Taken 21:00] ipratropium-albuterol 3 ml INHALATION Q4H PRN 08/07/20 [History Confirmed 09/26/20 Last Taken 09/25/20 09:00] oxygen 3 - 4 l INTRANASAL CONT 08/14/20 [History Confirmed 09/26/20 Last Taken U nknown] albuterol sulfate 90 mcg/actuation aerosol inhaler 1 - 2 puff INHALATION Q4H PRN #18 g 08/29/20 [Rx Confirmed 09/26/20 Last Taken 09/25/20 09:00] fluticasone fur. 100 mcg-umeclid 62.5 mcg-vilant 25 mcg inhalat.powder 1 inh INHALATION Q24H #60 each 09/19/20 [Rx Confirmed 09/26/20 Last Taken 09/25/20 09:00] prednisone 40 mg PO QDAY #1 tab 09/28/20 [Rx Last Taken Unknown] COURSE Hospital Course Hospital course: History of present illness: Ms. Donis is a 64 year old F Presents to the ED with worsening shortness of breath over the last several days. Been using her inhalers but no long-term improvement. She has a nonproductive cough, that is chronic and no new change.. Had oxygen saturations of 88% on room air in the ED. Which did improve temporarily with breathing treatments. However she became more short of breath and wheezy and oxygen went down to 86% ended up requiring oxygen to keep her sats greater than 90. Denies exposure to cleaning products recently. Covid screen in the ED was negative. Chest x-ray unremarkable except for COPD. She was mildly tachycardic and tachypneic. 09/27 Feeling better today. Cough improved. Dyspnea improving. She feels she is maybe 70% back to baseline. 09/28 Stable overnight. On home oxygen requirement. Patient is scheduled point with Dr. Aldana at 10:00 and will discharge straight to Dr. Aldana appointment A: *AECOPD(on 3-4L O2@home), Advanced: *Acute hypoxic respiratory failure: *Tobacco abuse: Discharge diagnosis: Advanced COPD with exacerbation acute hypoxic respite failure Secondary discharge diagnosis: Tobacco abuse Time Spent with Patient Time attestation: Total time spent providing and/or coordinating discharge services: Time spent: Greater than 30 minutes EXAM Constitutional Vitals: Temp Pulse Resp BP Pulse Ox 98.7 F 95 H 24 H 116/67 88 L 09/27/20 08:57 09/27/20 08:57 09/27/20 08:57 09/27/20 08:57 09/27/20 08:57 Discharge Data Data Completed and Pending Labs on day of discharge: Labs from last 24 hours 09/27/20 09/27/20 09/27/20 04:47 04:47 04:47 WBC 11.1 H RBC 3.88 L Hgb 12.1 Hct 37.0 MCV 95.4 MCH 31.2 MCHC 32.7 RDW 12.3 Plt Count 252 MPV 11.1 H Neut % (Auto) 89.7 H Lymph % (Auto) 8.1 L [place] % (Auto) 2.1 Eos % (Auto) 0 Baso % (Auto) 0.1 Lymph # (Auto) 0.90 L [place] # (Auto) 0.23 Eos # (Auto) 0 Baso # (Auto) 0.01 Absolute Neutrophils 9.91 H Sodium 142 Potassium 4.5 Chloride 108 Carbon Dioxide 25 Anion Gap 9.0 BUN 17 Creatinine 0.8 GFR Calculation 77 Glucose 151 H Uric Acid 3.7 Calcium 9.2 Phosphorus 4.5 Magnesium 2.2 Total Bilirubin 0.3 Direct Bilirubin < 0.2 GGT 10 AST 14 ALT 11 Alkaline Phosphatase 75 Lactate Dehydrogenase 199 Total Protein 6.3 Albumin 3.9 Globulin 2.4 Albumin/Globulin Ratio 1.6 Triglycerides 46 Procalcitonin Pending Discharge Plan Patient/Caregiver Discharge Instructions Activity: increase activity as tolerated Diet: Regular Diet Instructions: Albuterol (By breathing), COPD (Chronic Obstructive Pulmonary Disease) (GEN) Activity Restrictions/Additional Instructions: Use your inhaler whenever needed. Increase your activity as tolerated. Follow up with your Ammunition Officer and Primary Care Doctor. [facility] will contact you after discharge. If you have any questions call This discharge packet is provided to you to help keep you informed about your care. We want to ensure you get everything you need when you go home. You will also be receiving a call from us in a few days to follow up with you and see how you are doing since your discharge. This gives us a chance to listen to any concerns you maybe experiencing since you were discharged or any additional needs you may have, as well as providing us feedback on your care experience. We strive to always provide excellent care and thank you for your feedback and for choosing [facility]. Prescriptions: New prednisone 10 mg tablet 40 mg PO QDAY Qty: 1 RF: 0 Continued Trelegy Ellipta 100-62.5-25 mcg blister with device 1 inh INHALATION Q24H Qty: 60 RF: 6 oxygen 3 - 4 l intranasal CONT RF: 0 albuterol sulfate 90 mcg/actuation HFA aerosol inhaler 1 - 2 puff inhalation Q4H PRN (Reason: Wheezing) Qty: 18 RF: 1 montelukast 10 mg Tablet 10 mg PO QHS RF: 0 ipratropium-albuterol 0.5 mg-3 mg(2.5 mg base)/3 mL Solution For Nebulization 3 ml INHALATION Q4H PRN (Reason: Shortness Of Breath) RF: 0 Follow Up Plan Follow up with: Jhoana Lopez MD [Primary Care Provider] - (Please call to schedule an appointment) Jacob Aldana MD [Physician] - 09/28/20 10:00 am Patient Disposition: Home, Self-Care Prognosis: Undetermined Overall status at discharge: patient is progressing back to baseline Discharge Orders: Discharge Order (Routine); Ordered 09/28/20 Ordered By: Bj Gann [facility] Deep Vein Thrombosis/Pulmonary Embolism Present on Admission: No
[2020-09-27] MEDS: methylPREDNISolone SOD SUCC 40 MG/ML VIAL IV SCH ×2 (13:24→21:48)
[2020-09-27] MEDS: BUDESONIDE 0.5 MG/2 ML AMPUL.NEB NEB SCH (19:07)
[2020-09-27] MEDS: MONTELUKAST 10 MG TABLET PO SCH (20:51)
[2020-09-28] MEDS: IPRATROPIUM/ALBUTEROL 3 ML AMPUL.NEB NEB SCH ×2 (01:01→07:40)
[2020-09-28] MEDS: methylPREDNISolone SOD SUCC 40 MG/ML VIAL IV SCH (05:37)
[2020-09-28] MEDS: 0.9 % SODIUM CHLORIDE 10 ML SYRINGE IV SCH (05:37)
[2020-09-28] MEDS: BUDESONIDE 0.5 MG/2 ML AMPUL.NEB NEB SCH (07:40)
[2020-09-28] MEDS: AZITHROMYCIN 500 MG in DEXTROSE 5% IN WATER 250 ML IV SCH (08:32)
[2020-09-28] MEDS: LORazepam 2 MG/ML VIAL IV PRN (08:50)
[2020-09-28] MEDS: DOCUSATE SODIUM 100 MG CAPSULE PO SCH (08:51)
[2020-09-28] MEDS: NICOTINE 7 MG PATCH TOPICAL SCH (08:51)
== END 2020-09-28 09:43 | disposition home or self-care (01) | DRG 190 ==
LOC: ED 21:24 → ICU 09-26 08:37 → INTOOBSV 09-26 08:37
PROVIDERS: ADMIT Internal Medicine; ATTEND Internal Medicine

== ENCOUNTER 2020-11-28 11:28 | Inpatient (IN) ==
[2020-11-28] MEDS ORDERED: methylPREDNISolone SOD SUCC 125 MG/2 ML VIAL IV ONE (11:35)
[2020-11-28] MEDS ORDERED: IPRATROPIUM/ALBUTEROL 3 ML AMPUL.NEB NEB ONE (11:35)
--- NOTE | 2020-11-28 11:49 | Emergency Department Note ---
SOB HPI General Chief Complaint: Shortness of Breath/Dyspnea Stated Complaint: shortness of breath Time Seen by Provider: 11/28/20 11:35 Source: patient Mode of arrival: ambulatory Limitations: no limitations History of Present Illness HPI Narrative: This is a 65-year-old female with O2 dependent end-stage COPD on 3 L at home with worsening shortness of breath over the last 10 days. She was admitted back in September for COPD exacerbation and was placed on a long steroid taper. She finished her last dose of steroids 10 days ago and has since been having increasing shortness of breath. She sees Dr. Aldana as her extractor operator and he notes severe COPD with good response to bronchodilators on previous PFT. The forced vital capacity is severely reduced at 41% of predicted. The FEV1 further reduced at 30% of predicted. DLCO is 26% of predicted. She currently denies fevers chills or sweats. She has been increasing the use of her DuoNeb from every 6 hours to every 4 hours without relief. She was also prescribed budesonide nebulizers last week by Dr. Aldana for increasing shortness of breath, which she states has not been effective. Her rapid Covid screen is negative. She notes severe allergy to Trelegy inhalers with throat tightening and worsening shortness of breath. Related Data Home Medications Medication Instructions Recorded Confirmed montelukast 10 mg PO QHS 07/26/20 10/25/20 ipratropium-albuterol 3 ml INHALATION Q4H PRN 08/07/20 10/25/20 oxygen 3 - 4 l INTRANASAL CONT 08/14/20 10/25/20 Previous Rx's Medication Instructions Recorded albuterol sulfate 90 mcg/actuation 1 - 2 puff INHALATION Q4H PRN #18 g 08/29/20 aerosol inhaler Shower chair #1 ea 09/28/20 prednisone 20 mg tablet See Rx Instructions PO QDAY #63 tab 10/11/20 budesonide 0.5 mg/2 mL suspension 0.5 mg INHALATION BID #60 ml 11/21/20 for nebulization Allergies Allergy/AdvReac Type Severity Reaction Status Date / Time lactose Allergy Severe Difficulty Verified 11/28/20 11:30 Breathing shrimp Allergy Severe Difficulty Verified 11/28/20 11:30 Breathing [id number] AdvReac Severe "choking Verified 11/28/20 11:30 [From Trelegy Ellipta] feeling" "can't swallow" umeclidinium AdvReac Severe "choking Verified 11/28/20 11:30 [From Trelegy Ellipta] feeling" "can't swallow" vilanterol AdvReac Severe "choking Verified 11/28/20 11:30 [From Trelegy Ellipta] feeling" "can't swallow" aspirin AdvReac Mild Gastrointestinal Verified 11/28/20 11:30 Upset Review of Systems ROS ROS Narrative: Narrative: All systems ED: reviewed and negative except as stated. PFSH Narrative Patient History Narrative: Narrative: Medical/Surgical/Family History All Active Problems Respiratory failure (Acute) Nocturnal hypoxia (Acute) Infiltrate of lung present on chest x-ray (Acute) Hypoxia (Chronic) Candidiasis of mouth (Acute) Chronic obstructive lung disease (Chronic) Tuberculosis (Acute ~1963) Tobacco dependence syndrome (Acute) Hypoxia (Acute) COPD exacerbation (Acute) Abnormal chest x-ray (Acute) Exercise hypoxemia (Acute) Cigarette smoker (Chronic) Medical History Abnormal chest x-ray (Acute) Candidiasis of mouth (Acute) Chronic obstructive lung disease (Chronic) Cigarette smoker (Chronic) 2-3 per day (07-25-2019) COPD exacerbation (Acute) Exercise hypoxemia (Acute) History of cervical cancer (Acute) 1995 stage 4 History of tuberculosis (Acute) 1965 Hypoxia (Chronic) Infiltrate of lung present on chest x-ray (Acute) Nocturnal hypoxia (Acute) Pleural effusion (Resolved) Tobacco dependence syndrome (Acute) Tuberculosis (Acute ~1963) Treated INH and one other med for one year Surgical History History of tonsillectomy (Acute) History of tubal ligation (Acute) Family History Sister Cancer Overdose age 35 Brother Overdose age 40 Social History Smoking Status: Current every day smoker Alcohol Intake Frequency: 0-2 drinks per day (1 drink of vodka per night; weekends sometimes 2 (08/05/2020)) Substance Use: former substance user Exam Narrative Narrative: General: AOx3, dyspneic and tripoding in moderate distress. HEENT: PERRLA, EOMI, normocephalic. Dry mucous membranes. Normal facies and normal dentition. Chest: Symmetric Respiratory: Expiratory wheezes throughout. Diminished breath sounds throughout. Labored breathing at 34 breaths/min. Unable to speak in full sentences. Heart: Tachycardic and regular rhythm, no murmurs/clicks/rubs. Abdomen: Non-tender, Non distended Extremities: Warm and well perfused. No edema. DP 2+ bilaterally. No venous stasis. No cyanosis. Neuro: No focal deficits. Cranial nerves II-XII normal. Skin: Warm dry, no rashes or lesions, no cyanosis. Psych: Anxious mood and affect Heme/Lymph: No bruising General Limitations: no limitations Course Course Course Narrative: 65-year-old female with severe oxygen dependent COPD is seen in the emergency department for COPD exacerbation. Reevaluation(s) Reevaluation #1: Basic labs, chest x-ray, lactic acid. Will give 125 mg of IV methylprednisolone now and Xopenex DuoNebs given her tachycardia. We will get a sputum sample and start her on IV azithromycin for anti-inflammatory benefit. She currently is not having increasing oxygen requirements, however, she is quite tachypneic with greater than 30 breaths/min. Reevaluation #2: Lactic acid is elevated at 2.3, will check an ABG. Chest x-ray without infiltrates. Patient reports feeling improved with DuoNeb and IV methylprednisolone. No increasing oxygen requirements at this time. Remains tachypneic with respiratory rates 30 to 35 breaths/min. Reevaluation #3: ABG is within normal limits, pH 7.4, PCO2 45, PO2 108 on 3 L nasal cannula. Hemoglobin is 12.4. The patient is still tachypneic and having difficulty speaking in full sentences. She reports feeling much better and expresses a desire to discharge home. She was challenged in the room with ADLs and became tachypneic to the 40s with coughing fits and increasing tripoding. Auscultation of her lungs showed significant expiratory wheezing throughout. Will order continuous nebulizer treatment now to see if we can improve her wheezing and will plan to admit for COPD exacerbation. Vital Signs Vital signs: Vital Signs Pulse Rate 110 H 11/28/20 11:28 Respiratory Rate 30 H 11/28/20 11:28 Blood Pressure 158/81 11/28/20 11:28 Pulse Oximetry (%) 93 11/28/20 11:28 Pulse Rate 103 H 11/28/20 16:30 Respiratory Rate 22 11/28/20 16:30 Blood Pressure 120/78 11/28/20 16:30 Pulse Oximetry (%) 95 11/28/20 16:30 MDM MDM Narrative Medical decision making narrative: Acute COPD exacerbation At risk for acute hypoxic respiratory failure The patient is only mildly responded to interventions here in the ER to include 125 IV methyl prednisolone, 500 mg IV azithromycin, and duo nebs with continuous nebulizers. She remains quite tachypneic with poor respiratory reserve and is at risk for respiratory failure. I discussed case with the hospitalist who agrees to admission. Her extractor operator, Dr. Aldana will be on board for consult severity of her exacerbation and recurrence. -Sputum culture is pending -CODE STATUS is discussed with the patient and she wishes to be full code, yes to intubation Lab Data Result diagrams: 11/28/20 11:41 11/28/20 11:40 Labs: Lab Results 11/28/20 11/28/20 Range/Units 11:40 11:41 WBC 8.5 (4.5-11.0) K/mcL RBC 4.06 (4.00-5.20) M/mcL Hgb 12.7 (12.0-15.0) g/dL Hct 38.3 (36.0-48.0) % MCV 94.3 (80.0-100.0) fL MCH 31.3 (26.0-34.0) pg MCHC 33.2 (31.0-36.0) g/dL RDW 12.4 (11.5-14.5) % Plt Count 347 (140-440) K/mcL MPV 10.5 H (7.4-10.4) fL Neut % (Auto) 65.7 (38.0-78.0) % Lymph % (Auto) 15.9 (15.0-49.0) % [place] % (Auto) 9.6 (1.0-12.0) % Eos % (Auto) 8.2 H (0.0-7.0) % Baso % (Auto) 0.6 (0.0-2.0) % Lymph # (Auto) 1.36 L (1.50-4.80) K/mcL [place] # (Auto) 0.82 (0.10-0.90) K/mcL Eos # (Auto) 0.70 (0.00-0.70) K/mcL Baso # (Auto) 0.05 (0.00-0.20) K/mcL Absolute Neutrophils 5.60 (1.80-8.00) K/mcL Sodium 141 (133-145) mmol/L Potassium 4.0 (3.3-5.1) mmol/L Chloride 104 (96-108) mmol/L Carbon Dioxide 26 (22-30) mmol/L Anion Gap 11.0 (8.0-16.0) BUN 9 (8-23) mg/dL Creatinine 0.9 (0.6-1.1) mg/dL GFR Calculation 67 Glucose 103 (70-105) mg/dL Calcium 9.5 (8.6-10.4) mg/dL Total Bilirubin 0.6 (0.1-1.0) mg/dL AST 20 (<32) U/L ALT 13 (<40) U/L Alkaline Phosphatase 110 (39-117) U/L Total Protein 7.7 (5.9-8.4) gm/dL Albumin 4.3 (3.2-5.2) gm/dL Globulin 3.4 (2.2-3.7) gm/dL Albumin/Globulin Ratio 1.3 (1.0-2.3) Discharge Plan Patient/Caregiver Discharge Instructions Pt seen by RESEARCH AND DEVELOPMENT CHEMIST/PA only: Yes Clinical Impression: COPD exacerbation, Respiratory failure Patient Disposition: Xfer As Inpt ([facility]) Follow up with: Jhoana Lopez MD [Primary Care Provider] - Prescriptions: No Action budesonide 0.5 mg/2 mL suspension for nebulization 0.5 mg INHALATION BID Qty: 60 RF: 12 oxygen 3 - 4 l intranasal CONT RF: 0 albuterol sulfate 90 mcg/actuation HFA aerosol inhaler 1 - 2 puff inhalation Q4H PRN (Reason: Wheezing) Qty: 18 RF: 1 (DME) Shower chair Qty: 1 RF: 0 prednisone 20 mg tablet See Rx Instructions PO QDAY Qty: 63 RF: 0 montelukast 10 mg Tablet 10 mg PO QHS RF: 0 ipratropium-albuterol 0.5 mg-3 mg(2.5 mg base)/3 mL Solution For Nebulization 3 ml INHALATION Q4H PRN (Reason: Shortness Of Breath) RF: 0
[2020-11-28 12:37] LABS: Basophils # (Auto) 0.05 K/mcL (0.00-0.20); Basophils % (Auto) 0.6 % (0.0-2.0); Eosinophils % (Auto) 8.2 % (0.0-7.0); Hematocrit 38.3 % (36.0-48.0); Hemoglobin 12.7 g/dL (12.0-15.0); Lymphocytes # (Auto) 1.36 K/mcL (1.50-4.80); Lymphocytes % (Auto) 15.9 % (15.0-49.0); Mean Cell Volume 94.3 fL (80.0-100.0); Mean Corpuscular HGB Conc 33.2 g/dL (31.0-36.0); Mean Platelet Volume 10.5 fL (7.4-10.4); Monocytes # (Auto) 0.82 K/mcL (0.10-0.90); Monocytes % (Auto) 9.6 % (1.0-12.0); Neutrophils % (Auto) 65.7 % (38.0-78.0); Platelet Count 347 K/mcL (140-440); RBC 4.06 M/mcL (4.00-5.20); Red Cell Distribution Width 12.4 % (11.5-14.5); WBC 8.5 K/mcL (4.5-11.0)
[2020-11-28] MEDS ORDERED: LEVALBUTEROL 1.25 MG/3 ML AMPUL.NEB NEB PRN (12:37)
[2020-11-28] MEDS ORDERED: AZITHROMYCIN 500 MG in DEXTROSE 5% IN WATER 250 ML IV ONE (12:38)
[2020-11-28] MEDS ORDERED: LORazepam 2 MG/ML VIAL IV ONE (12:38)
[2020-11-28 12:58] LABS: ALT/SGPT 13 U/L (<40); AST/SGOT 20 U/L (<32); Albumin 4.3 gm/dL (3.2-5.2); Albumin/Globulin Ratio 1.3 (1.0-2.3); Alkaline Phosphatase 110 U/L (39-117); Bilirubin,Total 0.6 mg/dL (0.1-1.0); Blood Urea Nitrogen 9 mg/dL (8-23); Calcium 9.5 mg/dL (8.6-10.4); Carbon Dioxide 26 mmol/L (22-30); Chloride 104 mmol/L (96-108); Globulin 3.4 gm/dL (2.2-3.7); Glomerular Filtration Rate 67; Glucose 103 mg/dL (70-105)
--- NOTE | 2020-11-28 13:00 | XRay Report ---
HISTORY: COPD with worsening dyspnea FINDINGS: Lungs are hyperinflated due to moderate emphysema. There is no evidence of pneumonia, mass or congestive heart failure. The heart size is normal. No pleural effusion is present and there is no apparent adenopathy. Comparison with the prior exam from 09/25/20 shows no change. IMPRESSION: Stable emphysema Interpreted and Authenticated by: Jett Parisi 11/28/20
[2020-11-28] MEDS ORDERED: CALCIUM CARBONATE 500 MG TAB.CHEW CHEWED ONE (13:55)
[2020-11-28] MEDS ORDERED: ALBUTEROL SULFATE 5 MG/ML NEB SOLUTION BOTTLE NEB ONE (15:30)
--- NOTE | 2020-11-28 17:19 | Internal Med History&Physical ---
HPI History of Present Illness Patient information: Note initiated : 11/28/20 at 5:14 pm Service Date, if different from initiated Date: [] Patient: Nuzhat Donis a 65 y/o F admitted on for shortness of breath. Chief Complaint: [] History of present illness: Ms. Donis is a 65 year old F In the ED she seemed to be maintaining sats on 3 to 4 L of oxygen she is typically on least 3 at home. However she was still quite tachypneic. And with any exertion she became quite labored and is tripoding. Given the concern for exhaustion and rapid deterioration, admission was requested. This is also discussed with the thermite bomb loader from the ED. She has a cough of productive sputum. She states that the symptoms happen every time she finishes her steroid course. She was on a prolonged taper the last time and just finished 10 days ago. She states that several days after that she started getting bad again. She has cough and increased shortness of breath and wheezing. First ABG within normal limits Review of Systems: Pertinent positives as above. Denies headache/fever/chills/nausea/vomiting/chest or abdominal pain//diarrhea. Many 10 point review of system reviewed negative PFSH PFSH All Active Problems Nocturnal hypoxia (Acute) Infiltrate of lung present on chest x-ray (Acute) Hypoxia (Chronic) Candidiasis of mouth (Acute) Chronic obstructive lung disease (Chronic) Tuberculosis (Acute ~1963) Tobacco dependence syndrome (Acute) Hypoxia (Acute) COPD exacerbation (Acute) Abnormal chest x-ray (Acute) Exercise hypoxemia (Acute) Cigarette smoker (Chronic) Medical History Abnormal chest x-ray (Acute) Candidiasis of mouth (Acute) Chronic obstructive lung disease (Chronic) Cigarette smoker (Chronic) 2-3 per day (07-25-2019) COPD exacerbation (Acute) Exercise hypoxemia (Acute) History of cervical cancer (Acute) 1995 stage 4 History of tuberculosis (Acute) 1965 Hypoxia (Chronic) Infiltrate of lung present on chest x-ray (Acute) Nocturnal hypoxia (Acute) Pleural effusion (Resolved) Tobacco dependence syndrome (Acute) Tuberculosis (Acute ~1963) Treated INH and one other med for one year Surgical History History of tonsillectomy (Acute) History of tubal ligation (Acute) Family History Sister Cancer Overdose age 35 Brother Overdose age 40 Social History (Updated 11/28/20 @ 17:16 by Bj Gann DO) marital status: single occupational status: 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 smoking status: Former smoker smoking status start date: 11/10/69 alcohol intake frequency: 0-2 drinks per day (1 drink of vodka per night; weekends sometimes 2 (08/05/2020)) substance use type: former substance user MEDS/ALLERGIES Home Medications and Allergies Home Medications Medication Instructions Recorded Confirmed Type montelukast 10 mg PO QHS 07/26/20 10/25/20 History ipratropium-albuterol 3 ml INHALATION Q4H PRN 08/07/20 10/25/20 History oxygen 3 - 4 l INTRANASAL CONT 08/14/20 10/25/20 History albuterol sulfate 90 mcg/actuation 1 - 2 puff INHALATION Q4H PRN #18 g 08/29/20 10/25/20 Rx aerosol inhaler Shower chair #1 ea 09/28/20 10/25/20 Rx prednisone 20 mg tablet See Rx Instructions PO QDAY #63 tab 10/11/20 10/25/20 Rx budesonide 0.5 mg/2 mL suspension 0.5 mg INHALATION BID #60 ml 11/21/20 Rx for nebulization Allergies Allergy/AdvReac Type Severity Reaction Status Date / Time lactose Allergy Severe Difficulty Verified 11/28/20 11:30 Breathing shrimp Allergy Severe Difficulty Verified 11/28/20 11:30 Breathing [id number] AdvReac Severe "choking Verified 11/28/20 11:30 [From Trelegy Ellipta] feeling" "can't swallow" umeclidinium AdvReac Severe "choking Verified 11/28/20 11:30 [From Trelegy Ellipta] feeling" "can't swallow" vilanterol AdvReac Severe "choking Verified 11/28/20 11:30 [From Trelegy Ellipta] feeling" "can't swallow" aspirin AdvReac Mild Gastrointestinal Verified 11/28/20 11:30 Upset EXAM Constitutional Vitals: Pulse Resp BP Pulse Ox 103 H 22 120/78 95 11/28/20 16:30 11/28/20 16:30 11/28/20 16:30 11/28/20 16:30 Exam: General: Alert, Awake, No acute Distress Eyes/N/T: EOMI, PERRL, Head/Neck: neck supple, normocephalic atraumatic CV: Regular but tachycardic, No murmurs, normal s1/s2 Pulm: Diminished and wheezing b/l, labored, conversational dyspnea Abd: soft, nontender, +BS x4 Ext: no clubbing/cyanosis/edema Neuro: Alert, no focal deficits, moves all extremities, CN 2-12 grossly intact, symmetrical strength b/l upper/lower, sensations intact b/l upper/lower Skin: warm/dry DATA Data Completed and Pending Labs: Labs from last 24 hours 11/28/20 11/28/20 11:41 11:40 WBC 8.5 RBC 4.06 Hgb 12.7 Hct 38.3 MCV 94.3 MCH 31.3 MCHC 33.2 RDW 12.4 Plt Count 347 MPV 10.5 H Neut % (Auto) 65.7 Lymph % (Auto) 15.9 [place] % (Auto) 9.6 Eos % (Auto) 8.2 H Baso % (Auto) 0.6 Lymph # (Auto) 1.36 L [place] # (Auto) 0.82 Eos # (Auto) 0.70 Baso # (Auto) 0.05 Absolute Neutrophils 5.60 Sodium 141 Potassium 4.0 Chloride 104 Carbon Dioxide 26 Anion Gap 11.0 BUN 9 Creatinine 0.9 GFR Calculation 67 Glucose 103 Calcium 9.5 Total Bilirubin 0.6 AST 20 ALT 13 Alkaline Phosphatase 110 Total Protein 7.7 Albumin 4.3 Globulin 3.4 Albumin/Globulin Ratio 1.3 A/P Narrative A/P Narrative: A: *AECOPD(on 3-4L O2@home), Severe COPD: -rvp/covid *Acute hypoxic respiratory failure: -was on 6L in ED *quit smoking last Fall: P: -Steroids (wean), nebs including pulmicort/prn -IS/acapella, wean O2, prn NIV -empiric azithromycin -Pulmonology consult, pt seems to be steroid dependent -check RVP/covid -ppx: Lovenox full code Time Spent With Patient Time: Total time spent is greater than 50% in coordination of care (as documented) at patient's floor/unit and/or counseling patient:
--- NOTE | 2020-11-28 18:21 | Emergency Department Note ---
SOB HPI General Chief Complaint: Shortness of Breath/Dyspnea Stated Complaint: shortness of breath Time Seen by Provider: 11/28/20 11:35 Source: patient Mode of arrival: ambulatory Limitations: no limitations History of Present Illness HPI Narrative: Narrative: See history and physical dictated by MAMI Reynaga, which I have reviewed and agree with. This patient has had increasing shortness of breath and has had multiple treatments, has failed outpatient and ED management and needs to be admitted for treatment of acute exacerbation of COPD with hypoxia, intolerant to activity, etc. Related Data Home Medications Medication Instructions Recorded Confirmed montelukast 10 mg PO QHS 07/26/20 10/25/20 ipratropium-albuterol 3 ml INHALATION Q4H PRN 08/07/20 10/25/20 oxygen 3 - 4 l INTRANASAL CONT 08/14/20 10/25/20 Previous Rx's Medication Instructions Recorded albuterol sulfate 90 mcg/actuation 1 - 2 puff INHALATION Q4H PRN #18 g 08/29/20 aerosol inhaler Shower chair #1 ea 09/28/20 prednisone 20 mg tablet See Rx Instructions PO QDAY #63 tab 10/11/20 budesonide 0.5 mg/2 mL suspension 0.5 mg INHALATION BID #60 ml 11/21/20 for nebulization Allergies Allergy/AdvReac Type Severity Reaction Status Date / Time lactose Allergy Severe Difficulty Verified 11/28/20 11:30 Breathing shrimp Allergy Severe Difficulty Verified 11/28/20 11:30 Breathing [id number] AdvReac Severe "choking Verified 11/28/20 11:30 [From Trelegy Ellipta] feeling" "can't swallow" umeclidinium AdvReac Severe "choking Verified 11/28/20 11:30 [From Trelegy Ellipta] feeling" "can't swallow" vilanterol AdvReac Severe "choking Verified 11/28/20 11:30 [From Trelegy Ellipta] feeling" "can't swallow" aspirin AdvReac Mild Gastrointestinal Verified 11/28/20 11:30 Upset Review of Systems ROS ROS Narrative: Narrative: PFSH Narrative Patient History Narrative: Narrative: Medical/Surgical/Family History All Active Problems COPD exacerbation (Acute) Oxygen dependent (Acute) Respiratory failure (Acute) Nocturnal hypoxia (Acute) Infiltrate of lung present on chest x-ray (Acute) Hypoxia (Chronic) Chronic obstructive lung disease (Chronic) Tobacco dependence syndrome (Acute) Cigarette smoker (Chronic) Medical History Abnormal chest x-ray (Acute) Candidiasis of mouth (Acute) Chronic obstructive lung disease (Chronic) Cigarette smoker (Chronic) 2-3 per day (07-25-2019) COPD exacerbation (Acute) Exercise hypoxemia (Acute) History of cervical cancer (Acute) 1995 stage 4 History of tuberculosis (Acute) 1965 Hypoxia (Chronic) Infiltrate of lung present on chest x-ray (Acute) Nocturnal hypoxia (Acute) Pleural effusion (Resolved) Tobacco dependence syndrome (Acute) Tuberculosis (Acute ~1963) Treated INH and one other med for one year Surgical History History of tonsillectomy (Acute) History of tubal ligation (Acute) Family History Sister Cancer Overdose age 35 Brother Overdose age 40 Social History Smoking Status: Former smoker Alcohol Intake Frequency: 0-2 drinks per day (1 drink of vodka per night; weekends sometimes 2 (08/05/2020)) Substance Use: former substance user Exam Narrative Narrative: Narrative: General: There is still with mild tachypnea and mild respiratory effort. She is able to talk with 5-6 word dyspnea. Lungs are without major wheezes but somewhat distant. CV: Regular without murmur and not currently tachycardic. Extremities no edema or cyanosis. Neuro: Interactive and appropriate. Somewhat sleepy tired/moderate malaise. Psych: Pleasant. Appropriate. Appreciative. Speech is appropriate. No hallucinations or delusions or agitation. General Limitations: no limitations Course Vital Signs Vital signs: Vital Signs Pulse Rate 110 H 11/28/20 11:28 Respiratory Rate 30 H 11/28/20 11:28 Blood Pressure 158/81 11/28/20 11:28 Pulse Oximetry (%) 93 11/28/20 11:28 Pulse Rate 103 H 11/28/20 16:30 Respiratory Rate 22 11/28/20 16:30 Blood Pressure 120/78 11/28/20 16:30 Pulse Oximetry (%) 95 11/28/20 16:30 [facility] MDM Narrative Medical decision making narrative: Narrative: Agree with admission. Lab Data Result diagrams: 11/28/20 11:41 11/28/20 11:40 Labs: Lab Results 11/28/20 11/28/20 Range/Units 11:40 11:41 WBC 8.5 (4.5-11.0) K/mcL RBC 4.06 (4.00-5.20) M/mcL Hgb 12.7 (12.0-15.0) g/dL Hct 38.3 (36.0-48.0) % MCV 94.3 (80.0-100.0) fL MCH 31.3 (26.0-34.0) pg MCHC 33.2 (31.0-36.0) g/dL RDW 12.4 (11.5-14.5) % Plt Count 347 (140-440) K/mcL MPV 10.5 H (7.4-10.4) fL Neut % (Auto) 65.7 (38.0-78.0) % Lymph % (Auto) 15.9 (15.0-49.0) % [place] % (Auto) 9.6 (1.0-12.0) % Eos % (Auto) 8.2 H (0.0-7.0) % Baso % (Auto) 0.6 (0.0-2.0) % Lymph # (Auto) 1.36 L (1.50-4.80) K/mcL [place] # (Auto) 0.82 (0.10-0.90) K/mcL Eos # (Auto) 0.70 (0.00-0.70) K/mcL Baso # (Auto) 0.05 (0.00-0.20) K/mcL Absolute Neutrophils 5.60 (1.80-8.00) K/mcL Sodium 141 (133-145) mmol/L Potassium 4.0 (3.3-5.1) mmol/L Chloride 104 (96-108) mmol/L Carbon Dioxide 26 (22-30) mmol/L Anion Gap 11.0 (8.0-16.0) BUN 9 (8-23) mg/dL Creatinine 0.9 (0.6-1.1) mg/dL GFR Calculation 67 Glucose 103 (70-105) mg/dL Calcium 9.5 (8.6-10.4) mg/dL Total Bilirubin 0.6 (0.1-1.0) mg/dL AST 20 (<32) U/L ALT 13 (<40) U/L Alkaline Phosphatase 110 (39-117) U/L Total Protein 7.7 (5.9-8.4) gm/dL Albumin 4.3 (3.2-5.2) gm/dL Globulin 3.4 (2.2-3.7) gm/dL Albumin/Globulin Ratio 1.3 (1.0-2.3) Discharge Plan Patient/Caregiver Discharge Instructions Pt seen by FLOOR COVERING CONTRACTOR/PA only: Yes Clinical Impression: COPD exacerbation, Respiratory failure Patient Disposition: Xfer As Inpt ([facility]) Follow up with: Jhoana Lopez MD [Primary Care Provider] - Prescriptions: No Action budesonide 0.5 mg/2 mL suspension for nebulization 0.5 mg INHALATION BID Qty: 60 RF: 12 oxygen 3 - 4 l intranasal CONT RF: 0 albuterol sulfate 90 mcg/actuation HFA aerosol inhaler 1 - 2 puff inhalation Q4H PRN (Reason: Wheezing) Qty: 18 RF: 1 (DME) Shower chair Qty: 1 RF: 0 prednisone 20 mg tablet See Rx Instructions PO QDAY Qty: 63 RF: 0 montelukast 10 mg Tablet 10 mg PO QHS RF: 0 ipratropium-albuterol 0.5 mg-3 mg(2.5 mg base)/3 mL Solution For Nebulization 3 ml INHALATION Q4H PRN (Reason: Shortness Of Breath) RF: 0
[2020-11-28] MEDS ORDERED: POTASSIUM CHLORIDE 40 MEQ in DEXTROSE 5% IN WATER 500 ML IV PRN (18:49)
[2020-11-28] MEDS ORDERED: IPRATROPIUM/ALBUTEROL 3 ML AMPUL.NEB NEB PRN (18:49)
[2020-11-28] MEDS ORDERED: MAGNESIUM SULFATE 2 GM/50 ML BAG IV PRN (18:49)
[2020-11-28] MEDS ORDERED: SENNOSIDES 1 TABLET PO PRN (18:49)
[2020-11-28] MEDS ORDERED: ONDANSETRON 4 MG/2 ML VIAL IV PRN (18:49)
[2020-11-28] MEDS ORDERED: POTASSIUM CHLORIDE 20 MEQ TABLET PO PRN ×2 (18:49)
[2020-11-28] MEDS ORDERED: ACETAMINOPHEN 325 MG TABLET PO PRN (18:49)
[2020-11-28] MEDS: BUDESONIDE 0.5 MG/2 ML AMPUL.NEB NEB SCH (19:36)
[2020-11-28] MEDS: LEVALBUTEROL 0.63 MG/3 ML AMPUL.NEB NEB SCH ×2 (19:36→23:20)
[2020-11-28] MEDS: IPRATROPIUM 2.5 ML AMPUL.NEB NEB SCH ×2 (19:37→23:20)
[2020-11-28] MEDS: MONTELUKAST 10 MG TABLET PO SCH (20:11)
[2020-11-28] MEDS: guaiFENesin 600 MG TAB.SR.12H PO SCH (20:11)
[2020-11-28] MEDS: LORazepam 2 MG/ML VIAL IV PRN (20:11)
[2020-11-28] MEDS: methylPREDNISolone SOD SUCC 125 MG/2 ML VIAL IV SCH ×2 (20:11→22:48)
[2020-11-28] MEDS: DOCUSATE SODIUM 100 MG CAPSULE PO SCH (20:11)
[2020-11-28] MEDS: 0.9 % SODIUM CHLORIDE 10 ML SYRINGE IV SCH (20:34)
[2020-11-29] MEDS: IPRATROPIUM 2.5 ML AMPUL.NEB NEB SCH ×6 (02:30→22:37)
[2020-11-29] MEDS: LEVALBUTEROL 0.63 MG/3 ML AMPUL.NEB NEB SCH ×6 (02:31→22:40)
[2020-11-29] MEDS: methylPREDNISolone SOD SUCC 125 MG/2 ML VIAL IV SCH ×3 (05:46→21:22)
[2020-11-29] MEDS: 0.9 % SODIUM CHLORIDE 10 ML SYRINGE IV SCH ×3 (05:46→21:23)
[2020-11-29 06:58] LABS: ALT/SGPT 12 U/L (<40); AST/SGOT 16 U/L (<32); Albumin/Globulin Ratio 1.4 (1.0-2.3); Alkaline Phosphatase 95 U/L (39-117); Bilirubin,Direct < 0.2 mg/dL (<0.3); Bilirubin,Total 0.4 mg/dL (0.1-1.0); Blood Urea Nitrogen 11 mg/dL (8-23); Calcium 9.5 mg/dL (8.6-10.4); Carbon Dioxide 27 mmol/L (22-30); Chloride 102 mmol/L (96-108); Globulin 2.8 gm/dL (2.2-3.7); Glomerular Filtration Rate 90; Glucose 163 mg/dL (70-105); Lactate Dehydrogenase 231 U/L (135-225); Phosphorous 3.8 mg/dL (2.5-4.5); Triglycerides 56 mg/dL (<150); Uric Acid 4.1 mg/dL (2.5-8.0)
[2020-11-29] MEDS ORDERED: DEXTROSE 31 GM ORAL.SUSP PO PRN (07:22)
[2020-11-29] MEDS ORDERED: DEXTROSE 50% 50 ML VIAL IV PRN (07:22)
--- NOTE | 2020-11-29 07:23 | Internal Med Progress Note ---
SUBJECTIVE Subjective Patient information: Note initiated : 11/29/20 at 7:20 am Service Date, if different from initiated Date: [] Patient: Nuzhat Donis 65 y/o F admitted on 11/28/20 for shortness of breath. Chief Complaint: [] Interval history: History of present illness: Ms. Donis is a 65 year old F In the ED she seemed to be maintaining sats on 3 to 4 L of oxygen she is typically on least 3 at home. However she was still quite tachypneic. And with any exertion she became quite labored and is tripoding. Given the concern for exhaustion and rapid deterioration, admission was requested. This is also discussed with the consumer affairs specialist from the ED. She has a cough of productive sputum. She states that the symptoms happen every time she finishes her steroid course. She was on a prolonged taper the last time and just finished 10 days ago. She states that several days after that she started getting bad again. She has cough and increased shortness of breath and wheezing. First ABG within normal limits 11/29 Overall feeling better. Productive cough. Shortness of breath but better than yesterday. Slept okay. Did have BiPAP on middle night. Currently on nasal cannula 2.5 L at rest. Review of Systems: denies headache/fever/chills/nausea/vomiting/chest or abdominal pain/diarrhea. Otherwise see above. Constitutional Vitals: Vital Signs Temp Pulse Resp BP Pulse Ox 96.9 F L 90 31 H 113/70 97 11/29/20 04:02 11/29/20 06:01 11/29/20 06:01 11/29/20 06:01 11/29/20 06:01 Period Temp Pulse Resp BP Sys/Gorman Pulse Ox Last 24 Hr 96.9 F-97.9 F 90-110 20-39 90-158/61-130 90-100 Intake and Output 11/28/20 11/29/20 11/29/20 21:59 05:59 13:59 Intake Total 490 240 Output Total 500 Balance 490 -260 Weight 60.146 kg Intake & Output: Intake & Output 11/28/20 11/29/20 11/29/20 21:59 05:59 13:59 Intake Total 490 240 Output Total 500 Balance 490 -260 Weight 60.146 kg Intake: IV 250 Zithromax 500 mg In Dextrose 5% 250 in Water 250 ml @ 250 mls/hr IV ONCE ONE Rx#:[id number] Oral 240 240 Output: Void Amount 500 Other: Urine Appearance Clear Clear Urine Color Bright Yellow Bright Yellow Urine Odor Normal Normal # Voids 1 Exam: General: Alert, Awake, No acute Distress Eyes/N/T: EOMI, Head/Neck: neck supple, CV: Regular but tachycardic, No murmurs, Pulm: Diminished b/l but improving, wheezing b/l, mildly labored Abd: soft, nontender, +BS x4 Ext: no clubbing/cyanosis/edema Neuro: Alert, no focal deficits, moves all extremities, Skin: warm/dry OBJ DATA Labs CBC & Chem 7: 11/28/20 11:41 11/29/20 05:14 Labs: Abnormal Lab Results 11/29/20 11/28/20 05:14 11:41 MPV 10.5 H Eos % (Auto) 8.2 H Lymph # (Auto) 1.36 L Glucose 163 H Lactate Dehydrogenase 231 H Meds: Medications Acetaminophen (Tylenol) 650 mg PO Q6HP PRN PRN Reason: PAIN/FEVER > 101 Albuterol/Ipratropium (Duoneb) 3 ml NEB Q4HP PRN PRN Reason: Shortness Of Breath Budesonide (Pulmicort) 0.5 mg NEB Q12 [facility] Last Admin: 11/28/20 19:36 Dose: 0.5 mg Documented by: Docusate Sodium (Colace) 100 mg PO BID [facility] Last Admin: 11/28/20 20:11 Dose: 100 mg Documented by: Enoxaparin Sodium (Lovenox) 40 mg SQ DAILY [facility] Guaifenesin (Mucinex) 600 mg PO BID [facility] Last Admin: 11/28/20 20:11 Dose: 600 mg Documented by: Potassium Chloride 40 meq/ (Dextrose) 520 mls @ 130 mls/hr IV UD PRN PRN Reason: Potassium < 3 Magnesium Sulfate (Magnesium Sulfate) 2 gm in 50 mls @ 50 mls/hr IV UD PRN PRN Reason: Magnesium </= 1.6 Azithromycin 500 mg/ Dextrose 250 mls @ 250 mls/hr IV Q24H [facility]; Protocol Stop: 12/01/20 10:59 Ipratropium [place] (Atrovent) 2.5 ml NEB Q4HRT [facility] Last Admin: 11/29/20 02:30 Dose: 2.5 ml Documented by: Levalbuterol HCl (Xopenex) 0.63 mg NEB Q4HRT [facility] Last Admin: 11/29/20 02:31 Dose: 0.63 mg Documented by: Lorazepam (Ativan) 0.5 mg IV Q6HP PRN PRN Reason: Anxiety Last Admin: 11/28/20 20:11 Dose: 0.5 mg Documented by: Methylprednisolone Sodium Succinate (Solu-Medrol) 80 mg IV Q8 [facility] Last Admin: 11/29/20 05:46 Dose: 80 mg Documented by: Montelukast Sodium (Singular) 10 mg PO QHS [facility] Last Admin: 11/28/20 20:11 Dose: 10 mg Documented by: Ondansetron HCl (Zofran) 4 mg IV Q4HP PRN PRN Reason: Nausea And Vomiting Potassium Chloride (Kdur) 40 meq PO UD PRN PRN Reason: Potssium is 3-3.5 Potassium Chloride (Kdur) 40 meq PO UD PRN PRN Reason: Potassium < 3 Senna (Senokot) 2 tab PO DAILYP PRN PRN Reason: Constipation Sodium Chloride (Saline Flush) 10 ml IV Q8 [facility] Last Admin: 11/29/20 05:46 Dose: 10 ml Documented by: A/P Narrative A/P Narrative: A: *AECOPD(on 3-4L O2@home), Severe COPD: -rvp/covid neg *Acute hypoxic respiratory failure: -was on 6L in ED then decreased to 3L, but needed bipap o/n *quit smoking last Fall: P: -Steroids (wean), nebs including pulmicort/prn -IS/acapella, wean O2, prn NIV -empiric azithromycin -Pulmonology consult, pt seems to be steroid dependent -ppx: Lovenox full code Time Spent With Patient Time: Total time spent is greater than 50% in coordination of care (as documented) at patient's floor/unit and/or counseling patient: QUALITY VTE Deep Vein Thrombosis/Pulmonary Embolism Present on Admission: No
[2020-11-29] MEDS: BUDESONIDE 0.5 MG/2 ML AMPUL.NEB NEB SCH ×2 (07:35→19:19)
[2020-11-29] MEDS: ENOXAPARIN 40 MG/0.4 ML SYRINGE SQ SCH (08:13)
[2020-11-29] MEDS: INSULIN LISPRO 1 UNIT/0.01 ML UNIT SQ SCH ×4 (08:13→21:23)
[2020-11-29] MEDS: guaiFENesin 600 MG TAB.SR.12H PO SCH ×2 (08:13→21:22)
[2020-11-29] MEDS: DOCUSATE SODIUM 100 MG CAPSULE PO SCH ×2 (08:13→21:22)
--- NOTE | 2020-11-29 08:47 | Consultation ---
DATE OF CONSULTATION: 11/28/2020 HISTORY OF PRESENT ILLNESS: The patient is a 64-year-old female well known to the pulmonary clinic, who presents to the emergency room today (she was seen and evaluated on the evening of 11/28/2020). She was seen in the emergency room. She had recent hospitalization and exacerbation of her COPD. She had been on an extended prednisone taper in that regard. Her prednisone taper discontinued several days ago. She noted a gradual increase in her difficulty with dyspnea and volume of sputum production. Her sputum is not particularly purulent. She denies fevers, sweats or chills. She is continuing her outpatient regimen of inhaled medicines. Since arriving in the emergency room, she has received Solu-Medrol and bronchodilators. This has improved her state in general, but she still has a sense of fatigue and difficulty and has been accepted for hospitalization by the hospitalist staff. REVIEW OF SYSTEMS: No additional focus of abnormalities, chest pain, dependent edema, pleuritic chest pains, or other. PHYSICAL EXAMINATION: GENERAL: A tired-appearing female in moderate respiratory difficulty, but no acute distress, having improved from their initial description with interventions in the emergency room. HEENT: Atraumatic and normocephalic. NECK: Supple. Carotids are without bruits. CHEST: Lungs have significantly decreased breath sounds in all lung randall with prolonged expiratory phase at this point in time. No vane wheeze. CARDIOVASCULAR: Regular S1, S2. There is no gallop, rub, jugular venous distention, or edema. ABDOMEN: Soft. Bowel sounds are normal. NEUROLOGIC: Nonfocal. LABORATORY DATA: CBC has a white count at 8.5 with a hemoglobin of 12.7 and 347,000 platelets. Curiously, she has an 8.2% eosinophil count. Her lactic acid venous is 2.3/2.0 suggesting her increased work of breathing. Arterial blood gas has a PaO2 of 108 with a PaCO2 of 45 and a pH of 7.40 suggesting chronic respiratory hypoventilation and additional oxygen administration. Chest radiograph is reviewed and was without acute changes. Previous chest radiograph with CT 08/22/2020 only shows profound emphysema. IMPRESSION: Severe end-stage chronic obstructive lung disease with an FEV1 of 0.60 liters when last tested some time ago. Agree with aggressive management with bronchodilators and Solu-Medrol. Sputum should be cultured for atypical organisms that might be contributing to her airway inflammation. The elevation in eosinophils is a curious finding and perhaps an ANCA could be drawn. At this point in time, the patient likely has progressed to a steroid-dependent state and may likely need to be discharged on an ongoing dose of prednisone planned at the end of her hospitalization. We will discuss. Thank you for the opportunity to participate in the care of this pleasant patient. KJP:[email or web address] Job ID: [id number] Doc ID: [id number] Jacob Aldana MD
[2020-11-29] MEDS: AZITHROMYCIN 500 MG in DEXTROSE 5% IN WATER 250 ML IV SCH (09:30)
[2020-11-29] MEDS: LORazepam 2 MG/ML VIAL IV PRN (10:31)
[2020-11-29] MEDS: MONTELUKAST 10 MG TABLET PO SCH (21:22)
[2020-11-30] MEDS: LEVALBUTEROL 0.63 MG/3 ML AMPUL.NEB NEB SCH ×6 (03:13→23:00)
[2020-11-30] MEDS: IPRATROPIUM 2.5 ML AMPUL.NEB NEB SCH ×6 (03:13→23:00)
[2020-11-30] MEDS: methylPREDNISolone SOD SUCC 125 MG/2 ML VIAL IV SCH (06:16)
[2020-11-30] MEDS: 0.9 % SODIUM CHLORIDE 10 ML SYRINGE IV SCH ×3 (06:17→21:40)
[2020-11-30] MEDS: BUDESONIDE 0.5 MG/2 ML AMPUL.NEB NEB SCH ×3 (06:46→20:04)
--- NOTE | 2020-11-30 07:46 | Internal Med Progress Note ---
SUBJECTIVE Subjective Patient information: Note initiated : 11/30/20 at 7:43 am Service Date, if different from initiated Date: [] Patient: Nuzhat Donis 65 y/o F admitted on 11/28/20 for shortness of breath. Chief Complaint: [] Interval history: History of present illness: Ms. Donis is a 65 year old F In the ED she seemed to be maintaining sats on 3 to 4 L of oxygen she is typically on least 3 at home. However she was still quite tachypneic. And with any exertion she became quite labored and is tripoding. Given the concern for exhaustion and rapid deterioration, admission was requested. This is also discussed with the graphics programmer from the ED. She has a cough of productive sputum. She states that the symptoms happen every time she finishes her steroid course. She was on a prolonged taper the last time and just finished 10 days ago. She states that several days after that she started getting bad again. She has cough and increased shortness of breath and wheezing. First ABG within normal limits 11/29 Overall feeling better. Productive cough. Shortness of breath but better than yesterday. Slept okay. Did have BiPAP on middle night. Currently on nasal cannula 2.5 L at rest. 11/30 Feeling much better today. Feels CPAP that she has been on the past couple nights makes a difference. Unfortunately we cannot qualify her for CPAP machine while inpatient. She will need to follow-up with Dr. Aldana for sleep study. Review of Systems: denies headache/fever/chills/nausea/vomiting/chest or abdominal pain/diarrhea. Otherwise see above. Constitutional Vitals: Vital Signs Temp Pulse Resp BP Pulse Ox 98.1 F 80 21 125/73 97 11/30/20 04:40 11/30/20 06:47 11/30/20 06:47 11/30/20 06:01 11/30/20 06:01 Period Temp Pulse Resp BP Sys/Gorman Pulse Ox Last 24 Hr 97 F-98.1 F 79-105 17-41 111-135/51-85 94-100 Intake and Output 11/29/20 11/30/20 11/30/20 21:59 05:59 13:59 Intake Total 450 Output Total 450 1000 300 Balance -450 -550 -300 Weight 60.872 kg Intake & Output: Intake & Output 11/29/20 11/30/20 11/30/20 21:59 05:59 13:59 Intake Total 450 Output Total 450 1000 300 Balance -450 -550 -300 Weight 60.872 kg Intake: Oral 450 Output: Void Amount 450 1000 300 Other: Urine Appearance Clear Clear Clear Urine Color Bright Yellow Bright Yellow Bright Yellow Stool Size Small Smear Stool Color Brown Brown Stool Consistency Formed Exam: General: Alert, Awake, No acute Distress Eyes/N/T: EOMI, Head/Neck: neck supple, CV: Regular but tachycardic, No murmurs, Pulm: better aeration today, mild wheezing b/l, non-labored Abd: soft, nontender, +BS x4 Ext: no clubbing/cyanosis/edema Neuro: Alert, no focal deficits, moves all extremities, Skin: warm/dry OBJ DATA Labs CBC & Chem 7: 11/28/20 11:41 11/29/20 05:14 Labs: Abnormal Lab Results 11/29/20 11/28/20 05:14 11:41 MPV 10.5 H Eos % (Auto) 8.2 H Lymph # (Auto) 1.36 L Glucose 163 H Lactate Dehydrogenase 231 H Meds: Medications Acetaminophen (Tylenol) 650 mg PO Q6HP PRN PRN Reason: PAIN/FEVER > 101 Albuterol/Ipratropium (Duoneb) 3 ml NEB Q4HP PRN PRN Reason: Shortness Of Breath Budesonide (Pulmicort) 0.5 mg NEB Q12 [facility] Last Admin: 11/30/20 06:46 Dose: 0.5 mg Documented by: Dextrose (Dextrose 50%) 0 ml IV UD PRN PRN Reason: Hypoglycemia Diagnostic Test (Pha) (Accu-Chek) 1 each FS ACHS [facility] Last Admin: 11/29/20 21:23 Dose: 1 each Documented by: Docusate Sodium (Colace) 100 mg PO BID [facility] Last Admin: 11/29/20 21:22 Dose: 100 mg Documented by: Enoxaparin Sodium (Lovenox) 40 mg SQ DAILY [facility] Last Admin: 11/29/20 08:13 Dose: 40 mg Documented by: Glucose (Insta-Glucose) 15 gm PO PRN PRN PRN Reason: Hypoglycemia Guaifenesin (Mucinex) 600 mg PO BID [facility] Last Admin: 11/29/20 21:22 Dose: 600 mg Documented by: Potassium Chloride 40 meq/ (Dextrose) 520 mls @ 130 mls/hr IV UD PRN PRN Reason: Potassium < 3 Magnesium Sulfate (Magnesium Sulfate) 2 gm in 50 mls @ 50 mls/hr IV UD PRN PRN Reason: Magnesium </= 1.6 Azithromycin 500 mg/ Dextrose 250 mls @ 250 mls/hr IV Q24H [facility]; Protocol Stop: 11/30/20 10:59 Last Infusion: 11/29/20 13:18 Dose: Infused Documented by: Insulin Human Lispro (Humalog) 0 unit SQ ACHS [facility]; Protocol Last Admin: 11/29/20 21:23 Dose: 2 units Documented by: Ipratropium [place] (Atrovent) 2.5 ml NEB Q4HRT [facility] Last Admin: 11/30/20 06:44 Dose: 2.5 ml Documented by: Levalbuterol HCl (Xopenex) 0.63 mg NEB Q4HRT [facility] Last Admin: 11/30/20 06:44 Dose: 0.63 mg Documented by: Lorazepam (Ativan) 0.5 mg IV Q6HP PRN PRN Reason: Anxiety Last Admin: 11/29/20 10:31 Dose: 0.5 mg Documented by: Methylprednisolone Sodium Succinate (Solu-Medrol) 62.5 mg IV Q8 [facility] Last Admin: 11/30/20 06:16 Dose: 62.5 mg Documented by: Montelukast Sodium (Singular) 10 mg PO QHS [facility] Last Admin: 11/29/20 21:22 Dose: 10 mg Documented by: Ondansetron HCl (Zofran) 4 mg IV Q4HP PRN PRN Reason: Nausea And Vomiting Potassium Chloride (Kdur) 40 meq PO UD PRN PRN Reason: Potssium is 3-3.5 Potassium Chloride (Kdur) 40 meq PO UD PRN PRN Reason: Potassium < 3 Senna (Senokot) 2 tab PO DAILYP PRN PRN Reason: Constipation Sodium Chloride (Saline Flush) 10 ml IV Q8 [facility] Last Admin: 11/30/20 06:17 Dose: 10 ml Documented by: A/P Narrative A/P Narrative: A: *AECOPD(on 3-4L O2@home), Severe COPD: -rvp/covid neg *Acute hypoxic respiratory failure: -was on 6L in ED, down to 2L *quit smoking last Fall: P: -Steroids (wean), nebs including pulmicort/prn -IS/acapella, wean O2, prn NIV -empiric azithromycin -Pulmonology following, pt seems to be steroid dependent -upon d/c will provide taper to 15mg daily and then she will f/u with pulm -ppx: Lovenox full code Time Spent With Patient Time: Total time spent is greater than 50% in coordination of care (as documented) at patient's floor/unit and/or counseling patient: QUALITY VTE Deep Vein Thrombosis/Pulmonary Embolism Present on Admission: No
[2020-11-30] MEDS: DOCUSATE SODIUM 100 MG CAPSULE PO SCH ×2 (08:48→21:47)
[2020-11-30] MEDS: ENOXAPARIN 40 MG/0.4 ML SYRINGE SQ SCH (08:48)
[2020-11-30] MEDS: INSULIN LISPRO 1 UNIT/0.01 ML UNIT SQ SCH ×4 (08:48→21:47)
[2020-11-30] MEDS: guaiFENesin 600 MG TAB.SR.12H PO SCH ×2 (08:48→21:47)
[2020-11-30] MEDS: AZITHROMYCIN 500 MG in DEXTROSE 5% IN WATER 250 ML IV SCH (10:15)
[2020-11-30] MEDS ORDERED: POTASSIUM CHLORIDE 20 MEQ TABLET PO PRN ×2 (10:19)
[2020-11-30] MEDS ORDERED: ACETAMINOPHEN 325 MG TABLET PO PRN (10:19)
[2020-11-30] MEDS ORDERED: IPRATROPIUM/ALBUTEROL 3 ML AMPUL.NEB NEB PRN (10:19)
[2020-11-30] MEDS ORDERED: SENNOSIDES 1 TABLET PO PRN (10:19)
[2020-11-30] MEDS ORDERED: MAGNESIUM SULFATE 2 GM/50 ML BAG IV PRN (10:19)
[2020-11-30] MEDS ORDERED: ONDANSETRON 4 MG/2 ML VIAL IV PRN (10:19)
[2020-11-30] MEDS ORDERED: POTASSIUM CHLORIDE 40 MEQ in DEXTROSE 5% IN WATER 500 ML IV PRN (10:19)
[2020-11-30] MEDS ORDERED: DEXTROSE 31 GM ORAL.SUSP PO PRN (10:19)
[2020-11-30] MEDS ORDERED: DEXTROSE 50% 50 ML VIAL IV PRN (10:19)
[2020-11-30] MEDS: LORazepam 2 MG/ML VIAL IV PRN ×2 (16:31→22:36)
[2020-11-30] MEDS ORDERED: methylPREDNISolone SOD SUCC 40 MG/ML VIAL IV SCH (21:00)
[2020-11-30] MEDS ORDERED: MONTELUKAST 10 MG TABLET PO SCH (21:00)
[2020-11-30] MEDS: methylPREDNISolone SOD SUCC 40 MG/ML VIAL IV SCH (21:47)
[2020-12-01] MEDS: IPRATROPIUM 2.5 ML AMPUL.NEB NEB SCH ×3 (03:05→10:52)
[2020-12-01] MEDS: LEVALBUTEROL 0.63 MG/3 ML AMPUL.NEB NEB SCH ×3 (03:35→10:52)
[2020-12-01] MEDS: 0.9 % SODIUM CHLORIDE 10 ML SYRINGE IV SCH (05:20)
[2020-12-01] MEDS: BUDESONIDE 0.5 MG/2 ML AMPUL.NEB NEB SCH ×2 (06:36→09:57)
[2020-12-01] MEDS: INSULIN LISPRO 1 UNIT/0.01 ML UNIT SQ SCH (07:07)
[2020-12-01] MEDS: LORazepam 2 MG/ML VIAL IV PRN (07:11)
--- NOTE | 2020-12-01 07:13 | Discharge Summary ---
Discharge Provider Provider Patient information: Note initiated : 12/01/20 at 7:12 am Service Date, if different from initiated Date: [] Patient: Nuzhat Donis 65 y/o F admitted on 11/28/20 for shortness of breath. Chief Complaint: [] Date of admission: 11/28/20 18:46 Discharge date: 12/01/20 Primary care physician: Jhoana Lopez Consults: 11/28/20 Consult to Physician [CONS] Stat Comment: Consulting Provider: Bj Gann Reason For Exam: Physician to Consult 11/28/20 17:14 Consult to Physician [CONS] Stat Comment: Consulting Provider: Jacob Aldana Reason For Exam: Physician to Consult Discharge Meds Discharge Medications Home Medications montelukast 10 mg PO QHS 07/26/20 [History Confirmed 11/28/20 Last Taken 11/27/20 19:00] ipratropium-albuterol 3 ml INHALATION Q4H PRN 08/07/20 [History Confirmed 11/28/20 Last Taken 11/28/20 08:00] oxygen 3 - 4 l INTRANASAL CONT 08/14/20 [History Confirmed 11/28/20 Last Taken 11/28/20 08:00] albuterol sulfate 90 mcg/actuation aerosol inhaler 1 - 2 puff INHALATION Q4H PRN #18 g 08/29/20 [Rx Confirmed 11/28/20 Last Taken 11/28/20 05:00] Shower chair #1 ea 09/28/20 [Rx Confirmed 11/28/20 Last Taken Unknown] budesonide 0.5 mg/2 mL suspension for nebulization 0.5 mg INHALATION BID #60 ml 11/21/20 [Rx Confirmed 11/28/20 Last Taken 11/27/20 19:00] prednisone 40 mg PO QDAY #40 tab 12/01/20 [Rx Last Taken Unknown] COURSE Hospital Course Hospital course: History of present illness: Ms. Donis is a 65 year old F In the ED she seemed to be maintaining sats on 3 to 4 L of oxygen she is typically on least 3 at home. However she was still quite tachypneic. And with any exertion she became quite labored and is tripoding. Given the concern for exhaustion and rapid deterioration, admission was requested. This is also discussed with the duplicator punch operator from the ED. She has a cough of productive sputum. She states that the symptoms happen every time she finishes her steroid course. She was on a prolonged taper the last time and just finished 10 days ago. She states that several days after that she started getting bad again. She has cough and increased shortness of breath and wheezing. First ABG within normal limits 11/29 Overall feeling better. Productive cough. Shortness of breath but better than yesterday. Slept okay. Did have BiPAP on middle night. Currently on nasal cannula 2.5 L at rest. 11/30 Feeling much better today. Feels CPAP that she has been on the past couple nights makes a difference. Unfortunately we cannot qualify her for CPAP machine while inpatient. She will need to follow-up with Dr. Aldana for sleep study. 12/01 Patient doing well. Oxygen requirement less than her home regimen. Stable for discharge. A: *AECOPD(on 3-4L O2@home), Severe COPD: -rvp/covid neg *Acute hypoxic respiratory failure: *quit smoking last Fall: Discharge diagnosis: COPD acute hypoxic respite failure Time Spent with Patient Time attestation: Total time spent providing and/or coordinating discharge services: Time spent: Greater than 30 minutes EXAM Constitutional Vitals: Temp Pulse Resp BP Pulse Ox 97.6 F 85 24 H 125/72 94 12/01/20 07:06 12/01/20 07:06 12/01/20 07:06 12/01/20 03:38 12/01/20 07:06 Discharge Data Data Completed and Pending Labs on day of discharge: Preliminary micro results at discharge 11/28/20 12:57 Fungal Smear - Preliminary Sputum - Expectorated Discharge Plan Patient/Caregiver Discharge Instructions Activity: increase activity as tolerated Diet: Regular Diet Activity Restrictions/Additional Instructions: Follow-up with duplicator punch operator for sleep study. Prescriptions: New prednisone 10 mg tablet 40 mg PO QDAY Qty: 40 RF: 0 Continued budesonide 0.5 mg/2 mL suspension for nebulization 0.5 mg INHALATION BID Qty: 60 RF: 12 oxygen 3 - 4 l intranasal CONT RF: 0 albuterol sulfate 90 mcg/actuation HFA aerosol inhaler 1 - 2 puff inhalation Q4H PRN (Reason: Wheezing) Qty: 18 RF: 1 (DME) Shower chair Qty: 1 RF: 0 montelukast 10 mg Tablet 10 mg PO QHS RF: 0 ipratropium-albuterol 0.5 mg-3 mg(2.5 mg base)/3 mL Solution For Nebulization 3 ml INHALATION Q4H PRN (Reason: Shortness Of Breath) RF: 0 Discontinued prednisone 20 mg tablet See Rx Instructions PO QDAY Qty: 63 RF: 0 Follow Up Plan Follow up with: Jhoana Lopez MD [Primary Care Provider] - Jacob Aldana MD [Physician] - Patient Disposition: Home, Self-Care Prognosis: Undetermined Overall status at discharge: patient is progressing back to baseline Discharge Orders: Discharge Order (Routine); Ordered 12/01/20 Ordered By: Bj Gann [facility] VTE Deep Vein Thrombosis/Pulmonary Embolism Present on Admission: No
[2020-12-01] MEDS ORDERED: ENOXAPARIN 40 MG/0.4 ML SYRINGE SQ SCH (09:00)
[2020-12-01] MEDS: methylPREDNISolone SOD SUCC 40 MG/ML VIAL IV SCH (09:08)
[2020-12-01] MEDS: DOCUSATE SODIUM 100 MG CAPSULE PO SCH (09:08)
[2020-12-01] MEDS: guaiFENesin 600 MG TAB.SR.12H PO SCH (09:08)
[2020-12-01] MEDS ORDERED: AZITHROMYCIN 500 MG in DEXTROSE 5% IN WATER 250 ML IV SCH (10:00)
== END 2020-12-01 11:54 | disposition home or self-care (01) | DRG 190 ==
LOC: ED 11:28 → ICU 18:46 → MEDSUR 11-30 14:34
PROVIDERS: ADMIT Internal Medicine; ATTEND Internal Medicine

== ENCOUNTER 2023-05-21 00:56 | Inpatient (IN) ==
[2023-05-21] MEDS ORDERED: IOPAMIDOL 100 ML BOTTLE IV ONE (00:57)
[2023-05-21] MEDS ORDERED: METHOCARBAMOL 1,000 MG/10 ML VIAL IV ONE (01:28)
[2023-05-21] MEDS ORDERED: KETOROLAC 30 MG/ML VIAL IV ONE (01:28)
[2023-05-21] MEDS ORDERED: METHOCARBAMOL 1,000 MG/10 ML VIAL ONE (01:40)
[2023-05-21] MEDS ORDERED: KETOROLAC 15 MG/ML VIAL ONE (01:41)
[2023-05-21] MEDS ORDERED: HYDROmorphone 0.5 MG/0.5 ML SYRINGE ONE (01:49)
[2023-05-21] MEDS: HYDROmorphone 0.5 MG/0.5 ML SYRINGE IV PRN ×9 (01:50→23:32)
[2023-05-21 03:13] LABS: Basophils % (Auto) 0.8 % (0.0-2.0); Eosinophils # (Auto) 0.39 K/mcL (0.00-0.70); Hemoglobin 11.7 g/dL (11.2-15.7); Lymphocytes % (Auto) 22.4 % (15.5-49.0); Mean Corpuscular HGB Conc 31.6 g/dL (31.0-36.0); Mean Platelet Volume 10.6 fL (8.8-12.5); Monocytes # (Auto) 1.13 K/mcL (0.10-0.90); Monocytes % (Auto) 8.7 % (1.0-12.0); Neutrophils % (Auto) 62.1 % (38.0-78.0); Platelet Count 342 K/mcL (140-440); RBC 4.11 M/mcL (3.59-5.38); Red Cell Distribution Width 14.7 % (11.5-14.5); proBNP 175.9 pg/mL (<125.0)
[2023-05-21] MEDS ORDERED: LACTATED RINGERS 1,000 ML IV ONE (03:19)
--- NOTE | 2023-05-21 03:57 | XRay Report ---
CLINICAL INFORMATION: COPD. Dyspnea COMPARISON: 04/08/2023 TECHNIQUE: PA and Lateral views FINDINGS: The heart size, mediastinum and pulmonary vessels are unremarkable. COPD changes with mild bibasilar fibrosis similar to previous studies. No definite new pulmonary abnormalities There are no effusions. The bones and soft tissues are within normal limits. IMPRESSION: COPD with mild bibasilar fibrosis-similar previous studies. No definite acute disease Interpreted and Authenticated by: Colin Evans 05/21/23
[2023-05-21] MEDS ORDERED: HYDROmorphone 0.5 MG/0.5 ML SYRINGE IV ONE (04:25)
--- NOTE | 2023-05-21 05:08 | Cat Scan Report ---
CLINICAL INFORMATION: Right flank pain COMPARISON: Abdomen and pelvic CT 04/08/2023 TECHNIQUE: Following enteric contrast, 80 cc of Isovue-370 were injected intravenously, and 60 seconds later, 0.625 mm helical slices were obtained from the mid heart through the subtrochanteric regions. Following reconstruction, 2.5 mm sagittal, coronal and axial reformatted images were processed and reviewed at bone, lung and soft tissue windows. Five minutes later, 0.625 mm helical slices were obtained from the mid heart through the kidneys and viewed at soft tissue windows.The exam was performed using radiation dose optimization techniques including, but not limited to, automated exposure control, adjustment of the mA and/or kV according to patient size and use of iterative reconstruction technique. FINDINGS: The lung bases show scattered atelectasis/fibrosis in the lower lobes-more prominent right side. There are no effusions. The visualized heart is mildly enlarged with heavy lipomatous infiltration interatrial septum. There is also calcification within the mitral valve. Abdominal images show mild, yet stable fatty change within the liver-no focal hepatic lesions. Prominent phrygian cap at gallbladder fundus is unchanged. Gallbladder and bile ducts are, otherwise, normal: CBD is 5 mm. The pancreas, both adrenal glands, spleen and kidneys are normal in size, configuration and attenuation without focal lesion. The abdominal aorta is normal diameter-18 mm with extensive fibrofatty and calcific plaque. Aortic branches contain plaque, but no significant stenoses. IVC is normal. 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 There is no free air, free fluid or adenopathy. Pelvic images show an anteflexed uterus which is normal postmenopausal size 5 x 3 cm. The region of both ovaries is unremarkable. Urinary bladder is normal. There are multiple sigmoid diverticuli, but no evidence of diverticulitis. The remaining large bowel, appendix region small bowel stomach are grossly normal. Small bilateral inguinal hernias with only mesenteric fat. Multiple osteoporotic compression fractures are new since a CT just two months prior: Mild T11, severe T12, mild L1, mild L2 and mild L5. IMPRESSION: Multiple osteoporotic compression fractures-most severe at T12,. These are new since a CT just two months prior and may account for the patient's pain. Phrygian cap at gallbladder fundus again noted. Small bilateral inguinal hernias containing only mesenteric fat. Sigmoid diverticulosis no evidence of diverticulitis. Retroaortic left renal vein-congenital variant Interpreted and Authenticated by: Colin Evans 05/21/23
--- NOTE | 2023-05-21 05:47 | Emergency Department Note ---
SOB HPI General Chief Complaint: Shortness of Breath/Dyspnea Stated Complaint: shortness of breath Time Seen by Provider: 05/21/23 01:01 Source: patient and EMS Mode of arrival: EMS History of Present Illness HPI Narrative: Narrative: This is a 67-year-old female with a history of COPD on chronic prednisone 15 mg presents to the emergency department with lower thoracic and upper lumbar spinal pain. She reports its mostly right-sided. She denies any urinary changes. She denies any saddle anesthesia there is no radicular symptoms down her legs but she does occasionally experience some lower lumbar radiculopathy she states this pain is higher than her typical lower back pain. There is no associated abdominal pain. She states her pain is worse with movement especially of her legs. It comes and goes and there is associated muscle spasm. She has recently established with the pain clinic and had an epidural spinal injection at L4-L5. She is also taking Tylenol 1000 mg 3 times daily along with 10 mg of oxycodone. The patient was triaged as a shortness of breath but she states her pain is so bad that she cannot take a big deep deeply and slowly. Related Data Home Medications Medication Instructions Recorded Confirmed montelukast 10 mg tablet 10 mg PO QHS 07/26/20 05/21/23 oxygen See Rx Instructions intranasal CONT 03/20/22 05/21/23 ezetimibe 10 mg tablet 10 mg PO QDAY 07/18/22 05/21/23 metformin 500 mg tablet,extended 500 mg PO QDAY 05/14/23 05/21/23 release 24 hr omeprazole 20 mg capsule,delayed 20 mg PO QDAY 05/14/23 05/21/23 release alprazolam 0.25 mg tablet 0.25 mg PO BID 05/15/23 05/21/23 hydroxyzine HCl 50 mg tablet 25 mg PO TID PRN anxiety 05/21/23 05/21/23 prednisone 10 mg tablet 15 mg PO QAM 05/21/23 05/21/23 Previous Rx's Medication Instructions Recorded Shower chair #1 ea 09/28/20 albuterol sulfate 2.5 mg/3 mL 2.5 mg (3 mL) inhalation QID #360 05/29/22 (0.083 %) solution for nebulization mL budesonide 0.5 mg/2 mL suspension 0.5 mg (2 mL) inhalation BID #60 mL 03/31/23 for nebulization hydrocodone 7.5 mg-acetaminophen 1 tab PO BID PRN pain #6 tabs 04/08/23 325 mg tablet nystatin 100,000 unit/mL oral 1 ml PO QID 10 days #60 mL 05/01/23 suspension methocarbamol 750 mg tablet 750 mg PO Q8H PRN muscle spasm #10 05/09/23 tabs oxycodone 10 mg tablet 5 - 10 mg PO Q4H PRN pain #80 tabs 05/14/23 Allergies Allergy/AdvReac Type Severity Reaction Status Date / Time lactose Allergy Severe Difficulty Verified 05/21/23 01:13 Breathing shrimp Allergy Severe Difficulty Verified 05/21/23 01:13 Breathing [id number] AdvReac Severe "choking Verified 05/21/23 01:13 [From Trelegy Ellipta] feeling" "can't swallow" umeclidinium AdvReac Severe "choking Verified 05/21/23 01:13 [From Trelegy Ellipta] feeling" "can't swallow" vilanterol AdvReac Severe "choking Verified 05/21/23 01:13 [From Trelegy Ellipta] feeling" "can't swallow" aspirin AdvReac Mild Gastrointestinal Verified 05/21/23 01:13 Upset Review of Systems ROS ROS Narrative: Narrative: All systems ED: reviewed and negative except as stated. [facility] Narrative Patient History Narrative: Narrative: Medical/Surgical/Family History All Active Problems (Updated 05/21/23 @ 06:55 by Adam Lott MD) Closed compression fracture of thoracic vertebra (Acute) Compression fx, lumbar spine (Acute) Radiculopathy, lumbosacral region (Acute) Low back pain (Acute) Elevated serum creatinine (Acute) Other low back pain (Chronic) Dorsalgia (Chronic) Back pain (Acute) Cough (Acute) Acute exacerbation of emphysema (Acute) Anxiety (Acute) Shortness of breath (Chronic) Yeast infection (Acute) Disorders of diaphragm (Chronic) Gastroesophageal reflux disease (Chronic) Former cigarette smoker (Chronic) ILIANA (obstructive sleep apnea) (Chronic) Thrush (Acute) COPD exacerbation (Acute) Oxygen dependent (Chronic) Respiratory failure (Chronic) Nocturnal hypoxia (Chronic) Infiltrate of lung present on chest x-ray (Acute) Hypoxia (Chronic) Chronic obstructive lung disease (Chronic) Medical History (Updated 05/21/23 @ 06:55 by Adam Lott MD) Abnormal chest x-ray Candidiasis of mouth Chronic obstructive lung disease Cigarette smoker 2-3 per day (07-25-2020) COPD exacerbation Disorders of diaphragm Dorsalgia Exercise hypoxemia History of cervical cancer 1995 stage 4 History of tuberculosis 1965 Hypoxia Hypoxia Infiltrate of lung present on chest x-ray Nocturnal hypoxia ILIANA (obstructive sleep apnea) Other low back pain Oxygen dependent home 3L/min. chronic, 11/28/20 Pleural effusion Radiculopathy, lumbosacral region Thrush Tobacco dependence syndrome Tuberculosis (~1963) Treated INH and one other med for one year Surgical History History of tonsillectomy History of tubal ligation Family History (Updated 05/14/23 @ 10:23 by Katelynn Quinones) Sister Cancer Overdose age 35 Brother Overdose age 40 Mother Cancer Social History Smoking Status: Former smoker Alcohol Intake Frequency: 0-2 drinks per day (1 drink of vodka per night; weekends sometimes 2 (08/05/2020)) Substance Use: former substance user Exam Narrative Narrative: Narrative: Vital signs noted General: Appears very uncomfortable writhing around in pain HEENT: NCAT Neck: Supple, trachea midline Cardiovascular: Tachycardic, regular rhythm Respiratory: Tachypneic, scant end expiratory wheezes Gastrointestinal: Soft. No tenderness, Rojas sign is negative no right lower quadrant tenderness Musculoskeletal: Tenderness to palpation worse around T2 especially in the right paraspinal muscles Skin: No overlying rash or vesicular lesions Neurologic: Alert and oriented patient has pain with movement of the right lower extremity but she has symmetric strength she has 2+ patellar reflexes no clonus sensation is intact to light touch at the feet Course Vital Signs Vital signs: Vital Signs Oxygen Delivery Method Nasal Cannula 05/21/23 00:57 Oxygen Flow Rate (L/min) 3 05/21/23 00:57 Temperature 97.6 F 05/26/23 00:00 Pulse Rate 89 05/26/23 06:50 Respiratory Rate 23 H 05/26/23 06:50 Blood Pressure 179/80 05/26/23 04:00 Pulse Oximetry (%) 93 05/26/23 06:50 Oxygen Delivery Method CPAP 05/26/23 06:50 Oxygen Flow Rate (L/min) 3 05/26/23 06:50 MDM MDM Narrative Medical decision making narrative: Narrative: Patient presents to the emergency department she was triaged as shortness of breath but is complaining of low thoracic and upper lumbar spinal pain she denies any trauma. No fevers or chills or infectious symptoms she states her breathing is at her baseline with sounds to be not great. She wears 3 L nasal cannula chronically she reports and has noninvasive ventilator at home to use as needed. She states that she has been battling with lower back pain for the last several months she states this is slightly higher there is no radicular symptoms. Her pain is worse with movement. Differential includes but is not limited to musculoskeletal pathology, urinary tract calculi, urinary tract infection, pneumonia liver or biliary pathology, zoster. Patient did have a recent epidural spinal injection last week and I did consider epidural abscess, epidural hematoma her pain is higher than where the injection was at. Her pain does seem to be more musculoskeletal as worse with movement and she has no abdominal pain. Her CBC shows a mildly elevated white blood cell count 13,000 neutrophils are 62%. Patient's venous blood gas does not show any findings of CO2 retention acutely. Her pH is 7.4, P CO2 35, lactate is 2.1. Patient's chemistry shows a creatinine of 0.[address] scan was obtained which shows multiple osteoporotic compression fractures most severe at T12 along with compression fractures that are mild at T11, L1, L2 and L5 these are new compared to a CT scan obtained just 2 months ago. I suspect these are the cause of patient's symptoms and she is having some associated muscle spasms with them. Given her chronic steroid use and osteoporosis she is at risk for low mechanism fractures. There is not any findings on exam of of acute cord compression. Patient was medicated with intravenous Dilaudid 0.5 mg x 3, Robaxin 1000 mg IV, 15 mg of Toradol IV, 1000 mg of Tylenol, 5 mg of oxycodone. The patient is in still pain despite the use of intravenous pain medications I feel she should be admitted for pain control and multiple thoracic and lumbar spinal compression fractures. Currently there is no bed available but I have spoken with the hospitalist who has agreed to admit the patient. Patient's [id number] urinalysis does show trace blood and leukocytosis she is not having any symptoms of urinary tract infection, I will send this to lab for microscopic urinalysis with reflex if indicated. CT scan showed no findings of urinary tract calculi or other radiographic findings of pyelonephritis. Lab Data 05/23/23 07:00 05/23/23 07:00 Labs: Lab Results 05/21/23 05/21/23 05/21/23 Range/Units 01:50 01:50 01:50 WBC 13.0 H (4.5-11.0) K/mcL RBC 4.11 (3.59-5.38) M/mcL Hgb 11.7 (11.2-15.7) g/dL Hct 37.0 (34.1-44.9) % MCV 90.0 (80.0-100.0) fL MCH 28.5 (26.0-34.0) pg MCHC 31.6 (31.0-36.0) g/dL RDW 14.7 H (11.5-14.5) % Plt Count 342 (140-440) K/mcL MPV 10.6 (8.8-12.5) fL Immature Gran % (Auto) 3.0 H (0.0-0.5) % Neut % (Auto) 62.1 (38.0-78.0) % Lymph % (Auto) 22.4 (15.5-49.0) % Cache % (Auto) 8.7 (1.0-12.0) % Eos % (Auto) 3.0 (0.0-7.0) % Baso % (Auto) 0.8 (0.0-2.0) % Lymph # (Auto) 2.90 (1.50-4.80) K/mcL [place] # (Auto) 1.13 H (0.10-0.90) K/mcL Eos # (Auto) 0.39 (0.00-0.70) K/mcL Baso # (Auto) 0.10 (0.00-0.30) K/mcL Immature Gran # 0.39 H (0.00-0.05) K/mcl Absolute Neutrophils 8.04 H (1.80-8.00) K/mcL Total Bilirubin (0.1-1.0) mg/dL Direct Bilirubin (0-0.3) mg/dL AST (<32) U/L ALT (<40) U/L Alkaline Phosphatase (39-117) U/L NT-Pro-B Natriuret Pep 175.9 H (<125.0) pg/mL Total Protein (5.9-8.4) gm/dL Albumin (3.2-5.2) gm/dL Globulin (2.2-3.7) gm/dL Procalcitonin 0.19 H (<0.10) ng/mL Urine Color Urine Appearance (Clear) Urine pH (5.0-9.0) Ur Specific [place] (1.000-1.035) Urine Protein (Negative) mg/dL Urine Glucose (UA) (Negative) mg/dL Urine Ketones (Negative) mg/dL Urine Occult Blood (Negative) donaldo/mcL Urine Nitrate (Negative) Urine Bilirubin (Negative) mg/dL Urine Urobilinogen mg/dL Ur Leukocyte Esterase (Negative) /uL Ur Culture Indicated? 05/21/23 05/21/23 Range/Units 01:50 07:25 WBC (4.5-11.0) K/mcL RBC (3.59-5.38) M/mcL Hgb (11.2-15.7) g/dL Hct (34.1-44.9) % MCV (80.0-100.0) fL MCH (26.0-34.0) pg MCHC (31.0-36.0) g/dL RDW (11.5-14.5) % Plt Count (140-440) K/mcL MPV (8.8-12.5) fL Immature Gran % (Auto) (0.0-0.5) % Neut % (Auto) (38.0-78.0) % Lymph % (Auto) (15.5-49.0) % Cache % (Auto) (1.0-12.0) % Eos % (Auto) (0.0-7.0) % Baso % (Auto) (0.0-2.0) % Lymph # (Auto) (1.50-4.80) K/mcL [place] # (Auto) (0.10-0.90) K/mcL Eos # (Auto) (0.00-0.70) K/mcL Baso # (Auto) (0.00-0.30) K/mcL Immature Gran # (0.00-0.05) K/mcl Absolute Neutrophils (1.80-8.00) K/mcL Total Bilirubin 0.2 (0.1-1.0) mg/dL Direct Bilirubin < 0.2 (0-0.3) mg/dL AST 18 (<32) U/L ALT 25 (<40) U/L Alkaline Phosphatase 191 H (39-117) U/L NT-Pro-B Natriuret Pep (<125.0) pg/mL Total Protein 6.6 (5.9-8.4) gm/dL Albumin 4.4 (3.2-5.2) gm/dL Globulin 2.2 (2.2-3.7) gm/dL Procalcitonin (<0.10) ng/mL Urine Color Yellow Urine Appearance Clear (Clear) Urine pH 5.0 (5.0-9.0) Ur Specific [place] 1.015 (1.000-1.035) Urine Protein Negative (Negative) mg/dL Urine Glucose (UA) Negative (Negative) mg/dL Urine Ketones Negative (Negative) mg/dL Urine Occult Blood Negative (Negative) donaldo/mcL Urine Nitrate Negative (Negative) Urine Bilirubin Negative (Negative) mg/dL Urine Urobilinogen Normal mg/dL Ur Leukocyte Esterase Negative (Negative) /uL Ur Culture Indicated? No Discharge Plan Patient/Caregiver Discharge Instructions Pt seen by TITLE CAMERA OPERATOR/PA only: No Clinical Impression: Closed compression fracture of thoracic vertebra Qualifiers: Encounter type: initial encounter Qualified Code(s): S22.000A - Wedge compression fracture of unspecified thoracic vertebra, initial encounter for closed fracture Compression fx, lumbar spine Qualifiers: Encounter type: initial encounter Lumbar vertebra fracture level: L2 Qualified Code(s): S32.020A - Wedge compression fracture of second lumbar vertebra, initial encounter for closed fracture Activity: increase activity as tolerated Patient Disposition: Xfer As Outpt/Obs ([facility]) Condition: Fair Discharge Date/Time: 05/21/23 12:23
[2023-05-21] MEDS ORDERED: ACETAMINOPHEN 325 MG TABLET PO ONE (05:58)
[2023-05-21] MEDS ORDERED: oxyCODONE IR 5 MG TABLET PO ONE (05:58)
[2023-05-21] MEDS ORDERED: IPRATROPIUM/ALBUTEROL 3 ML AMPUL.NEB NEB ONE ×2 (06:22→16:51)
[2023-05-21] MEDS: IPRATROPIUM/ALBUTEROL 3 ML AMPUL.NEB NEB SCH ×6 (06:27→21:55)
--- NOTE | 2023-05-21 06:35 | Internal Med History&Physical ---
HPI History of Present Illness Patient information: Note initiated : 05/21/23 at 6:34 am Service Date, if different from initiated Date: [] Patient: Nuzhat Donis 67 y/o F admitted on . Chief Complaint: [] History of present illness: Ms. Donis is a 67 year old female with a history of severe COPD, chronic hypoxia requiring 3 L/min oxygen supplementation at baseline, on chronic prednisone for COPD, osteoporosis, GERD, type 2 diabetes mellitus, obstructive sleep apnea who presented to the hospital for back pain. The patient was found to have vertebral compression fractures at T11, T12, L1, L2 and L5. The compression fracture at T12 was severe, all other compression fractures were felt to be mild. The the compression fractures were new compared to a CT scan 2 months prior and likely accounted for the patient's back pain. The patient was at her baseline oxygen requirement in the ED, she does have leukocytosis however was afebrile. Leukocytosis could be stress induced or secondary to steroids. The patient is on prednisone 15 mg daily chronically. Hospital medicine was asked to admit the patient for pain management. Review of systems Constitutional: no fever, fatigue, or weight loss Eyes: no vision changes or pain Cardiovascular: no chest pain, no palpitations Respiratory: Chronic hypoxia, chronic cough, chronic dyspnea Gastrointestinal: no abdominal pain, no nausea, vomiting, or diarrhea Genitourinary: no dysuria or difficulty voiding Musculoskeletal: no arthralgia or myalgia Integumentary: Positive for back pain Neurological: no focal weakness or numbness Physical exam Head: Atraumatic, normal inspection. Eyes: normal appearance, no scleral icterus. Neck: full ROM Respiratory: 3 L/min nasal cannula oxygen supplementation, diminished breath sound bilaterally Cardiovascular: normal rate and rhythm, S1, S2. GI/Abdominal: soft, nontender, no guarding. Extremities: Tender to his to palpation in mid back. Neurological: CN II-XII intact, intact motor, intact sensation. Psychiatric: normal mood. Skin: warm, normal color PFSH PFSH All Active Problems (Updated 05/21/23 @ 06:55 by Adam Lott MD) Closed compression fracture of thoracic vertebra (Acute) Compression fx, lumbar spine (Acute) Radiculopathy, lumbosacral region (Acute) Low back pain (Acute) Elevated serum creatinine (Acute) Other low back pain (Chronic) Dorsalgia (Chronic) Back pain (Acute) Cough (Acute) Acute exacerbation of emphysema (Acute) Anxiety (Acute) Shortness of breath (Chronic) Yeast infection (Acute) Disorders of diaphragm (Chronic) Gastroesophageal reflux disease (Chronic) Former cigarette smoker (Chronic) ILIANA (obstructive sleep apnea) (Chronic) Thrush (Acute) COPD exacerbation (Acute) Oxygen dependent (Chronic) Respiratory failure (Chronic) Nocturnal hypoxia (Chronic) Infiltrate of lung present on chest x-ray (Acute) Hypoxia (Chronic) Chronic obstructive lung disease (Chronic) Medical History (Updated 05/21/23 @ 06:55 by Adam Lott MD) Abnormal chest x-ray Candidiasis of mouth Chronic obstructive lung disease Cigarette smoker 2-3 per day (07-25-2020) COPD exacerbation Disorders of diaphragm Dorsalgia Exercise hypoxemia History of cervical cancer 1995 stage 4 History of tuberculosis 1965 Hypoxia Hypoxia Infiltrate of lung present on chest x-ray Nocturnal hypoxia ILIANA (obstructive sleep apnea) Other low back pain Oxygen dependent home 3L/min. 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 smoking status: Former smoker smoking status start date: 11/10/69 smoking status stop date: 08/10/20 alcohol intake frequency: 0-2 drinks per day (1 drink of vodka per night; weekends sometimes 2 (08/05/2020)) substance use type: former substance user MEDS/ALLERGIES Home Medications and Allergies Home Medications Medication Instructions Recorded Confirmed Type montelukast 10 mg tablet 10 mg PO QHS 07/26/20 05/21/23 History Shower chair #1 ea 09/28/20 05/21/23 Rx acid campus manager 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 PO 12/21/20 05/14/23 History ipratropium 0.5 mg-albuterol 3 mg 3 ml inhalation QID #360 mL 02/14/21 05/21/23 Rx (2.5 mg base)/3 mL nebulization soln oxygen See Rx Instructions intranasal CONT 03/20/22 05/21/23 History Ventolin HFA 90 mcg/actuation 2 puff inhalation Q4H PRN 05/29/22 05/21/23 Rx aerosol inhaler (albuterol sulfate) shortness of breath or wheezing #36 grams albuterol sulfate 2.5 mg/3 mL 2.5 mg (3 mL) inhalation QID #360 05/29/22 05/21/23 Rx (0.083 %) solution for nebulization mL ezetimibe 10 mg tablet 10 mg PO QDAY 07/18/22 05/21/23 History fluconazole 150 mg tablet 150 mg PO ONCE #1 tab 07/30/22 05/14/23 Rx budesonide 180 mcg/actuation 1 inh inhalation BID #1 ea 12/10/22 05/14/23 Rx breath activated powder inhaler prednisone 20 mg tablet 20 mg PO BID #10 tabs 12/10/22 05/14/23 Rx budesonide 0.5 mg/2 mL suspension 0.5 mg (2 mL) inhalation BID #60 mL 03/31/23 05/21/23 Rx for nebulization hydrocodone 7.5 mg-acetaminophen 1 tab PO BID PRN pain #6 tabs 04/08/23 05/14/23 Rx 325 mg tablet nystatin 100,000 unit/mL oral 1 ml PO QID 10 days #60 mL 05/01/23 05/14/23 Rx suspension methocarbamol 750 mg tablet 750 mg PO Q8H PRN muscle spasm #10 05/09/23 05/21/23 Rx tabs lidocaine 5 % topical patch 1 patch topical QDAY #15 ea 05/10/23 05/21/23 Rx (Lidoderm) metformin 500 mg tablet,extended 500 mg PO QDAY 05/14/23 05/21/23 History release 24 hr omeprazole 20 mg capsule,delayed 20 mg PO QDAY 05/14/23 05/21/23 History release oxycodone 10 mg tablet 5 - 10 mg PO Q4H PRN pain #80 tabs 05/14/23 05/21/23 Rx alprazolam 0.25 mg tablet 0.25 mg PO BID 05/15/23 05/21/23 History hydroxyzine HCl 50 mg tablet 25 mg PO TID PRN anxiety 05/21/23 05/21/23 History prednisone 10 mg tablet 10 mg PO QAM 05/21/23 05/21/23 History Allergies Allergy/AdvReac Type Severity Reaction Status Date / Time lactose Allergy Severe Difficulty Verified 05/21/23 01:13 Breathing shrimp Allergy Severe Difficulty Verified 05/21/23 01:13 Breathing [id number] AdvReac Severe "choking Verified 05/21/23 01:13 [From Trelegy Ellipta] feeling" "can't swallow" umeclidinium AdvReac Severe "choking Verified 05/21/23 01:13 [From Trelegy Ellipta] feeling" "can't swallow" vilanterol AdvReac Severe "choking Verified 05/21/23 01:13 [From Trelegy Ellipta] feeling" "can't swallow" aspirin AdvReac Mild Gastrointestinal Verified 05/21/23 01:13 Upset EXAM Constitutional Vitals: Temp Pulse Resp BP Pulse Ox O2 Del Method O2 Flow Rate 97.6 F 101 H 28 H 130/92 98 Nasal Cannula 3 05/21/23 01:10 05/21/23 05:15 05/21/23 05:15 05/21/23 05:15 05/21/23 05:15 05/21/23 04:30 05/21/23 04:30 DATA Data Completed and Pending Labs: Labs from last 24 hours 05/21/23 05/21/23 05/21/23 01:50 01:50 01:50 WBC 13.0 H RBC 4.11 Hgb 11.7 Hct 37.0 MCV 90.0 MCH 28.5 MCHC 31.6 RDW 14.7 H Plt Count 342 MPV 10.6 Immature Gran % (Auto) 3.0 H Neut % (Auto) 62.1 Lymph % (Auto) 22.4 [place] % (Auto) 8.7 Eos % (Auto) 3.0 Baso % (Auto) 0.8 Lymph # (Auto) 2.90 [place] # (Auto) 1.13 H Eos # (Auto) 0.39 Baso # (Auto) 0.10 Immature Gran # 0.39 H Absolute Neutrophils 8.04 H Total Bilirubin Pending Direct Bilirubin Pending AST Pending ALT Pending Alkaline Phosphatase Pending NT-Pro-B Natriuret Pep Total Protein Pending Albumin Pending Globulin Pending Procalcitonin 0.19 H 05/21/23 01:50 WBC RBC Hgb Hct MCV MCH MCHC RDW Plt Count MPV Immature Gran % (Auto) Neut % (Auto) Lymph % (Auto) [place] % (Auto) Eos % (Auto) Baso % (Auto) Lymph # (Auto) [place] # (Auto) Eos # (Auto) Baso # (Auto) Immature Gran # Absolute Neutrophils Total Bilirubin Direct Bilirubin AST ALT Alkaline Phosphatase NT-Pro-B Natriuret Pep 175.9 H Total Protein Albumin Globulin Procalcitonin A/P Narrative A/P Narrative: Assessment: 67 year old female with severe COPD on prednisone, chronic hypoxia requiring 3L/min oxygen supplementation, admitted for back pain secondary to multiple compression fractures the most severe being at T12. The patient also has milder compression fractures at T11, L1, L2, and L5. Plan: -Analgesics. -TLSO brace as tolerated. -PT and OT. -Home medication reconcilliation. -DVT prophylaxis: Lovenox. Time Spent With Patient Time: Total time spent is greater than 50% in coordination of care (as documented) at patient's floor/unit and/or counseling patient:
[2023-05-21 06:46] LABS: ALT/SGPT 25 U/L (<40); AST/SGOT 18 U/L (<32); Albumin 4.4 gm/dL (3.2-5.2); Alkaline Phosphatase 191 U/L (39-117); Bilirubin,Direct < 0.2 mg/dL (0-0.3); Bilirubin,Total 0.2 mg/dL (0.1-1.0); Globulin 2.2 gm/dL (2.2-3.7)
[2023-05-21] MEDS ORDERED: oxyCODONE IR 5 MG TABLET PO PRN (07:02)
[2023-05-21 08:51] LABS: Appearance,Urine CLEAR (Clear); Bilirubin,Urine NEGATIVE (Negative); Color,Urine YELLOW; Culture Indicated,Urine No; Glucose,Urine (UA) NEGATIVE (Negative); Ketones,Urine NEGATIVE (Negative); Leukocyte Esterase,Urine NEGATIVE /uL (Negative); Nitrate,Urine NEGATIVE (Negative); Protein,Urine NEGATIVE (Negative); Specific Gravity,Urine 1.015 (1.000-1.035); Urine Blood NEGATIVE ery/mcL (Negative); Urobilinogen,Urine Normal
[2023-05-21] MEDS: METHOCARBAMOL 750 MG TABLET PO SCH ×3 (09:12→21:55)
[2023-05-21] MEDS ORDERED: DEXTROSE 50% 50 ML VIAL IV PRN (13:38)
[2023-05-21] MEDS ORDERED: DEXTROSE 31 GM ORAL.SUSP PO PRN (13:38)
[2023-05-21] MEDS ORDERED: ONDANSETRON 4 MG/2 ML VIAL IV PRN (13:38)
[2023-05-21] MEDS ORDERED: NALOXONE HCL 0.4 MG/ML VIAL IV PRN (13:38)
[2023-05-21] MEDS: oxyCODONE IR 5 MG TABLET PO PRN ×2 (14:48→21:55)
[2023-05-21] MEDS: INSULIN LISPRO 1 UNIT/0.01 ML UNIT SQ SCH ×3 (14:55→22:01)
--- NOTE | 2023-05-21 15:21 | EKG ---
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
[2023-05-21] MEDS: 0.9 % SODIUM CHLORIDE 10 ML SYRINGE IV SCH ×2 (15:41→22:00)
[2023-05-21] MEDS: ACETAMINOPHEN 1,000 MG/100 ML BAG IV SCH ×2 (15:44→23:33)
[2023-05-21 15:56] LABS: ALT/SGPT 21 U/L (<40); AST/SGOT 17 U/L (<32); Albumin 4.2 gm/dL (3.2-5.2); Albumin/Globulin Ratio 1.8 (1.0-2.3); Alkaline Phosphatase 191 U/L (39-117); Bilirubin,Direct < 0.2 mg/dL (0-0.3); Bilirubin,Total 0.6 mg/dL (0.1-1.0); Blood Urea Nitrogen 16 mg/dL (8-23); Calcium 9.9 mg/dL (8.6-10.4); Carbon Dioxide 25 mmol/L (22-30); Chloride 106 mmol/L (96-108); Globulin 2.4 gm/dL (2.2-3.7); Glomerular Filtration Rate 58; Glucose 88 mg/dL (70-105); Lactate Dehydrogenase 292 U/L (135-225); Phosphorous 4.2 mg/dL (2.5-4.5); Triglycerides 230 mg/dL (<150); Uric Acid 5.9 mg/dL (2.5-8.0)
[2023-05-21] MEDS ORDERED: LORazepam 2 MG/ML VIAL IV PRN (16:30)
[2023-05-21] MEDS ORDERED: predniSONE 10 MG TABLET PO ONE (16:32)
[2023-05-21] MEDS: ENOXAPARIN 40 MG/0.4 ML SYRINGE SQ SCH (17:08)
[2023-05-21] MEDS ORDERED: IPRATROPIUM/ALBUTEROL 3 ML AMPUL.NEB NEB SCH (19:00)
[2023-05-21] MEDS: BUDESONIDE 0.5 MG/2 ML AMPUL.NEB NEB SCH (20:40)
[2023-05-21] MEDS: MONTELUKAST 10 MG TABLET PO SCH (21:55)
[2023-05-21] MEDS: SENNOSIDES/DOCUSATE SODIUM 1 TAB TABLET PO SCH (21:55)
[2023-05-21] MEDS: ALPRAZolam 0.25 MG TABLET PO PRN (23:33)
[2023-05-22] MEDS: IPRATROPIUM/ALBUTEROL 3 ML AMPUL.NEB NEB SCH ×7 (00:30→22:19)
[2023-05-22] MEDS: 0.9 % SODIUM CHLORIDE 10 ML SYRINGE IV SCH ×4 (03:05→21:23)
[2023-05-22] MEDS: HYDROmorphone 0.5 MG/0.5 ML SYRINGE IV PRN ×4 (03:06→18:52)
[2023-05-22] MEDS: oxyCODONE IR 5 MG TABLET PO PRN ×4 (04:09→16:43)
[2023-05-22] MEDS: hydrOXYzine 25 MG TABLET PO PRN ×2 (04:10→12:16)
[2023-05-22] MEDS: ALPRAZolam 0.25 MG TABLET PO PRN (05:54)
[2023-05-22] MEDS: BUDESONIDE 0.5 MG/2 ML AMPUL.NEB NEB SCH ×3 (07:00→20:44)
[2023-05-22] MEDS: OMEPRAZOLE 20 MG CAPSULE PO SCH (07:03)
[2023-05-22] MEDS: ACETAMINOPHEN 1,000 MG/100 ML BAG IV SCH ×3 (07:03→22:34)
[2023-05-22] MEDS: INSULIN LISPRO 1 UNIT/0.01 ML UNIT SQ SCH ×4 (07:35→21:23)
[2023-05-22] MEDS ORDERED: methylPREDNISolone SOD SUCC 125 MG/2 ML VIAL IV ONE (07:53)
[2023-05-22] MEDS ORDERED: predniSONE 5 MG TABLET PO SCH (08:00)
[2023-05-22 08:26] LABS: Basophils # (Auto) 0.06 K/mcL (0.00-0.30); Basophils % (Auto) 0.6 % (0.0-2.0); Eosinophils # (Auto) 0.05 K/mcL (0.00-0.70); Eosinophils % (Auto) 0.5 % (0.0-7.0); Hematocrit 36.9 % (34.1-44.9); Hemoglobin 11.6 g/dL (11.2-15.7); Lymphocytes # (Auto) 1.65 K/mcL (1.50-4.80); Lymphocytes % (Auto) 16.2 % (15.5-49.0); Mean Cell Volume 90.7 fL (80.0-100.0); Mean Corpuscular HGB Conc 31.4 g/dL (31.0-36.0); Monocytes % (Auto) 6.9 % (1.0-12.0); Neutrophils % (Auto) 74.4 % (38.0-78.0); Platelet Count 319 K/mcL (140-440); RBC 4.07 M/mcL (3.59-5.38); Red Cell Distribution Width 14.4 % (11.5-14.5); WBC 10.2 K/mcL (4.5-11.0)
[2023-05-22] MEDS: POLYETHYLENE GLYCOL 3350 17 GM PACKET PO SCH (08:32)
[2023-05-22] MEDS: EZETIMIBE 10 MG TABLET PO SCH (08:32)
[2023-05-22] MEDS: METHOCARBAMOL 750 MG TABLET PO SCH ×3 (08:32→21:29)
[2023-05-22] MEDS: SENNOSIDES/DOCUSATE SODIUM 1 TAB TABLET PO SCH ×2 (08:32→21:23)
[2023-05-22] MEDS: ENOXAPARIN 40 MG/0.4 ML SYRINGE SQ SCH (08:32)
--- NOTE | 2023-05-22 09:34 | XRay Report ---
CLINICAL INFORMATION: dyspnea COMPARISON: 05/21/2023 FINDINGS: Heart is at upper limits of normal in size. Moderate hiatal hernia appreciated. The remaining mediastinal and pulmonary vessels are normal. Prominent fat pad in the right cardiophrenic angle seen as before. No infiltrates or effusions. IMPRESSION: No acute disease. Moderate hiatal hernia Interpreted and Authenticated by: Colin Evans 05/22/23
[2023-05-22 10:00] LABS: ALT/SGPT 19 U/L (<40); AST/SGOT 18 U/L (<32); Albumin 3.9 gm/dL (3.2-5.2); Albumin/Globulin Ratio 1.6 (1.0-2.3); Alkaline Phosphatase 200 U/L (39-117); Bilirubin,Direct < 0.2 mg/dL (0-0.3); Bilirubin,Total 0.5 mg/dL (0.1-1.0); Blood Urea Nitrogen 19 mg/dL (8-23); Calcium 9.6 mg/dL (8.6-10.4); Carbon Dioxide 22 mmol/L (22-30); Chloride 100 mmol/L (96-108); Globulin 2.5 gm/dL (2.2-3.7); Glomerular Filtration Rate 65; Glucose 104 mg/dL (70-105); Lactate Dehydrogenase 311 U/L (135-225); Phosphorous 4.7 mg/dL (2.5-4.5); Triglycerides 177 mg/dL (<150); Uric Acid 5.9 mg/dL (2.5-8.0); proBNP 445.8 pg/mL (<125.0)
--- NOTE | 2023-05-22 12:08 | Internal Med Progress Note ---
SUBJECTIVE Subjective Patient information: Note initiated : 05/22/23 at 12:07 pm Service Date, if different from initiated Date: [] Patient: Nuzhat Donis 67 y/o F admitted on 05/21/23. Chief Complaint: [] Interval history: Ms. Donis is a 67 year old female with a history of severe COPD, chronic hypoxia requiring 3 L/min oxygen supplementation at baseline, on chronic prednisone for COPD, osteoporosis, GERD, type 2 diabetes mellitus, obstructive sleep apnea who presented to the hospital for back pain. The patient was found to have vertebral compression fractures at T11, T12, L1, L2 and L5. The compression fracture at T12 was severe, all other compression fractures were felt to be mild. The the compression fractures were new compared to a CT scan 2 months prior and likely accounted for the patient's back pain. The patient was at her baseline oxygen requirement in the ED, she does have leukocytosis however was afebrile. Leukocytosis could be stress induced or secondary to steroids. The patient is on prednisone 15 mg daily chronically. Hospital medicine was asked to admit the patient for pain management. 05/22. Patient was more dyspneic this morning, chest x-ray obtained and did not show any acute changes. ABG showed normal pH, normal PCO2, PO2 64. BNP 445.8 however the patient does not appear to be volume overloaded. She does have a significant amount of wheezing. She was started on Solu-Medrol IV, home prednisone held for now. Scheduled DuoNebs and as needed albuterol nebs. The patient later recovered. At her baseline oxygen requirement of 3 L/min. Suspect anxiety to be playing a role the patient's symptoms. For pain control, I continued scheduled off her med, added scheduled Toradol, continue as needed oxycodone and IV Dilaudid. Physical exam Head: Atraumatic, normal inspection. Eyes: normal appearance, no scleral icterus. Neck: full ROM Respiratory: 3 L/min nasal cannula oxygen supplementation, diminished breath sound bilaterally Cardiovascular: normal rate and rhythm, S1, S2. GI/Abdominal: soft, nontender, no guarding. Extremities: Tender to his to palpation in mid back. Neurological: CN II-XII intact, intact motor, intact sensation. Psychiatric: normal mood. Skin: warm, normal color Constitutional Vitals: Vital Signs Temp Pulse Resp BP Pulse Ox O2 Del Method O2 Flow Rate 98.0 F 91 H 21 186/96 91 Nasal Cannula 3 05/22/23 08:00 05/22/23 10:49 05/22/23 10:49 05/22/23 08:00 05/22/23 10:49 05/22/23 10:49 05/22/23 10:49 Period Temp Pulse Resp BP Sys/Gorman Pulse Ox O2 Del Method O2 Flow Rate Last 24 Hr 97.1 F-98.2 F 90-111 16-30 124-186/56-105 90-99 Nasal Cannula- Nasal Cannula 2-5 Intake and Output 05/22/23 05/22/23 05/22/23 03:59 11:59 19:59 Intake Total 300 100 Balance 300 100 Intake & Output: Intake & Output 05/22/23 05/22/23 05/22/23 03:59 11:59 19:59 Intake Total 300 100 Balance 300 100 Intake: IV 100 100 Oral 200 Other: Urine Appearance Clear Urine Color Yellow # Voids 1 OBJ DATA Labs 05/22/23 07:39 05/22/23 07:39 Labs: Abnormal Lab Results 05/22/23 05/22/23 05/22/23 08:27 07:39 07:39 WBC RDW Immature Gran % (Auto) 1.4 H [place] # (Auto) Immature Gran # 0.14 H Absolute Neutrophils POC pO2 64 L Hgb O2 Saturation 91.0 L Potassium 5.4 H Phosphorus 4.7 H GGT 37 H Alkaline Phosphatase 200 H Lactate Dehydrogenase 311 H NT-Pro-B Natriuret Pep 445.8 H Triglycerides 177 H Procalcitonin 05/21/23 05/21/23 05/21/23 14:45 01:50 01:50 WBC RDW Immature Gran % (Auto) [place] # (Auto) Immature Gran # Absolute Neutrophils POC pO2 Hgb O2 Saturation Potassium Phosphorus GGT Alkaline Phosphatase 191 H 191 H Lactate Dehydrogenase 292 H NT-Pro-B Natriuret Pep Triglycerides 230 H Procalcitonin 0.19 H 05/21/23 05/21/23 01:50 01:50 WBC 13.0 H RDW 14.7 H Immature Gran % (Auto) 3.0 H [place] # (Auto) 1.13 H Immature Gran # 0.39 H Absolute Neutrophils 8.04 H POC pO2 Hgb O2 Saturation Potassium Phosphorus GGT Alkaline Phosphatase Lactate Dehydrogenase NT-Pro-B Natriuret Pep 175.9 H Triglycerides Procalcitonin Meds: Medications Albuterol Sulfate (Albuterol Sulfate 2.5 Mg/3 Ml Nebulizer) 2.5 mg NEB Q2HP PRN PRN Reason: Shortness Of Breath Albuterol/Ipratropium (Ipratropium/Albuterol 3 Ml Ampul.Neb) 3 ml NEB Q4HRT [facility] Last Admin: 05/22/23 10:48 Dose: 3 ml Alprazolam (Alprazolam 0.25 Mg Tablet) 0.25 mg PO TIDP PRN PRN Reason: Anxiety Last Admin: 05/22/23 05:54 Dose: 0.25 mg Budesonide (Budesonide 0.5 Mg/2 Ml Ampul.Neb) 0.5 mg NEB BID [facility] Last Admin: 05/22/23 07:00 Dose: 0.5 mg Dextrose (Dextrose 50% 50 Ml Vial) 0 ml IV UD PRN PRN Reason: Per Sliding Scale Diagnostic Test (Pha) (Accu-Chek 1 Each Strip) 1 each FS ACHS [facility] Last Admin: 05/22/23 07:35 Dose: 1 each Ezetimibe (Ezetimibe 10 Mg Tablet) 10 mg PO QDAY [facility] Last Admin: 05/22/23 08:32 Dose: 10 mg Enoxaparin Sodium (Enoxaparin 40 Mg/0.4 Ml Syringe) 40 mg SQ DAILY [facility] Last Admin: 05/22/23 08:32 Dose: 40 mg Glucose (Dextrose 31 Gm Oral.Susp) 15 gm PO PRN PRN PRN Reason: Hypoglycemia Hydromorphone HCl (Hydromorphone 0.5 Mg/0.5 Ml Syringe) 0.5 - 1 mg IV Q2HP PRN; Protocol PRN Reason: Per Pain Protocol Last Admin: 05/22/23 08:30 Dose: 1 mg Hydroxyzine HCl (Hydroxyzine 25 Mg Tablet) 25 mg PO TIDP PRN PRN Reason: Anxiety Last Admin: 05/22/23 04:10 Dose: 25 mg Acetaminophen (Ofirmev) 1,000 mg in 100 mls @ 200 mls/hr IV Q8H [facility]; Protocol Last Infusion: 05/22/23 07:35 Dose: Infused Insulin Human Lispro (Insulin Lispro 1 Unit/0.01 Ml Unit) 0 unit SQ ACHS [facility]; Protocol Last Admin: 05/22/23 07:35 Dose: Not Given Ketorolac Tromethamine (Ketorolac 30 Mg/Ml Vial) 15 mg IV Q6 [facility] Stop: 05/23/23 06:01 Methocarbamol (Methocarbamol 750 Mg Tablet) 750 mg PO TID [facility] Last Admin: 05/22/23 08:32 Dose: 750 mg Methylprednisolone Sodium Succinate (Methylprednisolone Sod Succ 125 Mg/2 Ml Vial) 62.5 mg IV Q12 [facility] Montelukast Sodium (Montelukast 10 Mg Tablet) 10 mg PO QHS [facility] Last Admin: 05/21/23 21:55 Dose: 10 mg Naloxone HCl (Naloxone Hcl 0.4 Mg/Ml Vial) 0.4 mg IV Q10M PRN PRN Reason: Opiate Reversal Omeprazole (Omeprazole 20 Mg Capsule) 20 mg PO ACB [facility] Last Admin: 05/22/23 07:03 Dose: 20 mg Ondansetron HCl (Ondansetron 4 Mg/2 Ml Vial) 4 mg IV Q6HP PRN PRN Reason: Nausea And Vomiting Oxycodone HCl (Oxycodone Ir 5 Mg Tablet) 5 - 10 mg PO Q4HP PRN; Protocol PRN Reason: Per Pain Protocol Last Admin: 05/22/23 08:31 Dose: 10 mg Polyethylene Glycol (Polyethylene Glycol 3350 17 Gm Packet) 17 gm PO DAILY [facility] Last Admin: 05/22/23 08:32 Dose: 17 gm Senna/Docusate Sodium (Sennosides/Docusate Sodium 1 Tab Tablet) 1 tab PO BID [facility] Last Admin: 05/22/23 08:32 Dose: 1 tab Sodium Chloride (0.9 % Sodium Chloride 10 Ml Syringe) 10 ml IV Q8 [facility] Last Admin: 05/22/23 04:02 Dose: Not Given A/P Narrative A/P Narrative: Assessment: 67 year old female with severe COPD on prednisone, chronic hypoxia requiring 3L/min oxygen supplementation, admitted for back pain secondary to multiple compression fractures the most severe being at T12. The patient also has milder compression fractures at T11, L1, L2, and L5. #Intractable back pain secondary to multiple compression fractures, most severe at T12 #Possible COPD exacerbation #End-stage COPD, chronic hypoxia requiring 3 L/min oxygen at baseline #Dyslipidemia #Anxiety disorder #GERD #Obstructive sleep apnea Plan: -Scheduled and as needed analgesics. -TLSO brace as tolerated when out of bed. -Solu-Medrol IV for now, transition back to prednisone in 1 to 2 days. -Scheduled DuoNebs as needed albuterol nebs. -Continue home alprazolam, budesonide, ezetimibe, hydroxyzine, montelukast, Prilosec. -CPAP at bedtime. -PT and OT. -DVT prophylaxis: Lovenox. -CODE STATUS: Limited. Time Spent With Patient Time: Total time spent is greater than 50% in coordination of care (as documented) at patient's floor/unit and/or counseling patient: QUALITY Stroke Symptom Onset Unknown: No VTE Deep Vein Thrombosis/Pulmonary Embolism Present on Admission: No
[2023-05-22] MEDS: KETOROLAC 30 MG/ML VIAL IV SCH ×2 (12:15→17:54)
[2023-05-22] MEDS: MONTELUKAST 10 MG TABLET PO SCH (21:25)
[2023-05-23] MEDS: KETOROLAC 30 MG/ML VIAL IV SCH ×2 (00:15→05:09)
[2023-05-23] MEDS: IPRATROPIUM/ALBUTEROL 3 ML AMPUL.NEB NEB SCH ×6 (02:49→22:19)
[2023-05-23] MEDS: oxyCODONE IR 5 MG TABLET PO PRN ×3 (02:53→17:14)
[2023-05-23] MEDS: HYDROmorphone 0.5 MG/0.5 ML SYRINGE IV PRN ×4 (05:00→18:47)
[2023-05-23] MEDS: 0.9 % SODIUM CHLORIDE 10 ML SYRINGE IV SCH ×3 (05:11→21:35)
[2023-05-23] MEDS: BUDESONIDE 0.5 MG/2 ML AMPUL.NEB NEB SCH ×3 (06:20→22:06)
[2023-05-23] MEDS: ACETAMINOPHEN 1,000 MG/100 ML BAG IV SCH ×3 (07:21→22:33)
[2023-05-23 07:29] LABS: Basophils # (Auto) 0.03 K/mcL (0.00-0.30); Basophils % (Auto) 0.3 % (0.0-2.0); Eosinophils # (Auto) 0.04 K/mcL (0.00-0.70); Eosinophils % (Auto) 0.3 % (0.0-7.0); Hematocrit 34.7 % (34.1-44.9); Hemoglobin 11.2 g/dL (11.2-15.7); Lymphocytes # (Auto) 1.34 K/mcL (1.50-4.80); Lymphocytes % (Auto) 11.2 % (15.5-49.0); Mean Cell Volume 88.7 fL (80.0-100.0); Mean Corpuscular HGB Conc 32.3 g/dL (31.0-36.0); Mean Platelet Volume 10.2 fL (8.8-12.5); Monocytes # (Auto) 1.08 K/mcL (0.10-0.90); Monocytes % (Auto) 9.1 % (1.0-12.0); Neutrophils % (Auto) 76.6 % (38.0-78.0); Platelet Count 290 K/mcL (140-440); RBC 3.91 M/mcL (3.59-5.38); Red Cell Distribution Width 14.3 % (11.5-14.5); WBC 11.9 K/mcL (4.5-11.0)
[2023-05-23] MEDS: OMEPRAZOLE 20 MG CAPSULE PO SCH (07:33)
[2023-05-23] MEDS: ALPRAZolam 0.25 MG TABLET PO PRN (07:33)
[2023-05-23 07:47] LABS: Albumin 3.6 gm/dL (3.2-5.2); Blood Urea Nitrogen 23 mg/dL (8-23); Calcium 10.1 mg/dL (8.6-10.4); Carbon Dioxide 24 mmol/L (22-30); Chloride 102 mmol/L (96-108); Glomerular Filtration Rate 58; Glucose 102 mg/dL (70-105)
[2023-05-23] MEDS: INSULIN LISPRO 1 UNIT/0.01 ML UNIT SQ SCH ×4 (07:49→21:34)
[2023-05-23] MEDS ORDERED: predniSONE 20 MG TABLET PO SCH (08:00)
[2023-05-23] MEDS: EZETIMIBE 10 MG TABLET PO SCH (08:02)
[2023-05-23] MEDS: METHOCARBAMOL 750 MG TABLET PO SCH ×3 (08:02→21:35)
[2023-05-23] MEDS: SENNOSIDES/DOCUSATE SODIUM 1 TAB TABLET PO SCH ×2 (08:02→21:30)
[2023-05-23] MEDS: ENOXAPARIN 40 MG/0.4 ML SYRINGE SQ SCH (08:02)
[2023-05-23] MEDS: POLYETHYLENE GLYCOL 3350 17 GM PACKET PO SCH (08:02)
--- NOTE | 2023-05-23 08:41 | Internal Med Progress Note ---
SUBJECTIVE Subjective Patient information: Note initiated : 05/23/23 at 8:39 am Service Date, if different from initiated Date: [] Patient: Nuzhat Donis 67 y/o F admitted on 05/21/23. Chief Complaint: [] Interval history: Ms. Donis is a 67 year old female with a history of severe COPD, chronic hypoxia requiring 3 L/min oxygen supplementation at baseline, on chronic prednisone for COPD, osteoporosis, GERD, type 2 diabetes mellitus, obstructive sleep apnea who presented to the hospital for back pain. The patient was found to have vertebral compression fractures at T11, T12, L1, L2 and L5. The compression fracture at T12 was severe, all other compression fractures were felt to be mild. The the compression fractures were new compared to a CT scan 2 months prior and likely accounted for the patient's back pain. The patient was at her baseline oxygen requirement in the ED, she does have leukocytosis however was afebrile. Leukocytosis could be stress induced or secondary to steroids. The patient is on prednisone 15 mg daily chronically. Hospital medicine was asked to admit the patient for pain management. 05/22. Patient was more dyspneic this morning, chest x-ray obtained and did not show any acute changes. ABG showed normal pH, normal PCO2, PO2 64. BNP 445.8 however the patient does not appear to be volume overloaded. She does have a significant amount of wheezing. She was started on Solu-Medrol IV, home prednisone held for now. Scheduled DuoNebs and as needed albuterol nebs. The patient later recovered. At her baseline oxygen requirement of 3 L/min. Suspect anxiety to be playing a role the patient's symptoms. For pain control, I continued scheduled off her med, added scheduled Toradol, continue as needed o xycodone and IV Dilaudid. 05/23. No significant events reported overnight, patient continues on 3 L/min nasal cannula oxygen supplementation. She is in a significant amount of pain this morning and feels anxious. So far unable to obtain a TLSO brace. Transfer to [facility]. Physical exam Head: Atraumatic, normal inspection. Eyes: normal appearance, no scleral icterus. Neck: full ROM Respiratory: 3 L/min nasal cannula oxygen supplementation, diminished breath sound bilaterally Cardiovascular: normal rate and rhythm, S1, S2. GI/Abdominal: soft, nontender, no guarding. Extremities: Tender to his to palpation in mid back. Neurological: CN II-XII intact, intact motor, intact sensation. Psychiatric: normal mood. Skin: warm, normal color Constitutional Vitals: Vital Signs Temp Pulse Resp BP Pulse Ox O2 Del Method O2 Flow Rate 97.4 F 93 H 25 H 160/76 96 Nasal Cannula 3 05/23/23 08:01 05/23/23 08:01 05/23/23 06:21 05/23/23 08:01 05/23/23 08:01 05/23/23 08:01 05/23/23 08:01 Period Temp Pulse Resp BP Sys/Gorman Pulse Ox O2 Del Method O2 Flow Rate Last 24 Hr 97.2 F-98.5 F 91-116 18-40 118-174/59-97 88-98 CPAP-Nasal Cannula 3-4.5 Intake and Output 05/22/23 05/23/23 05/23/23 19:59 03:59 11:59 Intake Total 1120 100 250 Output Total 1150 300 300 Balance -30 -200 -50 Weight 80.921 kg 77.564 kg Intake & Output: Intake & Output 05/22/23 05/23/23 05/23/23 19:59 03:59 11:59 Intake Total 1120 100 250 Output Total 1150 300 300 Balance -30 -200 -50 Weight 80.921 kg 77.564 kg Intake: IV 100 100 Oral 540 250 GI Tube Flush 480 Output: Void Amount 1150 300 300 Other: Meal Dinner Percent of Meal Consumed 75% Feeding Ability Independent Urine Appearance Clear Clear Clear Urine Color Yellow Yellow Yellow Urine Odor Normal Normal Normal Stool Size Moderate Small Small Stool Color Brown Brown Brown Stool Consistency Soft Soft Soft Loose Loose Loose # Bowel Movements 1 1 1 OBJ DATA Labs 05/23/23 07:00 05/23/23 07:00 Labs: Abnormal Lab Results 05/23/23 05/22/23 05/22/23 07:00 08:27 07:39 WBC 11.9 H RDW Immature Gran % (Auto) 2.5 H 1.4 H Lymph % (Auto) 11.2 L Lymph # (Auto) 1.34 L [place] # (Auto) 1.08 H Immature Gran # 0.30 H 0.14 H Absolute Neutrophils 9.13 H POC pO2 64 L Hgb O2 Saturation 91.0 L Potassium Phosphorus GGT Alkaline Phosphatase Lactate Dehydrogenase NT-Pro-B Natriuret Pep Triglycerides Procalcitonin 05/22/23 05/21/23 05/21/23 07:39 14:45 01:50 WBC RDW Immature Gran % (Auto) Lymph % (Auto) Lymph # (Auto) [place] # (Auto) Immature Gran # Absolute Neutrophils POC pO2 Hgb O2 Saturation Potassium 5.4 H Phosphorus 4.7 H GGT 37 H Alkaline Phosphatase 200 H 191 H 191 H Lactate Dehydrogenase 311 H 292 H NT-Pro-B Natriuret Pep 445.8 H Triglycerides 177 H 230 H Procalcitonin 05/21/23 05/21/23 05/21/23 01:50 01:50 01:50 WBC 13.0 H RDW 14.7 H Immature Gran % (Auto) 3.0 H Lymph % (Auto) Lymph # (Auto) [place] # (Auto) 1.13 H Immature Gran # 0.39 H Absolute Neutrophils 8.04 H POC pO2 Hgb O2 Saturation Potassium Phosphorus GGT Alkaline Phosphatase Lactate Dehydrogenase NT-Pro-B Natriuret Pep 175.9 H Triglycerides Procalcitonin 0.19 H Meds: Medications Albuterol Sulfate (Albuterol Sulfate 2.5 Mg/3 Ml Nebulizer) 2.5 mg NEB Q2HP PRN PRN Reason: Shortness Of Breath Albuterol/Ipratropium (Ipratropium/Albuterol 3 Ml Ampul.Neb) 3 ml NEB Q4HRT [facility] Last Admin: 05/23/23 06:20 Dose: 3 ml Alprazolam (Alprazolam 0.25 Mg Tablet) 0.25 mg PO TIDP PRN PRN Reason: Anxiety Last Admin: 05/23/23 07:33 Dose: 0.25 mg Budesonide (Budesonide 0.5 Mg/2 Ml Ampul.Neb) 0.5 mg NEB BID [facility] Last Admin: 05/23/23 06:20 Dose: 0.5 mg Dextrose (Dextrose 50% 50 Ml Vial) 0 ml IV UD PRN PRN Reason: Per Sliding Scale Diagnostic Test (Pha) (Accu-Chek 1 Each Strip) 1 each FS ACHS [facility] Last Admin: 05/23/23 07:49 Dose: 1 each Ezetimibe (Ezetimibe 10 Mg Tablet) 10 mg PO QDAY [facility] Last Admin: 05/23/23 08:02 Dose: 10 mg Enoxaparin Sodium (Enoxaparin 40 Mg/0.4 Ml Syringe) 40 mg SQ DAILY [facility] Last Admin: 05/23/23 08:02 Dose: 40 mg Glucose (Dextrose 31 Gm Oral.Susp) 15 gm PO PRN PRN PRN Reason: Hypoglycemia Hydromorphone HCl (Hydromorphone 0.5 Mg/0.5 Ml Syringe) 0.5 - 1 mg IV Q2HP PRN; Protocol PRN Reason: Per Pain Protocol Last Admin: 05/23/23 05:00 Dose: 0.5 mg Hydroxyzine HCl (Hydroxyzine 25 Mg Tablet) 25 mg PO TIDP PRN PRN Reason: Anxiety Last Admin: 05/22/23 12:16 Dose: 25 mg Acetaminophen (Ofirmev) 1,000 mg in 100 mls @ 200 mls/hr IV Q8H [facility]; Protocol Last Admin: 05/23/23 07:21 Dose: 200 mls/hr Insulin Human Lispro (Insulin Lispro 1 Unit/0.01 Ml Unit) 0 unit SQ ACHS [facility]; Protocol Last Admin: 05/23/23 07:49 Dose: Not Given Methocarbamol (Methocarbamol 750 Mg Tablet) 750 mg PO TID [facility] Last Admin: 05/23/23 08:02 Dose: 750 mg Methylprednisolone Sodium Succinate (Methylprednisolone Sod Succ 125 Mg/2 Ml Vial) 62.5 mg IV Q12 [facility] Last Admin: 05/23/23 08:02 Dose: 62.5 mg Montelukast Sodium (Montelukast 10 Mg Tablet) 10 mg PO QHS [facility] Last Admin: 05/22/23 21:25 Dose: 10 mg Naloxone HCl (Naloxone Hcl 0.4 Mg/Ml Vial) 0.4 mg IV Q10M PRN PRN Reason: Opiate Reversal Omeprazole (Omeprazole 20 Mg Capsule) 20 mg PO ACB [facility] Last Admin: 05/23/23 07:33 Dose: 20 mg Ondansetron HCl (Ondansetron 4 Mg/2 Ml Vial) 4 mg IV Q6HP PRN PRN Reason: Nausea And Vomiting Oxycodone HCl (Oxycodone Ir 5 Mg Tablet) 5 - 10 mg PO Q4HP PRN; Protocol PRN Reason: Per Pain Protocol Last Admin: 05/23/23 07:33 Dose: 10 mg Polyethylene Glycol (Polyethylene Glycol 3350 17 Gm Packet) 17 gm PO DAILY [facility] Last Admin: 05/23/23 08:02 Dose: 17 gm Senna/Docusate Sodium (Sennosides/Docusate Sodium 1 Tab Tablet) 1 tab PO BID [facility] Last Admin: 05/23/23 08:02 Dose: 1 tab Sodium Chloride (0.9 % Sodium Chloride 10 Ml Syringe) 10 ml IV Q8 [facility] Last Admin: 05/23/23 05:11 Dose: 10 ml A/P Narrative A/P Narrative: Assessment: 67 year old female with dyslipidemia, anxiety disorder, GERD, end stage COPD on prednisone 15 mg daily at baseline, chronic hypoxia requiring 3L/min oxygen supplementation, obstructive sleep apnea admitted for back pain secondary to multiple compression fractures the most severe being at T12. The patient also has milder compression fractures at T11, L1, L2, and L5. #Intractable back pain secondary to multiple compression fractures, most severe at T12 #Possible COPD exacerbation #End-stage COPD, chronic hypoxia requiring 3 L/min oxygen at baseline #Leukocytosis likely steroid-induced #Resolved hyperkalemia #Dyslipidemia #Anxiety disorder #GERD #Obstructive sleep apnea Plan: -Analgesics: Scheduled off her med, as needed Toradol, lidocaine patch, as needed oxycodone, as needed IV Dilaudid, Robaxin TID. -TLSO brace if possible to obtain when out of bed. -Transition to prednisone 40 mg daily, discontinue Solu-Medrol IV, complete 5 days of high dose steroid treatment then transition back to home prednisone 15 mg daily. -Oxygen supplementation, goal SPO2 88 to 92% for COPD. -Scheduled DuoNebs as needed albuterol nebs. -Ativan as needed for anxiety, holding home alprazolam for now. -Continue home budesonide, ezetimibe, hydroxyzine, montelukast, Prilosec. -CPAP at bedtime. -PT and OT. -If the patient's back pain developes into chronic pain, consider adding duloxetine. -Consider vertebroplasty of T12 compression fracture if pain does not begin to improve soon. -DVT prophylaxis: Lovenox. -CODE STATUS: Limited. Time Spent With Patient Time: Total time spent is greater than 50% in coordination of care (as documented) at patient's floor/unit and/or counseling patient: QUALITY Stroke Symptom Onset Unknown: No VTE Deep Vein Thrombosis/Pulmonary Embolism Present on Admission: No
[2023-05-23] MEDS ORDERED: methylPREDNISolone SOD SUCC 125 MG/2 ML VIAL IV SCH (09:00)
[2023-05-23] MEDS ORDERED: DEXTROSE 5%-NS 1,000 ML IV SCH (10:30)
[2023-05-23] MEDS: LIDOCAINE PATCH TOPICAL SCH (11:10)
[2023-05-23] MEDS: KETOROLAC 15 MG/ML VIAL IV PRN (11:56)
[2023-05-23] MEDS: LORazepam 2 MG/ML VIAL IV PRN ×2 (11:56→14:30)
--- NOTE | 2023-05-23 13:49 | Internal Med Progress Note ---
SUBJECTIVE Subjective Patient information: Note initiated : 05/23/23 at 1:45 pm Service Date, if different from initiated Date: [] Patient: Nuzhat Donis 67 y/o F admitted on 05/21/23. Chief Complaint: [] Interval history: Ms. Donis is a 67 year old female with a history of severe COPD, chronic hypoxia requiring 3 L/min oxygen supplementation at baseline, on chronic prednisone for COPD, osteoporosis, GERD, type 2 diabetes mellitus, obstructive sleep apnea who presented to the hospital for back pain. The patient was found to have vertebral compression fractures at T11, T12, L1, L2 and L5. The compression fracture at T12 was severe, all other compression fractures were felt to be mild. The the compression fractures were new compared to a CT scan 2 months prior and likely accounted for the patient's back pain. The patient was at her baseline oxygen requirement in the ED, she does have leukocytosis however was afebrile. Leukocytosis could be stress induced or secondary to steroids. The patient is on prednisone 15 mg daily chronically. Hospital medicine was asked to admit the patient for pain management. 05/22. Patient was more dyspneic this morning, chest x-ray obtained and did not show any acute changes. ABG showed normal pH, normal PCO2, PO2 64. BNP 445.8 however the patient does not appear to be volume overloaded. She does have a significant amount of wheezing. She was started on Solu-Medrol IV, home prednisone held for now. Scheduled DuoNebs and as needed albuterol nebs. The patient later recovered. At her baseline oxygen requirement of 3 L/min. Suspect anxiety to be playing a role the patient's symptoms. For pain control, I continued scheduled off her med, added scheduled Toradol, continue as needed o xycodone and IV Dilaudid. 05/23. No significant events reported overnight, patient continues on 3 L/min nasal cannula oxygen supplementation. She is in a significant amount of pain this morning and feels anxious. So far unable to obtain a TLSO brace. Transfer to [facility]. 05/24 Review of Systems: denies headache/fever/chills/nausea/vomiting/chest or abdominal pain/cough/dyspnea/diarrhea. Otherwise see above. PHYSICAL EXAM General: Alert, Awake, No acute Distress Eyes/N/T: EOMI, no scleral icterus, Head/Neck: neck supple, full ROM, CV: RRR, No murmurs, Pulm: Diminished b/l, no wheezing/rhonchi/rales, no respiratory distress, supp O2 Abd: soft, nontender, +BS x4 Ext: no clubbing/cyanosis/edema, nontender Neuro: Alert, no focal deficits, moves all extremities, , sensations intact b/l upper/lower Psychiatric: Skin: warm/dry, normal color Constitutional Vitals: Vital Signs Temp Pulse Resp BP Pulse Ox O2 Del Method O2 Flow Rate 97.5 F 96 H 20 147/70 96 Nasal Cannula 3 05/23/23 11:58 05/23/23 11:58 05/23/23 11:58 05/23/23 11:58 05/23/23 11:58 05/23/23 11:58 05/23/23 11:58 Period Temp Pulse Resp BP Sys/Gorman Pulse Ox O2 Del Method O2 Flow Rate Last 24 Hr 97.2 F-98.5 F 91-116 18-40 118-174/59-97 88-98 CPAP-Nasal Cannula 3-4.5 Intake and Output 05/23/23 05/23/23 05/23/23 03:59 11:59 19:59 Intake Total 100 350 Output Total 300 1025 Balance -200 -675 Weight 77.564 kg Intake & Output: Intake & Output 05/23/23 05/23/23 05/23/23 03:59 11:59 19:59 Intake Total 100 350 Output Total 300 1025 Balance -200 -675 Weight 77.564 kg Intake: IV 100 100 Oral 250 Output: Void Amount 300 1025 Other: Meal Breakfast Percent of Meal Consumed 100% Feeding Ability Assist with Tray Set Up Urine Appearance Clear Clear Urine Color Yellow Yellow Urine Odor Normal Normal Stool Size Small Smear Stool Color Brown Brown Stool Consistency Soft Watery Loose Loose # Bowel Movements 1 1 OBJ DATA Labs 05/23/23 07:00 05/23/23 07:00 Labs: Abnormal Lab Results 05/23/23 05/22/23 05/22/23 07:00 08:27 07:39 WBC 11.9 H RDW Immature Gran % (Auto) 2.5 H 1.4 H Lymph % (Auto) 11.2 L Lymph # (Auto) 1.34 L [place] # (Auto) 1.08 H Immature Gran # 0.30 H 0.14 H Absolute Neutrophils 9.13 H POC pO2 64 L Hgb O2 Saturation 91.0 L Potassium Phosphorus GGT Alkaline Phosphatase Lactate Dehydrogenase NT-Pro-B Natriuret Pep Triglycerides Procalcitonin 05/22/23 05/21/23 05/21/23 07:39 14:45 01:50 WBC RDW Immature Gran % (Auto) Lymph % (Auto) Lymph # (Auto) [place] # (Auto) Immature Gran # Absolute Neutrophils POC pO2 Hgb O2 Saturation Potassium 5.4 H Phosphorus 4.7 H GGT 37 H Alkaline Phosphatase 200 H 191 H 191 H Lactate Dehydrogenase 311 H 292 H NT-Pro-B Natriuret Pep 445.8 H Triglycerides 177 H 230 H Procalcitonin 05/21/23 05/21/23 05/21/23 01:50 01:50 01:50 WBC 13.0 H RDW 14.7 H Immature Gran % (Auto) 3.0 H Lymph % (Auto) Lymph # (Auto) [place] # (Auto) 1.13 H Immature Gran # 0.39 H Absolute Neutrophils 8.04 H POC pO2 Hgb O2 Saturation Potassium Phosphorus GGT Alkaline Phosphatase Lactate Dehydrogenase NT-Pro-B Natriuret Pep 175.9 H Triglycerides Procalcitonin 0.19 H Meds: Medications Albuterol Sulfate (Albuterol Sulfate 2.5 Mg/3 Ml Nebulizer) 2.5 mg NEB Q2HP PRN PRN Reason: Shortness Of Breath Albuterol/Ipratropium (Ipratropium/Albuterol 3 Ml Ampul.Neb) 3 ml NEB Q4HRT [facility] Last Admin: 05/23/23 10:23 Dose: 3 ml Budesonide (Budesonide 0.5 Mg/2 Ml Ampul.Neb) 0.5 mg NEB BID [facility] Last Admin: 05/23/23 06:20 Dose: 0.5 mg Dextrose (Dextrose 50% 50 Ml Vial) 0 ml IV UD PRN PRN Reason: Per Sliding Scale Diagnostic Test (Pha) (Accu-Chek 1 Each Strip) 1 each FS ACHS [facility] Last Admin: 05/23/23 12:15 Dose: 1 each Ezetimibe (Ezetimibe 10 Mg Tablet) 10 mg PO QDAY [facility] Last Admin: 05/23/23 08:02 Dose: 10 mg Enoxaparin Sodium (Enoxaparin 40 Mg/0.4 Ml Syringe) 40 mg SQ DAILY [facility] Last Admin: 05/23/23 08:02 Dose: 40 mg Glucose (Dextrose 31 Gm Oral.Susp) 15 gm PO PRN PRN PRN Reason: Hypoglycemia Hydromorphone HCl (Hydromorphone 0.5 Mg/0.5 Ml Syringe) 0.5 - 1 mg IV Q2HP PRN; Protocol PRN Reason: Per Pain Protocol Last Admin: 05/23/23 13:23 Dose: 0.5 mg Hydroxyzine HCl (Hydroxyzine 25 Mg Tablet) 25 mg PO TIDP PRN PRN Reason: Anxiety Last Admin: 05/22/23 12:16 Dose: 25 mg Acetaminophen (Ofirmev) 1,000 mg in 100 mls @ 200 mls/hr IV Q8H [facility]; Protocol Last Infusion: 05/23/23 08:00 Dose: Infused Insulin Human Lispro (Insulin Lispro 1 Unit/0.01 Ml Unit) 0 unit SQ ACHS [facility]; Protocol Last Admin: 05/23/23 12:49 Dose: 1 unit Ketorolac Tromethamine (Ketorolac 15 Mg/Ml Vial) 15 mg IV Q6HP PRN PRN Reason: pain Stop: 05/26/23 08:44 Last Admin: 05/23/23 11:56 Dose: 15 mg Lidocaine (Lidocaine Patch) 1 patch TOPICAL DAILY@1000 [place] Last Admin: 05/23/23 11:10 Dose: 1 patch Lorazepam (Lorazepam 2 Mg/Ml Vial) 0.5 mg IV Q2HP PRN PRN Reason: ANXIETY/SEDATION Last Admin: 05/23/23 11:56 Dose: 0.5 mg Methocarbamol (Methocarbamol 750 Mg Tablet) 750 mg PO TID [facility] Last Admin: 05/23/23 08:02 Dose: 750 mg Montelukast Sodium (Montelukast 10 Mg Tablet) 10 mg PO QHS [facility] Last Admin: 05/22/23 21:25 Dose: 10 mg Naloxone HCl (Naloxone Hcl 0.4 Mg/Ml Vial) 0.4 mg IV Q10M PRN PRN Reason: Opiate Reversal Omeprazole (Omeprazole 20 Mg Capsule) 20 mg PO ACB [facility] Last Admin: 05/23/23 07:33 Dose: 20 mg Ondansetron HCl (Ondansetron 4 Mg/2 Ml Vial) 4 mg IV Q6HP PRN PRN Reason: Nausea And Vomiting Oxycodone HCl (Oxycodone Ir 5 Mg Tablet) 5 - 10 mg PO Q4HP PRN; Protocol PRN Reason: Per Pain Protocol Last Admin: 05/23/23 07:33 Dose: 10 mg Polyethylene Glycol (Polyethylene Glycol 3350 17 Gm Packet) 17 gm PO DAILY [facility] Last Admin: 05/23/23 08:02 Dose: 17 gm Prednisone (Prednisone 20 Mg Tablet) [address] [facility] Senna/Docusate Sodium (Sennosides/Docusate Sodium 1 Tab Tablet) 1 tab PO BID [facility] Last Admin: 05/23/23 08:02 Dose: 1 tab Sodium Chloride (0.9 % Sodium Chloride 10 Ml Syringe) 10 ml IV Q8 [facility] Last Admin: 05/23/23 13:23 Dose: 10 ml A/P Narrative A/P Narrative: A: #Intractable back pain: 2/2 multiple compression fractures, most severe at T12 #Possible COPD exacerbation End-stage w/chronic hypoxic respiratory failure(3- 4L@home): - on chornic prednisone #Leukocytosis likely steroid-induced #Resolved hyperkalemia #Dyslipidemia #Anxiety disorder #GERD #Obstructive sleep apnea Plan: -Analgesics: Scheduled off her med, as needed Toradol, lidocaine patch, as needed oxycodone, as needed IV Dilaudid, Robaxin TID -TLSO brace if possible to obtain when out of bed. -Transition to prednisone 40 mg daily, discontinue Solu-Medrol IV, complete 5 days of high dose steroid treatment then transition back to home prednisone 15 mg daily. -Oxygen supplementation, goal SPO2 88 to 92% for COPD. -Scheduled DuoNebs as needed albuterol nebs. -Ativan as needed for anxiety, holding home alprazolam for now. -Continue home budesonide, ezetimibe, hydroxyzine, montelukast, Prilosec. -CPAP at bedtime. -PT and OT. -If the patient's back pain develops into chronic pain, consider adding duloxetine. -Consider vertebroplasty of T12 compression fracture if pain does not begin to improve soon. -DVT prophylaxis: Lovenox CODE STATUS: Limited Time Spent With Patient Time: Total time spent is greater than 50% in coordination of care (as documented) at patient's floor/unit and/or counseling patient: QUALITY Stroke Symptom Onset Unknown: No VTE Deep Vein Thrombosis/Pulmonary Embolism Present on Admission: No
--- NOTE | 2023-05-23 16:19 | Magnetic Resonance Report ---
CLINICAL INFORMATION: COMPARISON: None. TECHNIQUE: Sagittal T1 FLAIR, STIR, fast spin echo T2, axial T2 weighted images were acquired. FINDINGS: The lumbar spine is normal in curvature and alignment. Mild T10, moderate T11, severe T12, mild L1, moderate L2, and mild L3 compression fractures have chronic features. There is no evidence of edema on STIR images. No displacement or extension into the pedicles or posterior elements. The conus medullaris ends at T12 homogeneous signal. Cauda equina roots are normal. No soft tissue abnormalities. The T11-T12 through L4-5 disc levels are normal. At L5-S1, there is mild annular bulge and mild facet arthropathy. IMPRESSION: Multiple chronic osteoporotic compression fractures most severe at T12. Although MR features are chronic, they were not present on the lumbar CT two months ago Mild degeneration Interpreted and Authenticated by: Colin Evans 05/23/23
[2023-05-23] MEDS: MONTELUKAST 10 MG TABLET PO SCH (21:35)
[2023-05-24] MEDS: HYDROmorphone 0.5 MG/0.5 ML SYRINGE IV PRN ×4 (01:42→12:37)
[2023-05-24] MEDS: LORazepam 2 MG/ML VIAL IV PRN ×2 (02:25→07:07)
[2023-05-24] MEDS: IPRATROPIUM/ALBUTEROL 3 ML AMPUL.NEB NEB SCH ×4 (02:48→19:00)
[2023-05-24] MEDS: 0.9 % SODIUM CHLORIDE 10 ML SYRINGE IV SCH ×3 (05:00→20:52)
[2023-05-24] MEDS: oxyCODONE IR 5 MG TABLET PO PRN ×3 (07:07→18:53)
[2023-05-24] MEDS: BUDESONIDE 0.5 MG/2 ML AMPUL.NEB NEB SCH ×2 (07:17→19:00)
[2023-05-24] MEDS: INSULIN LISPRO 1 UNIT/0.01 ML UNIT SQ SCH ×4 (07:38→20:52)
[2023-05-24] MEDS: OMEPRAZOLE 20 MG CAPSULE PO SCH (07:38)
[2023-05-24] MEDS: predniSONE 20 MG TABLET PO SCH (07:39)
--- NOTE | 2023-05-24 08:02 | Internal Med Progress Note ---
SUBJECTIVE Subjective Patient information: Note initiated : 05/24/23 at 7:57 am Service Date, if different from initiated Date: [] Patient: Nuzhat Donis 67 y/o F admitted on 05/21/23. Chief Complaint: [] Interval history: Ms. Donis is a 67 year old female with a history of severe COPD, chronic hypoxia requiring 3 L/min oxygen supplementation at baseline, on chronic prednisone for COPD, osteoporosis, GERD, type 2 diabetes mellitus, obstructive sleep apnea who presented to the hospital for back pain. The patient was found to have vertebral compression fractures at T11, T12, L1, L2 and L5. The compression fracture at T12 was severe, all other compression fractures were felt to be mild. The the compression fractures were new compared to a CT scan 2 months prior and likely accounted for the patient's back pain. The patient was at her baseline oxygen requirement in the ED, she does have leukocytosis however was afebrile. Leukocytosis could be stress induced or secondary to steroids. The patient is on prednisone 15 mg daily chronically. Hospital medicine was asked to admit the patient for pain management. 05/22. Patient was more dyspneic this morning, chest x-ray obtained and did not show any acute changes. ABG showed normal pH, normal PCO2, PO2 64. BNP 445.8 however the patient does not appear to be volume overloaded. She does have a significant amount of wheezing. She was started on Solu-Medrol IV, home prednisone held for now. Scheduled DuoNebs and as needed albuterol nebs. The patient later recovered. At her baseline oxygen requirement of 3 L/min. Suspect anxiety to be playing a role the patient's symptoms. For pain control, I continued scheduled off her med, added scheduled Toradol, continue as needed o xycodone and IV Dilaudid. 05/23. No significant events reported overnight, patient continues on 3 L/min nasal cannula oxygen supplementation. She is in a significant amount of pain this morning and feels anxious. So far unable to obtain a TLSO brace. Transfer to [facility]. 05/24 No overnight event or new complaints. Patient pain seems to be relatively controlled. Patient is mildly wheezy but says that is normal for her. Is on scheduled DuoNebs. Wore her CPAP last night. On 3 L nasal cannula with good sats. Review of Systems: denies headache/fever/chills/nausea/vomiting/chest or abdominal pain/cough/dyspnea/diarrhea. Otherwise see above. PHYSICAL EXAM General: Alert, Awake, No acute Distress Eyes/N/T: EOMI, no scleral icterus, Head/Neck: neck supple, full ROM, CV: RRR, No murmurs, Pulm: Diminished b/l and mild wheezing b/l, supp O2 Abd: soft, nontender, +BS x4 Ext: no clubbing/cyanosis/edema, nontender Neuro: Alert, no focal deficits, moves all extremities, , sensations intact b/l upper/lower Psychiatric: Skin: warm/dry, normal color Constitutional Vitals: Vital Signs Temp Pulse Resp BP Pulse Ox O2 Del Method O2 Flow Rate 98 F 103 H 22 154/67 92 Oxymask 3 05/24/23 07:48 05/24/23 07:29 05/24/23 07:29 05/24/23 00:01 05/24/23 07:17 05/24/23 07:17 05/24/23 07:17 Period Temp Pulse Resp BP Sys/Gorman Pulse Ox O2 Del Method O2 Flow Rate Last 24 Hr 97.4 F-98 F 78-110 20-28 136-160/62-85 89-98 CPAP-Oxymask 3- 10 Intake and Output 05/23/23 05/24/23 05/24/23 19:59 03:59 11:59 Intake Total 540 100 240 Output Total 350 100 Balance 190 100 140 Weight 76.657 kg Intake & Output: Intake & Output 05/23/23 05/24/23 05/24/23 19:59 03:59 11:59 Intake Total 540 100 240 Output Total 350 100 Balance 190 100 140 Weight 76.657 kg Intake: IV 100 100 Oral 440 240 Output: Void Amount 350 100 Other: Meal Dinner Percent of Meal Consumed 100% Feeding Ability Independent Urine Appearance Clear Clear Urine Color Dark Yellow Dark Yellow Urine Odor Strong Normal Stool Size Small Stool Color Brown Stool Consistency Soft Loose # Voids 1 OBJ DATA Labs 05/23/23 07:00 05/23/23 07:00 Labs: Abnormal Lab Results 05/23/23 05/22/23 05/22/23 07:00 08:27 07:39 WBC 11.9 H Immature Gran % (Auto) 2.5 H 1.4 H Lymph % (Auto) 11.2 L Lymph # (Auto) 1.34 L [place] # (Auto) 1.08 H Immature Gran # 0.30 H 0.14 H Absolute Neutrophils 9.13 H POC pO2 64 L Hgb O2 Saturation 91.0 L Potassium Phosphorus GGT Alkaline Phosphatase Lactate Dehydrogenase NT-Pro-B Natriuret Pep Triglycerides 05/22/23 05/21/23 07:39 14:45 WBC Immature Gran % (Auto) Lymph % (Auto) Lymph # (Auto) [place] # (Auto) Immature Gran # Absolute Neutrophils POC pO2 Hgb O2 Saturation Potassium 5.4 H Phosphorus 4.7 H GGT 37 H Alkaline Phosphatase 200 H 191 H Lactate Dehydrogenase 311 H 292 H NT-Pro-B Natriuret Pep 445.8 H Triglycerides 177 H 230 H Meds: Medications Albuterol Sulfate (Albuterol Sulfate 2.5 Mg/3 Ml Nebulizer) 2.5 mg NEB Q2HP PRN PRN Reason: Shortness Of Breath Albuterol/Ipratropium (Ipratropium/Albuterol 3 Ml Ampul.Neb) 3 ml NEB Q4HRT [facility] Last Admin: 05/24/23 07:17 Dose: 3 ml Budesonide (Budesonide 0.5 Mg/2 Ml Ampul.Neb) 0.5 mg NEB BID [facility] Last Admin: 05/24/23 07:17 Dose: 0.5 mg Dextrose (Dextrose 50% 50 Ml Vial) 0 ml IV UD PRN PRN Reason: Per Sliding Scale Diagnostic Test (Pha) (Accu-Chek 1 Each Strip) 1 each FS ACHS [facility] Last Admin: 05/24/23 07:38 Dose: 1 each Ezetimibe (Ezetimibe 10 Mg Tablet) 10 mg PO QDAY [facility] Last Admin: 05/23/23 08:02 Dose: 10 mg Enoxaparin Sodium (Enoxaparin 40 Mg/0.4 Ml Syringe) 40 mg SQ DAILY [facility] Last Admin: 05/23/23 08:02 Dose: 40 mg Glucose (Dextrose 31 Gm Oral.Susp) 15 gm PO PRN PRN PRN Reason: Hypoglycemia Hydromorphone HCl (Hydromorphone 0.5 Mg/0.5 Ml Syringe) 0.5 - 1 mg IV Q2HP PRN; Protocol PRN Reason: Per Pain Protocol Last Admin: 05/24/23 06:10 Dose: 0.5 mg Hydroxyzine HCl (Hydroxyzine 25 Mg Tablet) 25 mg PO TIDP PRN PRN Reason: Anxiety Last Admin: 05/22/23 12:16 Dose: 25 mg Acetaminophen (Ofirmev) 1,000 mg in 100 mls @ 200 mls/hr IV Q8H [facility]; Protocol Last Infusion: 05/23/23 23:25 Dose: Infused Insulin Human Lispro (Insulin Lispro 1 Unit/0.01 Ml Unit) 0 unit SQ ACHS [facility]; Protocol Last Admin: 05/24/23 07:38 Dose: Not Given Ketorolac Tromethamine (Ketorolac 15 Mg/Ml Vial) 15 mg IV Q6HP PRN PRN Reason: pain Stop: 05/26/23 08:44 Last Admin: 05/23/23 11:56 Dose: 15 mg Lidocaine (Lidocaine Patch) 1 patch TOPICAL DAILY@1000 KATERINE Last Admin: 05/23/23 11:10 Dose: 1 patch Lorazepam (Lorazepam 2 Mg/Ml Vial) 0.5 mg IV Q2HP PRN PRN Reason: ANXIETY/SEDATION Last Admin: 05/24/23 07:07 Dose: 0.5 mg Methocarbamol (Methocarbamol 750 Mg Tablet) 750 mg PO TID [facility] Last Admin: 05/23/23 21:35 Dose: 750 mg Montelukast Sodium (Montelukast 10 Mg Tablet) 10 mg PO QHS [facility] Last Admin: 05/23/23 21:35 Dose: 10 mg Naloxone HCl (Naloxone Hcl 0.4 Mg/Ml Vial) 0.4 mg IV Q10M PRN PRN Reason: Opiate Reversal Omeprazole (Omeprazole 20 Mg Capsule) 20 mg PO ACB [facility] Last Admin: 05/24/23 07:38 Dose: 20 mg Ondansetron HCl (Ondansetron 4 Mg/2 Ml Vial) 4 mg IV Q6HP PRN PRN Reason: Nausea And Vomiting Last Admin: 05/23/23 15:19 Dose: 4 mg Oxycodone HCl (Oxycodone Ir 5 Mg Tablet) 5 - 10 mg PO Q4HP PRN; Protocol PRN Reason: Per Pain Protocol Last Admin: 05/24/23 07:07 Dose: 10 mg Polyethylene Glycol (Polyethylene Glycol 3350 17 Gm Packet) 17 gm PO DAILY [facility] Last Admin: 05/23/23 08:02 Dose: 17 gm Prednisone (Prednisone 20 Mg Tablet) 40 mg PO [facility] Last Admin: 05/24/23 07:39 Dose: 40 mg Senna/Docusate Sodium (Sennosides/Docusate Sodium 1 Tab Tablet) 1 tab PO BID [facility] Last Admin: 05/23/23 21:30 Dose: Not Given Sodium Chloride (0.9 % Sodium Chloride 10 Ml Syringe) 10 ml IV Q8 [facility] Last Admin: 05/24/23 05:00 Dose: 10 ml A/P Narrative A/P Narrative: A: #Intractable back pain: 2/2 multiple compression fractures, most severe at T12 - #Possible COPD (End-Stage w/chronic hypoxic respiratory failure on 3-4L@home) exacerbation: - on chronic prednisone #Leukocytosis likely steroid-induced #hyperkalemia: resolved #Dyslipidemia #Anxiety disorder #GERD #Obstructive sleep apnea on cpap #Obesity: bmi 33 Plan: -Analgesics: Scheduled off her med, as needed Toradol, lidocaine patch, as needed oxycodone, as needed IV Dilaudid, Robaxin TID -TLSO brace if possible to obtain when out of bed. -Transition to prednisone 40 mg daily, discontinued Solu-Medrol IV, complete 5 days of high dose steroid treatment then transition back to home prednisone 15 mg daily. -Oxygen supplementation, goal SPO2 88 to 92% for COPD. -Scheduled DuoNebs as needed albuterol nebs. -Ativan as needed for anxiety, holding home alprazolam for now. -Continue home budesonide, ezetimibe, hydroxyzine, montelukast, Prilosec. -CPAP at bedtime. -PT and OT. -If the patient's back pain develops into chronic pain, consider adding duloxet ine. -Consider vertebroplasty of T12 compression fracture if pain does not begin to improve soon. -CM for likely SNF placement -DVT prophylaxis: Lovenox CODE STATUS: Limited Time Spent With Patient Time: Total time spent is greater than 50% in coordination of care (as documented) at patient's floor/unit and/or counseling patient: Subsequent: Total time with patient: 50 - 65 Minutes QUALITY Stroke Symptom Onset Unknown: No VTE Deep Vein Thrombosis/Pulmonary Embolism Present on Admission: No
[2023-05-24] MEDS: METHOCARBAMOL 750 MG TABLET PO SCH ×3 (08:29→20:52)
[2023-05-24] MEDS: SENNOSIDES/DOCUSATE SODIUM 1 TAB TABLET PO SCH ×2 (08:29→20:52)
[2023-05-24] MEDS: hydrOXYzine 25 MG TABLET PO PRN ×3 (08:29→19:56)
[2023-05-24] MEDS: EZETIMIBE 10 MG TABLET PO SCH (08:29)
[2023-05-24] MEDS: POLYETHYLENE GLYCOL 3350 17 GM PACKET PO SCH (08:30)
[2023-05-24] MEDS: ACETAMINOPHEN 1,000 MG/100 ML BAG IV SCH ×3 (08:30→22:50)
[2023-05-24] MEDS: ENOXAPARIN 40 MG/0.4 ML SYRINGE SQ SCH (08:30)
[2023-05-24] MEDS: KETOROLAC 15 MG/ML VIAL IV PRN ×3 (08:57→20:51)
[2023-05-24] MEDS ORDERED: IPRATROPIUM/ALBUTEROL 3 ML AMPUL.NEB NEB PRN (09:28)
[2023-05-24] MEDS: LIDOCAINE PATCH TOPICAL SCH (11:04)
[2023-05-24] MEDS: MONTELUKAST 10 MG TABLET PO SCH (20:51)
[2023-05-25] MEDS: IPRATROPIUM/ALBUTEROL 3 ML AMPUL.NEB NEB SCH ×5 (00:14→23:29)
[2023-05-25] MEDS: HYDROmorphone 0.5 MG/0.5 ML SYRINGE IV PRN ×2 (00:26→07:29)
[2023-05-25] MEDS: 0.9 % SODIUM CHLORIDE 10 ML SYRINGE IV SCH ×6 (00:27→22:54)
[2023-05-25] MEDS: oxyCODONE IR 5 MG TABLET PO PRN ×6 (00:59→23:43)
[2023-05-25] MEDS: KETOROLAC 15 MG/ML VIAL IV PRN ×4 (03:00→21:03)
[2023-05-25] MEDS: BUDESONIDE 0.5 MG/2 ML AMPUL.NEB NEB SCH ×2 (07:00→20:35)
[2023-05-25] MEDS: ACETAMINOPHEN 1,000 MG/100 ML BAG IV SCH ×3 (07:30→22:53)
--- NOTE | 2023-05-25 08:09 | Internal Med Progress Note ---
SUBJECTIVE Subjective Patient information: Note initiated : 05/25/23 at 8:07 am Service Date, if different from initiated Date: [] Patient: Nuzhat Donis 67 y/o F admitted on 05/21/23. Chief Complaint: [] Interval history: Ms. Donis is a 67 year old female with a history of severe COPD, chronic hypoxia requiring 3 L/min oxygen supplementation at baseline, on chronic prednisone for COPD, osteoporosis, GERD, type 2 diabetes mellitus, obstructive sleep apnea who presented to the hospital for back pain. The patient was found to have vertebral compression fractures at T11, T12, L1, L2 and L5. The compression fracture at T12 was severe, all other compression fractures were felt to be mild. The the compression fractures were new compared to a CT scan 2 months prior and likely accounted for the patient's back pain. The patient was at her baseline oxygen requirement in the ED, she does have leukocytosis however was afebrile. Leukocytosis could be stress induced or secondary to steroids. The patient is on prednisone 15 mg daily chronically. Hospital medicine was asked to admit the patient for pain management. 05/22. Patient was more dyspneic this morning, chest x-ray obtained and did not show any acute changes. ABG showed normal pH, normal PCO2, PO2 64. BNP 445.8 however the patient does not appear to be volume overloaded. She does have a significant amount of wheezing. She was started on Solu-Medrol IV, home prednisone held for now. Scheduled DuoNebs and as needed albuterol nebs. The patient later recovered. At her baseline oxygen requirement of 3 L/min. Suspect anxiety to be playing a role the patient's symptoms. For pain control, I continued scheduled off her med, added scheduled Toradol, continue as needed o xycodone and IV Dilaudid. 05/23. No significant events reported overnight, patient continues on 3 L/min nasal cannula oxygen supplementation. She is in a significant amount of pain this morning and feels anxious. So far unable to obtain a TLSO brace. Transfer to [facility]. 05/24 No overnight event or new complaints. Patient pain seems to be relatively controlled. Patient is mildly wheezy but says that is normal for her. Is on scheduled DuoNebs. Wore her CPAP last night. On 3 L nasal cannula with good sats. 05/25 Patient states she slept okay. No overnight event or new complaints. Review of Systems: denies headache/fever/chills/nausea/vomiting/chest or abdominal pain/cough/dyspnea/diarrhea. Otherwise see above. PHYSICAL EXAM General: Alert, Awake, No acute Distress Eyes/N/T: EOMI, no scleral icterus, Head/Neck: neck supple, full ROM, CV: RRR, No murmurs, Pulm: Diminished b/l and no wheezingn today b/l, supp O2 Abd: soft, nontender, +BS x4 Ext: no clubbing/cyanosis/edema, nontender Neuro: Alert, no focal deficits, moves all extremities, , sensations intact b/l upper/lower Psychiatric: Skin: warm/dry, normal color Constitutional Vitals: Vital Signs Temp Pulse Resp BP Pulse Ox O2 Del Method O2 Flow Rate 97.9 F 84 20 153/93 93 Oxymask 3 05/25/23 04:00 05/25/23 06:46 05/25/23 06:46 05/25/23 04:00 05/25/23 06:37 05/25/23 06:37 05/25/23 06:37 Period Temp Pulse Resp BP Sys/Gorman Pulse Ox O2 Del Method O2 Flow Rate Last 24 Hr 97 F-98.0 F 84-108 16-92 151-165/76-93 82-96 CPAP-Room Air 2.5-4 Intake and Output 05/24/23 05/25/23 05/25/23 19:59 03:59 11:59 Intake Total 820 940 Output Total 400 700 Balance 420 240 Weight 76.232 kg Intake & Output: Intake & Output 05/24/23 05/25/23 05/25/23 19:59 03:59 11:59 Intake Total 820 940 Output Total 400 700 Balance 420 240 Weight 76.232 kg Intake: IV 100 100 Oral 720 840 Output: Void Amount 400 700 Other: Meal Dinner Percent of Meal Consumed 100% Urine Appearance Clear Urine Color Yellow Stool Size Small Moderate Stool Color Brown Brown Stool Consistency Loose Soft # Voids 1 # Bowel Movements 1 1 OBJ DATA Labs 05/23/23 07:00 05/23/23 07:00 Labs: Abnormal Lab Results 05/23/23 05/22/23 05/22/23 07:00 08:27 07:39 WBC 11.9 H Immature Gran % (Auto) 2.5 H 1.4 H Lymph % (Auto) 11.2 L Lymph # (Auto) 1.34 L [place] # (Auto) 1.08 H Immature Gran # 0.30 H 0.14 H Absolute Neutrophils 9.13 H POC pO2 64 L Hgb O2 Saturation 91.0 L Potassium Phosphorus GGT Alkaline Phosphatase Lactate Dehydrogenase NT-Pro-B Natriuret Pep Triglycerides 05/22/23 07:39 WBC Immature Gran % (Auto) Lymph % (Auto) Lymph # (Auto) [place] # (Auto) Immature Gran # Absolute Neutrophils POC pO2 Hgb O2 Saturation Potassium 5.4 H Phosphorus 4.7 H GGT 37 H Alkaline Phosphatase 200 H Lactate Dehydrogenase 311 H NT-Pro-B Natriuret Pep 445.8 H Triglycerides 177 H Meds: Medications Albuterol Sulfate (Albuterol Sulfate 2.5 Mg/3 Ml Nebulizer) 2.5 mg NEB Q2HP PRN PRN Reason: Shortness Of Breath Albuterol/Ipratropium (Ipratropium/Albuterol 3 Ml Ampul.Neb) 3 ml NEB Q6 [facility] Last Admin: 05/25/23 06:37 Dose: 3 ml Albuterol/Ipratropium (Ipratropium/Albuterol 3 Ml Ampul.Neb) 3 ml NEB Q4HP PRN PRN Reason: Shortness Of Breath Budesonide (Budesonide 0.5 Mg/2 Ml Ampul.Neb) 0.5 mg NEB BID [facility] Last Admin: 05/25/23 07:00 Dose: 0.5 mg Dextrose (Dextrose 50% 50 Ml Vial) 0 ml IV UD PRN PRN Reason: Per Sliding Scale Diagnostic Test (Pha) (Accu-Chek 1 Each Strip) 1 each FS ACHS [facility] Last Admin: 05/24/23 20:52 Dose: 1 each Ezetimibe (Ezetimibe 10 Mg Tablet) 10 mg PO QDAY [facility] Last Admin: 05/24/23 08:29 Dose: 10 mg Enoxaparin Sodium (Enoxaparin 40 Mg/0.4 Ml Syringe) 40 mg SQ DAILY [facility] Last Admin: 05/24/23 08:30 Dose: 40 mg Glucose (Dextrose 31 Gm Oral.Susp) 15 gm PO PRN PRN PRN Reason: Hypoglycemia Hydromorphone HCl (Hydromorphone 0.5 Mg/0.5 Ml Syringe) 0.5 - 1 mg IV Q2HP PRN; Protocol PRN Reason: Per Pain Protocol Last Admin: 05/25/23 07:29 Dose: 0.5 mg Hydroxyzine HCl (Hydroxyzine 25 Mg Tablet) 25 mg PO TIDP PRN PRN Reason: Anxiety Last Admin: 05/24/23 19:56 Dose: 25 mg Acetaminophen (Ofirmev) 1,000 mg in 100 mls @ 200 mls/hr IV Q8H [facility]; Protocol Last Admin: 05/25/23 07:30 Dose: 200 mls/hr Insulin Human Lispro (Insulin Lispro 1 Unit/0.01 Ml Unit) 0 unit SQ ACHS [facility]; Protocol Last Admin: 05/24/23 20:52 Dose: Not Given Ketorolac Tromethamine (Ketorolac 15 Mg/Ml Vial) 15 mg IV Q6HP PRN PRN Reason: pain Stop: 05/26/23 08:44 Last Admin: 05/25/23 03:00 Dose: 15 mg Lidocaine (Lidocaine Patch) 1 patch TOPICAL DAILY@1000 KATERINE Last Admin: 05/24/23 11:04 Dose: 1 patch Lorazepam (Lorazepam 2 Mg/Ml Vial) 0.5 mg IV Q2HP PRN PRN Reason: ANXIETY/SEDATION Last Admin: 05/24/23 07:07 Dose: 0.5 mg Methocarbamol (Methocarbamol 750 Mg Tablet) 750 mg PO TID [facility] Last Admin: 05/24/23 20:52 Dose: 750 mg Montelukast Sodium (Montelukast 10 Mg Tablet) 10 mg PO QHS [facility] Last Admin: 05/24/23 20:51 Dose: 10 mg Naloxone HCl (Naloxone Hcl 0.4 Mg/Ml Vial) 0.4 mg IV Q10M PRN PRN Reason: Opiate Reversal Omeprazole (Omeprazole 20 Mg Capsule) 20 mg PO ACB [facility] Last Admin: 05/24/23 07:38 Dose: 20 mg Ondansetron HCl (Ondansetron 4 Mg/2 Ml Vial) 4 mg IV Q6HP PRN PRN Reason: Nausea And Vomiting Last Admin: 05/23/23 15:19 Dose: 4 mg Oxycodone HCl (Oxycodone Ir 5 Mg Tablet) 5 - 10 mg PO Q4HP PRN; Protocol PRN Reason: Per Pain Protocol Last Admin: 05/25/23 04:52 Dose: 10 mg Polyethylene Glycol (Polyethylene Glycol 3350 17 Gm Packet) 17 gm PO DAILY [facility] Last Admin: 05/24/23 08:30 Dose: 17 gm Prednisone (Pred[facility] 20 Mg Tablet) [facility] Last Admin: 05/24/23 07:39 Dose: 40 mg Senna/Docusate Sodium (Sennosides/Docusate Sodium 1 Tab Tablet) 1 tab PO BID [facility] Last Admin: 05/24/23 20:52 Dose: 1 tab Sodium Chloride (0.9 % Sodium Chloride 10 Ml Syringe) 10 ml IV Q8 [facility] Last Admin: 05/25/23 05:48 Dose: Not Given A/P Narrative A/P Narrative: A: #Intractable back pain: 2/2 multiple compression fractures, most severe at T12 - #Possible COPD (End-Stage w/chronic hypoxic respiratory failure on 3-4L@home) exacerbation: - on chronic prednisone #Leukocytosis likely steroid-induced #hyperkalemia: resolved #Dyslipidemia #Anxiety disorder #GERD #Obstructive sleep apnea on cpap #Obesity: bmi 33 Plan: -Analgesics: as needed Toradol, lidocaine patch, as needed oxycodone, as needed IV Dilaudid, Robaxin TID -TLSO brace if possible to obtain when out of bed. -Transition to prednisone 40 mg daily, discontinued Solu-Medrol IV, complete 5 days of high dose steroid treatment then transition back to home prednisone 15 mg daily. -Oxygen supplementation, goal SPO2 88 to 92% for COPD. -Scheduled DuoNebs as needed albuterol nebs. -Ativan as needed for anxiety, holding home alprazolam for now. -Continue home budesonide, ezetimibe, hydroxyzine, montelukast, Prilosec. -CPAP at bedtime. -PT and OT. -If the patient's back pain develops into chronic pain, consider adding duloxetine. -Consider vertebroplasty of T12 compression fracture if pain does not begin to improve soon. -f/u with [facility] outpt -CM for likely SNF placement -DVT prophylaxis: Lovenox CODE STATUS: Limited Time Spent With Patient Time: Total time spent is greater than 50% in coordination of care (as documented) at patient's floor/unit and/or counseling patient: Subsequent: Total time with patient: 35 - 49 minutes QUALITY Stroke Symptom Onset Unknown: No VTE Deep Vein Thrombosis/Pulmonary Embolism Present on Admission: No
[2023-05-25] MEDS: EZETIMIBE 10 MG TABLET PO SCH (08:21)
[2023-05-25] MEDS: ENOXAPARIN 40 MG/0.4 ML SYRINGE SQ SCH (08:21)
[2023-05-25] MEDS: POLYETHYLENE GLYCOL 3350 17 GM PACKET PO SCH (08:21)
[2023-05-25] MEDS: METHOCARBAMOL 750 MG TABLET PO SCH ×3 (08:21→21:02)
[2023-05-25] MEDS: OMEPRAZOLE 20 MG CAPSULE PO SCH (08:22)
[2023-05-25] MEDS: predniSONE 20 MG TABLET PO SCH (08:22)
[2023-05-25] MEDS: INSULIN LISPRO 1 UNIT/0.01 ML UNIT SQ SCH ×4 (08:23→21:02)
[2023-05-25] MEDS: hydrOXYzine 25 MG TABLET PO PRN ×3 (09:37→21:02)
[2023-05-25] MEDS: SENNOSIDES/DOCUSATE SODIUM 1 TAB TABLET PO SCH ×2 (09:41→21:03)
--- NOTE | 2023-05-25 10:41 | Discharge Summary ---
Discharge Provider Provider IMPORTANT FOLLOW-UP INFORMATION FOR PCP: Patient information: Note initiated : 05/25/23 at 10:40 am Service Date, if different from initiated Date: [] Patient: Nuzhat Donis 67 y/o F admitted on 05/21/23. Chief Complaint: [] Date of admission: 05/21/23 12:23 Discharge date: 05/26/23 Primary care physician: Krystal Laird DNP Consults: 05/21/23 Consult to Physician [CONS] Stat Comment: Consulting Provider: Cristofer Ornelas Reason For Exam: Physician to Consult COURSE Hospital Course Hospital course: Interval history: Ms. Donis is a 67 year old female with a history of severe COPD, chronic hypoxia requiring 3 L/min oxygen supplementation at baseline, on chronic prednisone for COPD, osteoporosis, GERD, type 2 diabetes mellitus, obstructive sleep apnea who presented to the hospital for back pain. The patient was found to have vertebral compression fractures at T11, T12, L1, L2 and L5. The compression fracture at T12 was severe, all other compression fractures were felt to be mild. The the compression fractures were new compared to a CT scan 2 months prior and likely accounted for the patient's back pain. The patient was at her baseline oxygen requirement in the ED, she does have leukocytosis however was afebrile. Leukocytosis could be stress induced or secondary to steroids. The patient is on prednisone 15 mg daily chronically. Hospital medicine was asked to admit the patient for pain management. 05/22. Patient was more dyspneic this morning, chest x-ray obtained and did not show any acute changes. ABG showed normal pH, normal PCO2, PO2 64. BNP 445.8 however the patient does not appear to be volume overloaded. She does have a significant amount of wheezing. She was started on Solu-Medrol IV, home prednisone held for now. Scheduled DuoNebs and as needed albuterol nebs. The patient later recovered. At her baseline oxygen requirement of 3 L/min. Suspect anxiety to be playing a role the patient's symptoms. For pain control, I continued scheduled off her med, added scheduled Toradol, continue as needed oxycodone and IV Dilaudid. 05/23. No significant events reported overnight, patient continues on 3 L/min nasal cannula oxygen supplementation. She is in a significant amount of pain this morning and feels anxious. So far unable to obtain a TLSO brace. Transfer to [facility]. 05/24 No overnight event or new complaints. Patient pain seems to be relatively controlled. Patient is mildly wheezy but says that is normal for her. Is on scheduled DuoNebs. Wore her CPAP last night. On 3 L nasal cannula with good sats. 05/25 Patient states she slept okay. No overnight event or new complaints. 05/26 Patient states she was feeling well slept okay. Although this morning she says she inhaled large amount of phlegm while on her cpap and is currently on a oxy mask but is feeling better. A: #Intractable back pain: 2/2 multiple compression fractures, most severe at T12 #Possible COPD (End-Stage w/chronic hypoxic respiratory failure on 3-4L@home) exacerbation: - on chronic prednisone #Leukocytosis likely steroid-induced #hyperkalemia: resolved #Dyslipidemia #Anxiety disorder #GERD #Obstructive sleep apnea on cpap #Obesity: bmi 33 Plan: -TLSO brace if possible to obtain when out of bed. -f/u with [facility] out[facility] Discharge diagnosis: intractable back pain from multiple compression fractures Secondary discharge diagnosis: T-spine possible COPD exacerbation dyslipidemia anxiety GERD obstructive sleep apnea obesity Time Spent with Patient Time attestation: Total time spent providing and/or coordinating discharge services: Time spent: Greater than 30 minutes EXAM Constitutional Vitals: Temp Pulse Resp BP Pulse Ox O2 Del Method O2 Flow Rate 97.7 F 87 22 157/95 96 Nasal Cannula 3 05/25/23 08:00 05/25/23 08:00 05/25/23 08:00 05/25/23 08:00 05/25/23 08:00 05/25/23 08:00 05/25/23 08:00 Discharge Plan Patient/Caregiver Discharge Instructions Activity: increase activity as tolerated Diet: Regular Diet Prescriptions: New lidocaine [Lidoderm] 5 % adhesive patch,medicated 1 patch topical QDAY Qty: 15 0RF Rx Instructions: leave on most painful area for up to 12 hrs Continued budesonide 0.5 mg/2 mL suspension for nebulization 0.5 mg inhalation BID Qty: 60 12RF oxygen See Rx Instructions intranasal CONT Rx Instructions: 4- 5 lpm intranasal pulse flow with activity. 4 lpm at home 2lpm continous flow bled in to cpap. metformin 500 mg tablet extended release 24 hr 500 mg PO QDAY omeprazole 20 mg capsule,delayed release(DR/EC) 20 mg PO QDAY (DME) Shower chair Qty: 1 0RF Rx Instructions: Shower chair or bench due to generalized weakness from chronic obstructive lung disease and hypoxia albuterol sulfate 2.5 mg /3 mL (0.083 %) solution for nebulization 2.5 mg inhalation QID Qty: 360 11RF ezetimibe 10 mg tablet 10 mg PO QDAY nystatin 100,000 unit/mL suspension 1 ml PO QID 10 Days Qty: 60 2RF Rx Instructions: swish and swallow montelukast 10 mg Tablet 10 mg PO QHS prednisone 10 mg tablet 15 mg PO QAM hydroxyzine HCl 50 mg tablet 25 mg PO TID PRN (Reason: anxiety) methocarbamol 750 mg tablet 750 mg PO Q8H PRN (Reason: muscle spasm) Qty: 10 0RF hydrocodone-acetaminophen 7.5-325 mg tablet 1 tab PO BID PRN (Reason: pain) Qty: 20 0RF oxycodone 10 mg tablet 5 - 10 mg PO Q4H MDD 6 PRN (Reason: pain) Qty: 20 0RF alprazolam 0.25 mg tablet 0.25 mg PO BID Qty: 10 0RF Follow Up Plan Follow up with: Krystal Laird DNP [Primary Care Provider] - Jose E Thakkar MD [Physician] - Patient Disposition: Xfer SNF Prognosis: Fair Rehab Potential: Fair I certify that the patient requires SNF services: Yes Overall status at discharge: patient is progressing back to baseline Discharge Orders: Discharge Order (Routine); Ordered 05/26/23 [facility] Thromb[facility]/Pulmonary Embolism Present on Admission: No
[2023-05-25] MEDS: LIDOCAINE PATCH TOPICAL SCH (11:09)
[2023-05-25] MEDS: LORazepam 2 MG/ML VIAL IV PRN (13:20)
[2023-05-25] MEDS: ALBUTEROL SULFATE 2.5 MG/3 ML NEBULIZER NEB PRN (20:34)
[2023-05-25] MEDS: MONTELUKAST 10 MG TABLET PO SCH (21:02)
[2023-05-26] MEDS: ALBUTEROL SULFATE 2.5 MG/3 ML NEBULIZER NEB PRN ×2 (02:51→12:30)
[2023-05-26] MEDS: KETOROLAC 15 MG/ML VIAL IV PRN ×2 (02:59→08:43)
[2023-05-26] MEDS: oxyCODONE IR 5 MG TABLET PO PRN ×3 (04:48→14:11)
[2023-05-26] MEDS: 0.9 % SODIUM CHLORIDE 10 ML SYRINGE IV SCH ×2 (04:49→05:52)
[2023-05-26] MEDS: HYDROmorphone 0.5 MG/0.5 ML SYRINGE IV PRN ×2 (05:51→11:31)
[2023-05-26] MEDS: ACETAMINOPHEN 1,000 MG/100 ML BAG IV SCH (06:50)
[2023-05-26] MEDS: IPRATROPIUM/ALBUTEROL 3 ML AMPUL.NEB NEB SCH (06:50)
[2023-05-26] MEDS: OMEPRAZOLE 20 MG CAPSULE PO SCH (06:57)
[2023-05-26] MEDS: BUDESONIDE 0.5 MG/2 ML AMPUL.NEB NEB SCH ×2 (06:58→08:29)
--- NOTE | 2023-05-26 07:41 | Internal Med Progress Note ---
SUBJECTIVE Subjective Patient information: Note initiated : 05/26/23 at 7:39 am Service Date, if different from initiated Date: [] Patient: Nuzhat Donis 67 y/o F admitted on 05/21/23. Chief Complaint: [] Interval history: Ms. Donis is a 67 year old female with a history of severe COPD, chronic hypoxia requiring 3 L/min oxygen supplementation at baseline, on chronic prednisone for COPD, osteoporosis, GERD, type 2 diabetes mellitus, obstructive sleep apnea who presented to the hospital for back pain. The patient was found to have vertebral compression fractures at T11, T12, L1, L2 and L5. The compression fracture at T12 was severe, all other compression fractures were felt to be mild. The the compression fractures were new compared to a CT scan 2 months prior and likely accounted for the patient's back pain. The patient was at her baseline oxygen requirement in the ED, she does have leukocytosis however was afebrile. Leukocytosis could be stress induced or secondary to steroids. The patient is on prednisone 15 mg daily chronically. Hospital medicine was asked to admit the patient for pain management. 05/22. Patient was more dyspneic this morning, chest x-ray obtained and did not show any acute changes. ABG showed normal pH, normal PCO2, PO2 64. BNP 445.8 however the patient does not appear to be volume overloaded. She does have a significant amount of wheezing. She was started on Solu-Medrol IV, home prednisone held for now. Scheduled DuoNebs and as needed albuterol nebs. The patient later recovered. At her baseline oxygen requirement of 3 L/min. Suspect anxiety to be playing a role the patient's symptoms. For pain control, I continued scheduled off her med, added scheduled Toradol, continue as needed o xycodone and IV Dilaudid. 05/23. No significant events reported overnight, patient continues on 3 L/min nasal cannula oxygen supplementation. She is in a significant amount of pain this morning and feels anxious. So far unable to obtain a TLSO brace. Transfer to [facility]. 05/24 No overnight event or new complaints. Patient pain seems to be relatively controlled. Patient is mildly wheezy but says that is normal for her. Is on scheduled DuoNebs. Wore her CPAP last night. On 3 L nasal cannula with good sats. 05/25 Patient states she slept okay. No overnight event or new complaints. 05/26 Patient states she was feeling well slept okay. Although this morning she says she inhaled large amount of phlegm while on her cpap and is currently on a oxy mask but is feeling better. Review of Systems: denies headache/fever/chills/nausea/vomiting/chest or abdominal pain/cough/dyspnea/diarrhea. Otherwise see above. PHYSICAL EXAM General: Alert, Awake, No acute Distress Eyes/N/T: EOMI, no scleral icterus, Head/Neck: neck supple, full ROM, CV: RRR, No murmurs, Pulm: mild rhonchi/wheezingl, supp O2 Abd: soft, nontender, +BS x4 Ext: no clubbing/cyanosis/edema, nontender Neuro: Alert, no focal deficits, moves all extremities, , sensations intact b/l upper/lower Psychiatric: Skin: warm/dry, normal color Constitutional Vitals: Vital Signs Temp Pulse Resp BP Pulse Ox O2 Del Method O2 Flow Rate 97.6 F 89 23 H 179/80 93 CPAP 3 05/26/23 00:00 05/26/23 06:50 05/26/23 06:50 05/26/23 04:00 05/26/23 06:50 05/26/23 06:50 05/26/23 06:50 Period Temp Pulse Resp BP Sys/Gorman Pulse Ox O2 Del Method O2 Flow Rate Last 24 Hr 97.4 F-98.2 F 81-95 20-30 136-179/71-95 92-98 CPAP-Oxymask 3- 3 Intake and Output 05/25/23 05/26/23 05/26/23 19:59 03:59 11:59 Intake Total 500 580 Output Total 450 400 Balance 50 180 Weight 74.871 kg Intake & Output: Intake & Output 05/25/23 05/26/23 05/26/23 19:59 03:59 11:59 Intake Total 500 580 Output Total 450 400 Balance 50 180 Weight 74.871 kg Intake: IV 100 100 Oral 400 480 Output: Void Amount 450 400 Other: Meal Lunch Percent of Meal Consumed 50% Feeding Ability Independent Urine Color Yellow Stool Size Small Small Stool Color Brown Stool Consistency Loose Loose # Voids 1 # Bowel Movements 1 1 OBJ DATA Labs 05/23/23 07:00 05/23/23 07:00 Meds: Medications Albuterol Sulfate (Albuterol Sulfate 2.5 Mg/3 Ml Nebulizer) 2.5 mg NEB Q2HP PRN PRN Reason: Shortness Of Breath Last Admin: 05/26/23 02:51 Dose: 2.5 mg Albuterol/Ipratropium (Ipratropium/Albuterol 3 Ml Ampul.Neb) 3 ml NEB Q6 KATERINE Last Admin: 05/26/23 06:50 Dose: 3 ml Albuterol/Ipratropium (Ipratropium/Albuterol 3 Ml Ampul.Neb) 3 ml NEB Q4HP PRN PRN Reason: Shortness Of Breath Budesonide (Budesonide 0.5 Mg/2 Ml Ampul.Neb) 0.5 mg NEB BID [facility] Last Admin: 05/26/23 06:58 Dose: 0.5 mg Dextrose (Dextrose 50% 50 Ml Vial) 0 ml IV UD PRN PRN Reason: Per Sliding Scale Diagnostic Test (Pha) (Accu-Chek 1 Each Strip) 1 each FS ACHS [facility] Last Admin: 05/25/23 21:02 Dose: 1 each Ezetimibe (Ezetimibe 10 Mg Tablet) 10 mg PO QDAY [facility] Last Admin: 05/25/23 08:21 Dose: 10 mg Enoxaparin Sodium (Enoxaparin 40 Mg/0.4 Ml Syringe) 40 mg SQ DAILY [facility] Last Admin: 05/25/23 08:21 Dose: 40 mg Glucose (Dextrose 31 Gm Oral.Susp) 15 gm PO PRN PRN PRN Reason: Hypoglycemia Hydromorphone HCl (Hydromorphone 0.5 Mg/0.5 Ml Syringe) 0.5 - 1 mg IV Q2HP PRN; Protocol PRN Reason: Per Pain Protocol Last Admin: 05/26/23 05:51 Dose: 0.5 mg Hydroxyzine HCl (Hydroxyzine 25 Mg Tablet) 25 mg PO TIDP PRN PRN Reason: Anxiety Last Admin: 05/25/23 21:02 Dose: 25 mg Acetaminophen (Ofirmev) 1,000 mg in 100 mls @ 200 mls/hr IV Q8H KATERINE; Protocol Last Admin: 05/26/23 06:50 Dose: 200 mls/hr Insulin Human Lispro (Insulin Lispro 1 Unit/0.01 Ml Unit) 0 unit SQ ACHS [facility]; Protocol Last Admin: 05/25/23 21:02 Dose: Not Given Ketorolac Tromethamine (Ketorolac 15 Mg/Ml Vial) 15 mg IV Q6HP PRN PRN Reason: pain Stop: 05/26/23 08:44 Last Admin: 05/26/23 02:59 Dose: 15 mg Lidocaine (Lidocaine Patch) 1 patch TOPICAL DAILY@1000 [facility] Last Admin: 05/25/23 11:09 Dose: 1 patch Lorazepam (Lorazepam 2 Mg/Ml Vial) 0.5 mg IV Q2HP PRN PRN Reason: ANXIETY/SEDATION Last Admin: 05/25/23 13:20 Dose: 0.5 mg Methocarbamol (Methocarbamol 750 Mg Tablet) 750 mg PO TID [facility] Last Admin: 05/25/23 21:02 Dose: 750 mg Montelukast Sodium (Montelukast 10 Mg Tablet) 10 mg PO QHS [facility] Last Admin: 05/25/23 21:02 Dose: 10 mg Naloxone HCl (Naloxone Hcl 0.4 Mg/Ml Vial) 0.4 mg IV Q10M PRN PRN Reason: Opiate Reversal Omeprazole (Omeprazole 20 Mg Capsule) 20 mg PO ACB [facility] Last Admin: 05/26/23 06:57 Dose: 20 mg Ondansetron HCl (Ondansetron 4 Mg/2 Ml Vial) 4 mg IV Q6HP PRN PRN Reason: Nausea And Vomiting Last Admin: 05/23/23 15:19 Dose: 4 mg Oxycodone HCl (Oxycodone Ir 5 Mg Tablet) 5 - 10 mg PO Q4HP PRN; Protocol PRN Reason: Per Pain Protocol Last Admin: 05/26/23 04:48 Dose: 10 mg Polyethylene Glycol (Polyethylene Glycol 3350 17 Gm Packet) 17 gm PO DAILY [facility] Last Admin: 05/25/23 08:21 Dose: 17 gm Prednisone (Prednisone 20 Mg Tablet) 40 mg PO [facility] Last Admin: 05/25/23 08:22 Dose: 40 mg Senna/Docusate Sodium (Sennosides/Docusate Sodium 1 Tab Tablet) 1 tab PO BID [facility] Last Admin: 05/25/23 21:03 Dose: Not Given Sodium Chloride (0.9 % Sodium Chloride 10 Ml Syringe) 10 ml IV Q8 [facility] Last Admin: 05/26/23 05:52 Dose: 10 ml A/P Narrative A/P Narrative: A: #Intractable back pain: 2/2 multiple compression fractures, most severe at T12 - #Possible COPD (End-Stage w/chronic hypoxic respiratory failure on 3-4L@home) exacerbation: - on chronic prednisone #Leukocytosis likely steroid-induced #hyperkalemia: resolved #Dyslipidemia #Anxiety disorder #GERD #Obstructive sleep apnea on cpap #Obesity: bmi 33 Plan: -Analgesics: as needed Toradol, lidocaine patch, as needed oxycodone, as needed IV Dilaudid, Robaxin TID -TLSO brace if possible to obtain when out of bed. -Transition to prednisone 40 mg daily, discontinued Solu-Medrol IV, complete 5 days of high dose steroid treatment then transition back to home prednisone 15 mg daily. -Oxygen supplementation, goal SPO2 88 to 92% for COPD. -Scheduled DuoNebs as needed albuterol nebs. -Ativan as needed for anxiety, holding home alprazolam for now. -Continue home budesonide, ezetimibe, hydroxyzine, montelukast, Prilosec. -CPAP at bedtime. -PT and OT. -If the patient's back pain develops into chronic pain, consider adding duloxetine. -Consider vertebroplasty of T12 compression fracture if pain does not begin to improve soon. -f/u with [facility] out[facility] -CM for likely SNF placement -DVT prophylaxis: Lovenox CODE STATUS: Limited Time Spent With Patient Time: Total time spent is greater than 50% in coordination of care (as documented) at patient's floor/unit and/or counseling patient: Subsequent: Total time with patient: 35 - 49 minutes QUALITY Stroke Symptom Onset Unknown: No VTE Deep Vein Thrombosis/Pulmonary Embolism Present on Admission: No
[2023-05-26] MEDS: INSULIN LISPRO 1 UNIT/0.01 ML UNIT SQ SCH ×2 (07:49→11:29)
[2023-05-26] MEDS: ENOXAPARIN 40 MG/0.4 ML SYRINGE SQ SCH (08:43)
[2023-05-26] MEDS: POLYETHYLENE GLYCOL 3350 17 GM PACKET PO SCH (08:43)
[2023-05-26] MEDS: predniSONE 20 MG TABLET PO SCH (08:43)
[2023-05-26] MEDS: EZETIMIBE 10 MG TABLET PO SCH (08:43)
[2023-05-26] MEDS: SENNOSIDES/DOCUSATE SODIUM 1 TAB TABLET PO SCH (08:43)
[2023-05-26] MEDS: METHOCARBAMOL 750 MG TABLET PO SCH ×2 (08:43→14:11)
[2023-05-26] MEDS: LIDOCAINE PATCH TOPICAL SCH (08:49)
[2023-05-26] MEDS: hydrOXYzine 25 MG TABLET PO PRN (11:31)
[2023-05-27] MEDS ORDERED: predniSONE 10 MG TABLET PO SCH (08:00)
== END 2023-05-26 14:25 | DRG 552 ==
LOC: ED 00:56 → MEDSUR 12:23 → ICU 05-22 09:20
PROVIDERS: ADMIT Internal Medicine; ATTEND Internal Medicine